=== PATIENT | male | born 1960 | race Caucasian/White ===

== ENCOUNTER 2016-04-27 05:23 | Inpatient (IN) | payer BC ==
[2016-04-01 12:53] VITALS: BMI 37.0
--- NOTE | 2016-04-01 13:26 | PAT Medication Instructions ---
Service Date Apr 01, 2016. Current Home Medication List Allopurinol (Allopurinol), 300 MG PO HS Amlodipine (Norvasc), 5 MG PO HS Aspirin (Aspirin 81), 1 TAB PO HS Atorvastatin (Lipitor), 20 MG PO HS Esomeprazole Magnesium (Nexium), 40 MG PO HS Levothyroxine Sodium (Synthroid), 75 MCG PO HS Losartan Potassium (Cozaar), 1 TAB PO HS Winn-3 Fatty Acids (Fish Oil), 1,200 MG PO HS Sennosides-Docusate Sodium (Stool Softener), 1 TAB PO HS Medication Instructions For Your Scheduled Surgery - Hold the following medications 2 weeks prior to surgery: Winn-3 Fatty Acids (Fish Oil), 1,200 MG PO HS - Hold the following medications evening prior to surgery: Losartan Potassium (Cozaar), 1 TAB PO HS - Take the following medications as scheduled the night before surgery: Sennosides-Docusate Sodium (Stool Softener), 1 TAB PO HS Esomeprazole Magnesium (Nexium), 40 MG PO HS Levothyroxine Sodium (Synthroid), 75 MCG PO HS Allopurinol (Allopurinol), 300 MG PO HS Amlodipine (Norvasc), 5 MG PO HS Aspirin (Aspirin 81), 1 TAB PO HS Atorvastatin (Lipitor), 20 MG PO HS If you have any questions please call us at [phone] or [phone] ( Jane) or [phone]
--- NOTE | 2016-04-01 14:20 | DIAGNOSTIC IMAGING REPORT ---
CHEST PREADMISSION(PA/LAT) HISTORY: Preop. COMPARISON: Chest 05/23/2013. FINDINGS: The lungs are clear. Cardiac silhouette is normal in size. No pleural effusions. No pneumothorax. IMPRESSION: No acute process. Electronically signed by: Vicente Meng M.D. 04/01/2016 2:18 PM
[2016-04-01 14:50] LABS: BASO % 0.4 %; BASO ABS # 0.02 K/uL (0-0.2); COMPLETE YES; EOS % 5.5 %; HEMATOCRIT 42.5 % (42-52); IG% 0.2 %; LYMPH % 25.3 %; LYMPH ABS # 1.38 K/uL (1.2-3.4); MEAN CELL VOLUME 90.8 fL (80-100); MEAN CORPUSCULAR HEMOGLOBIN 31.2 pg (25-34); MEAN CORPUSCULAR HGB CONC 34.4 g/dl (32-36); MEAN PLATELET VOLUME 9.4 fL (7.4-10.4); MONO % 6.6 %; PLATELET COUNT 217 K/uL (130-400); RED BLOOD COUNT 4.68 M/uL (4.7-6.1); WHITE BLOOD COUNT 5.45 K/uL (4.8-10.8)
[2016-04-01 14:57] LABS: URINE APPEARANCE CLEAR (CLEAR); URINE BILIRUBIN NEG (NEG); URINE COLOR YELLOW; URINE EPITHELIAL CELL AUTO 0-5 /lpf (0-5); URINE NITRITE NEG (NEG); URINE SPECIFIC GRAVITY 1.016 (1.000-1.030); UROBILINOGEN NEG (NEG); ZZUR CULT IF INDIC CLEAN CATCH NO
[2016-04-01 15:04] LABS: PARTIAL THROMBOPLASTIN RATIO 1.2; PROTHROMBIN TIME (PATIENT) 10.6 SECONDS (9.0-12.0)
[2016-04-01 15:05] LABS: MANUAL MICROSCOPIC REQUIRED? NO; REVIEW REQ? NO
[2016-04-01 15:24] LABS: ESTIMATED AVERAGE GLUCOSE 123 mg/dl; HA1C FLAG Normal (Normal)
[2016-04-01 15:37] LABS: BUN/CREATININE RATIO 16.2 (10-20)
--- NOTE | 2016-04-26 18:37 | HISTORY & PHYSICAL EXAMINATION ---
DATE OF ADMISSION: 04/27/2016 CHIEF COMPLAINT: Chronic right hip pain. HISTORY OF PRESENT ILLNESS: This is a 55-year-old male patient of Dr. Tobar'carmen complaining of chronic right hip pain, longstanding, now progressively getting worse. The patient has been diagnosed with end-stage osteoarthritis per clinical and radiographic exams. The patient has failed conservative treatment including anti-inflammatories and intraarticular injections. The patient has increased pain with weightbearing activities and his pain does interfere with his activities of daily living. PAST MEDICAL HISTORY: Hypertension, hypercholesterolemia, sleep apnea, hypothyroidism, osteoarthritis, acid reflux, obesity. SOCIAL HISTORY: Nonsmoker, nondrinker. PAST SURGICAL HISTORY: Hernia repair, bilateral knee surgeries and right hand surgery. REVIEW OF SYSTEMS: The patient complains of chronic right hip pain. Otherwise, denies any shortness of breath, chest pain, nausea, vomiting or any other joint complaints. FAMILY HISTORY: Noncontributory. MEDICATIONS: 1. Meloxicam 15 mg daily. 2. Claritin 10 mg daily. 3. Lipitor 20 mg daily. 4. Norvasc 5 mg daily. 5. Cozaar 50 mg daily. 6. MiraLax 17 grams by mouth with water. 7. Allopurinol 300 mg daily. 8. Synthroid 75 mcg daily. 9. Lasix 20 mg daily. 10. Fish oil 1200 mg daily. 11. Aspirin 81 mg daily. ALLERGIES: No known drug allergies. PHYSICAL EXAMINATION: GENERAL: Well-developed, well-nourished 55-year-old male in no acute distress. He is alert and oriented x3 and pleasant. HEENT: Normocephalic, atraumatic. Extraocular motions are intact. Pupils are equal and reactive to light. HEART: Regular rate and rhythm. No murmurs are appreciated. LUNGS: Clear. ABDOMEN: Soft and nontender. EXTREMITIES: Right hip reveals pain with passive range of motion. He has a mild flexion contracture. Has 5/5 strength with pain. Neurologically and neurovascularly he is intact in his right lower extremity. DIAGNOSES: Right hip end-stage osteoarthritis, hypertension, hypercholesterolemia, sleep apnea, hypothyroidism, osteoarthritis, acid reflux, obesity. PLAN: The patient was advised of his diagnoses. Indications, risks, benefits, and postop course have all been reviewed. The patient wishes to proceed with a right total hip arthroplasty. Necessary consent forms, preoperative clearances will be obtained.
[2016-04-27] VITALS (11 sets, daily range): BP systolic 107–143; BP diastolic 66–95; PULSE 52–105; TEMP 36.5–37.2; O2SAT 93–99; Ht 177.8 cm; Wt 116.6 kg
[~2016-04-27] VITALS: Ht 177.8 cm; Wt 116.6 kg
[~2016-04-27 05:23] MED LIST: ALL300 PO; AMLO-110 PO; ASPI-435 PO; ATOR-22 PO; CZR50 PO; LEVO75TA PO; NXM/40 PO; OMEG120013 PO; SENNTAB23 PO
[2016-04-27] MEDS ORDERED: METOCLOPRAMIDE HCL 10 MG TAB PO SCH (06:00)
[2016-04-27] MEDS ORDERED: GABAPENTIN 300 MG CAP PO SCH (06:00)
[2016-04-27] MEDS ORDERED: ROPIVACAINE 5MG/ML 30 ML 150 MG, BUPIVACAINE/EPINEPHR 0.5% MPF 30 ML, KETOROLAC TROMETH... INFIL SCH ×6 (06:00)
[2016-04-27] MEDS ORDERED: CeleBREX 200 MG CAP PO SCH (06:00)
[2016-04-27] MEDS ORDERED: LACTATED RINGER'S 1000ML IV SCH (06:00)
[2016-04-27] MEDS ORDERED: DEXAMETHASONE 4 MG TAB PO SCH (06:00)
[2016-04-27] MEDS ORDERED: ACETAMINOPHEN 500 MG TAB PO SCH (06:00)
[2016-04-27] MEDS ORDERED: FAMOTIDINE 20 MG TAB PO SCH (06:00)
[2016-04-27] MEDS ORDERED: CEFAZOLIN 2000 MG/60 ML D5W 60 ML IV SCH (06:00)
[2016-04-27] MEDS ORDERED: BUPIVACAINE 0.5 % 5 MG/1 ML PF 10ML VIAL ONE (06:23)
[2016-04-27] MEDS ORDERED: MIDAZOLAM HCL 1 MG/ML 2ML VIAL ONE (06:54)
[2016-04-27] MEDS ORDERED: FENTANYL CITRATE INJ 50 MCG/1 ML 2 ML VIAL ONE ×2 (06:54→09:45)
[2016-04-27] MEDS ORDERED: ORTHO JOINT ANESTHETIC ONE (07:04)
[2016-04-27] MEDS: TRANEXAMIC ACID INJ 1,000 MG in SODIUM CHLORIDE 0.9% 100ML 100 ML IV SCH ×2 (07:08→12:05)
--- NOTE | 2016-04-27 07:14 | History & Physical Bridge Note ---
H&P Re-Evaluation Bridge Note: I have examined the patient, reviewed the History & Physical and in the interval since the performance of the History & Physical I have noted the following changes of clinical significance: No changes noted
[2016-04-27] MEDS ORDERED: PHENYLEPHRINE 100MCG/ML 5ML SYR IV PRN (07:45)
[2016-04-27] MEDS ORDERED: HYDROmorphone INJ 2 MG/ML SYR/VIAL IV PRN (07:45)
[2016-04-27] MEDS ORDERED: ATROPINE SULFATE 0.1 MG/ML 5ML SYR IV PRN (07:45)
[2016-04-27] MEDS ORDERED: ONDANSETRON INJ 2 MG/ML 2 ML VIAL IV PRN ×2 (07:45→10:30)
[2016-04-27] MEDS ORDERED: EpHEDrine SULFATE INJ 50 MG/ML AMP IV PRN (07:45)
[2016-04-27] MEDS ORDERED: BACITRACIN 50000 UNIT VIAL IR ONE (09:55)
[2016-04-27] MEDS ORDERED: POVIDONE-IODINE OP SOLN 30 ML BTL TOP ONE (09:55)
[2016-04-27] MEDS ORDERED: PROPOFOL IV EMULSION 10 MG/ML 20 ML VIAL IV ONE (10:08)
[2016-04-27] MEDS ORDERED: LIDOCAINE 2% 20 MG/ML 5ML SYR ONE (10:08)
--- NOTE | 2016-04-27 10:12 | [facility] Operative Report ---
Operative Report Operative Date Apr 27, 2016. Pre-Operative Diagnosis Right Hip End Stage Osteoarthritis Post-Operative Diagnosis same Procedure(s) Performed right total hip replacement Surgeon Dr. Colby Tobar Table Games Dual Rate Supervisor Surgeon(s) Madhu Lynn PA-C Estimated Blood Loss 100ML Findings grade 4 end stage djd Specimens A. Right femoral head Drains 2 hemovac Anesthesia spinal sedation and orthomix Complication(s) None Disposition Recovery Room / PACU Indications end stage djd oa hip I attest to the content of the Intraoperative Record and any orders documented therein. Any exceptions are noted below.
[2016-04-27] MEDS ORDERED: OXYCODONE HCL IR 5 MG TAB (IMMEDIATE RELEASE) PO PRN (10:30)
[2016-04-27] MEDS ORDERED: MAGNESIUM HYDROXIDE SUSP 30 ML UDC PO PRN (10:30)
[2016-04-27] MEDS ORDERED: ZOLPIDEM TARTRATE 5 MG TAB PO PRN (10:30)
[2016-04-27] MEDS ORDERED: MoRPHine SULFATE 2 MG/ML CARP IV PRN (10:30)
[2016-04-27] MEDS ORDERED: BISACODYL 10 MG SUPP PR PRN (10:30)
[2016-04-27] MEDS ORDERED: SOD PHOSPHATE/SOD BIPHOSPHATE ENEMA 132 ML BTL PR PRN (10:30)
--- NOTE | 2016-04-27 10:55 | DIAGNOSTIC IMAGING REPORT ---
PELVIS AND RIGHT HIP 2 VIEWS CLINICAL HISTORY: Postop hip arthroplasty COMPARISON STUDY: No previous studies for comparison. FINDINGS: There are postsurgical changes of a total right hip arthroplasty. There is no dislocation. There are no fractures. There are overlying surgical drains. There is air within soft tissues consistent with recent surgery.. IMPRESSION: Postsurgical changes of a total right hip arthroplasty. Electronically signed by: Jose Juan Freedman M.D. 04/27/2016 10:53 AM Dictated Date/Time: 04/27/2016 10:52 AM
--- NOTE | 2016-04-27 11:18 | Anesthesiology Progress Note ---
Anesthesia Post Op Note Date & Time Apr 27, 2016 at 11:18 Vital Signs Pain Intensity: 0 Vital Signs Past 12 Hours Date Time Temp Pulse Resp B/P Pulse Ox O2 Delivery O2 Flow Rate FiO2 04/27/16 10:55 61 14 105/69 95 Nasal Cannula 2 04/27/16 10:45 36.7 58 14 112/74 95 Nasal Cannula 2 04/27/16 10:35 62 16 116/70 95 Nasal Cannula 2 04/27/16 10:31 36.8 52 16 116/87 95 Room Air 04/27/16 05:54 36.8 60 20 143/95 95 Room Air Notes Mental Status: alert / awake / arousable, participated in evaluation Pt Amnestic to Procedure: Yes Nausea / Vomiting: adequately controlled Pain: adequately controlled Airway Patency, RR, SpO2: stable & adequate BP & HR: stable & adequate Hydration State: stable & adequate Anesthetic Complications: no major complications apparent
[2016-04-27] MEDS ORDERED: FURO-85 PO (12:03)
[2016-04-27] MEDS ORDERED: LORA10CA2 PO (12:03)
--- NOTE | 2016-04-27 12:11 | Medical Consult ---
Consultation Date of Consultation: Apr 27, 2016. Attending Physician: Marquise Tobar M.D. Reason for Consultation: medical mgmt History of Present Illness This is a 55 y/o male with PMHx of Hypothyroidism, HTN, Dyslipidemia and other problems as outlined below who presents POD 0 s/p R BOLIVAR performed by Dr. Tobar. Pt is doing well post-operatively. He denies post-op pain. Pt denies chest pain, palpitations, SOB, abd pain, N/V, bowel or bladder issues, LE edema , calf pain, lightheadedness/dizziness. Past Medical/Surgical History Medical Problems: (1) CAD (coronary artery disease) Status: Chronic (2) Dyslipidemia Status: Chronic (3) GERD (gastroesophageal reflux disease) Status: Chronic (4) Gout Status: Chronic (5) HTN (hypertension) Status: Chronic (6) Hypothyroidism Status: Chronic (7) KAMERON (obstructive sleep apnea) Status: Chronic Surgical Problems: (1) H/O hand surgery Status: Resolved (2) H/O hernia repair Status: Resolved (3) History of total right hip arthroplasty Permanent Comment: 04/27/2016 Status: Resolved (4) Hx of total knee arthroplasty Permanent Comment: bilateral 2014 Status: Resolved Social History Smoking Status: Never Smoker Alcohol Use: occasionally Drug Use: none Marital Status: Housing Status: lives with family Allergies Coded Allergies: Lisinopril (Verified Adverse Reaction, Unknown, dry mouth per PCP note , ) Omeprazole (Verified Adverse Reaction, Unknown, constipation/gas pains per PCP note , 04/27/16) Home Medications Active Reported Lasix (Furosemide) 20 Mg Tab 20 Mg PO DAILY PRN Claritin (Loratadine) 10 Mg Cap 10 Mg PO DAILY Stool Softener (Sennosides-Docusate Sodium) 1 Tab Tab 1 Tab PO HS Fish Oil ([place]-3 Fatty Acids) 1,200 Mg Cap 1,200 Mg PO HS Aspirin 81 (Aspirin) 81 Mg Tab 1 Tab PO HS Nexium (Esomeprazole Magnesium) 40 Mg Capcr 40 Mg PO HS Synthroid (Levothyroxine Sodium) 75 Mcg Tab 75 Mcg PO HS Cozaar (Losartan Potassium) 50 Mg Tab 1 Tab PO HS Norvasc (Amlodipine Besylate) 5 Mg Tab 5 Mg PO HS Lipitor (Atorvastatin Calcium) 20 Mg Tab 20 Mg PO HS Allopurinol 300 Mg Tab 300 Mg PO HS Current Inpatient Medications Current Inpatient Medications Medications (Trade) Dose Ordered Sig/Ricky Route Start Time Stop Time Status Last Admin Dose Admin Lactated Ringer's 1,000 ml @ 60 mls/hr [id number] IV 04/27/16 06:00 04/27/16 22:39 Cefazolin Sodium (Ancef 2000mg/60 ml D5W) 60 ml @ 100 mls/hr PREOP IV 04/27/16 06:00 04/27/16 18:00 04/27/16 07:20 100 MLS/HR Acetaminophen (Tylenol Tab) 1,000 mg PREOP PO 04/27/16 06:00 04/27/16 18:00 04/27/16 06:23 1,000 MG Celecoxib (CeleBREX CAP) 200 mg PREOP PO 04/27/16 06:00 04/27/16 18:00 04/27/16 06:23 200 MG Dexamethasone (Decadron Tab) 8 mg PREOP PO 04/27/16 06:00 04/27/16 18:00 04/27/16 06:24 8 MG Famotidine (Pepcid Tab) 20 mg PREOP PO 04/27/16 06:00 04/27/16 18:00 04/27/16 06:22 20 MG Gabapentin (Neurontin Cap) 600 mg PREOP PO 04/27/16 06:00 04/27/16 18:00 04/27/16 06:24 600 MG Metoclopramide HCl 10 mg 10 mg PREOP PO 04/27/16 06:00 04/27/16 18:00 04/27/16 06:24 10 MG Tranexamic Acid/ Sodium Chloride (Cyklokapron Inj/ Nss 100ml) 110 ml @ 660 mls/hr TODAY@06,0630 IV 04/27/16 06:00 04/27/16 18:00 04/27/16 07:08 660 MLS/HR Hydromorphone HCl (Dilaudid Inj) 0.5 mg Q5M PRN IV 04/27/16 07:45 04/27/16 12:45 Ondansetron HCl (Zofran Inj) 4 mg ONE PRN IV 04/27/16 07:45 04/27/16 12:45 Ephedrine Sulfate (EpHEDrine SULFATE INJ) 5 mg Q5M PRN IV 04/27/16 07:45 04/27/16 12:45 Atropine Sulfate (Atropine Sulfate 0.1MG/Ml Inj) 0.5 mg Q1M PRN IV 04/27/16 07:45 04/27/16 12:45 Phenylephrine HCl (Yandel-Synephrine 500MCG/5ML Syr) 100 mcg Q5M PRN IV 04/27/16 07:45 04/27/16 12:45 Allopurinol (Zyloprim Tab) 300 mg HS PO 04/27/16 21:00 05/27/16 20:59 UNV Amlodipine Besylate (Norvasc Tab) 5 mg HS PO 04/27/16 21:00 05/27/16 20:59 UNV Atorvastatin Calcium (Lipitor Tab) 20 mg HS PO 04/27/16 21:00 05/27/16 20:59 UNV Levothyroxine Sodium (Synthroid Tab) 75 mcg HS PO 04/27/16 21:00 05/27/16 20:59 UNV Losartan Potassium (coZAAR TAB) 50 mg HS PO 04/27/16 21:00 05/27/16 20:59 UNV Senna/Docusate Sodium (Senokot S Tab) 1 tab HS PO 04/27/16 21:00 05/27/16 20:59 UNV Non-Formulary Medication 40 mg 40 mg HS PO 04/27/16 21:00 05/27/16 20:59 UNV Potassium Chloride/Dextrose/ Sod Cl (D5W And 1/2nss + 20meq KCl) 1,000 ml @ 100 mls/hr Q10H IV 04/27/16 10:28 04/28/16 10:27 UNV Celecoxib (CeleBREX CAP) 200 mg BID PO 04/27/16 21:00 05/27/16 20:59 UNV Oxycodone HCl (Roxicodone Immediate Rel Tab) 1 TABLET FOR PAIN RATING... Q4H PRN PO 04/27/16 10:30 05/11/16 10:29 UNV Morphine Sulfate (MoRPHine SULFATE INJ) as above Q2H PRN IV 04/27/16 10:30 05/11/16 10:29 UNV Acetaminophen (Tylenol Tab) 1,000 mg Q8H PO 04/27/16 10:30 05/27/16 10:29 UNV Magnesium Hydroxide (Milk Of Magnesia Susp) 30 ml Q6H PRN PO 04/27/16 10:30 05/27/16 10:29 UNV Bisacodyl (Dulcolax Supp) 10 mg DAILY PRN VT 04/27/16 10:30 05/27/16 10:29 UNV Sodium Biphosphate/ Sodium Phosphate (Fleet Enema) 132 ml DAILY PRN VT 04/27/16 10:30 05/27/16 10:29 UNV Diphenhydramine HCl (Benadryl Cap) 25 mg Q8H PRN PO 04/27/16 10:30 05/27/16 10:29 UNV Zolpidem Tartrate (Ambien Tab) 5 mg HSZ PRN PO 04/27/16 10:30 05/27/16 10:29 UNV Multivitamins (Multivitamin Tab) 1 tab QAM PO 04/28/16 09:00 05/28/16 08:59 UNV Ondansetron HCl 4 mg 4 mg Q6H PRN IV 04/27/16 10:30 05/27/16 10:29 UNV Cefazolin Sodium/ Dextrose (Ancef Iv/D5 50ml) 60 ml @ 100 mls/hr Q8H IV 04/27/16 10:30 04/27/16 19:05 UNV Oxycodone HCl (Oxycontin Tab) 10 mg Q12H PO 04/27/16 10:30 05/11/16 10:29 UNV Aspirin (Ecotrin Tab) 81 mg BID PO 04/27/16 21:00 05/27/16 20:59 UNV Review of Systems Constitutional: No chills, No fatigue, No fever, No sweats, No weakness Eyes: No worsening of vision Respiratory: No cough, No shortness of breath Cardiovascular: No chest pain, No claudication, No edema, No palpitations Abdomen: No diarrhea, No nausea, No pain, No vomiting Musculoskeletal: No calf pain, No swelling Genitourinary - Male: No dysuria Neurologic: No weakness Psychiatric: No depression symptoms Endocrine: No fatigue Hematologic / Lymphatic: No abnormal bleeding/bruising Integumentary: No new/changing skin lesions Physical Exam Date Time Temp Pulse Resp B/P Pulse Ox O2 Delivery O2 Flow Rate FiO2 1/11/17 10:55 61 14 105/69 95 Nasal Cannula 2 04/27/16 10:45 36.7 58 14 112/74 95 Nasal Cannula 2 04/27/16 10:35 62 16 116/70 95 Nasal Cannula 2 04/27/16 10:31 36.8 52 16 116/87 95 Room Air 04/27/16 05:54 36.8 60 20 143/95 95 Room Air General Appearance: WD/WN, no apparent distress, + pertinent finding (Pt is sitting up in bed with at bedside) Head: normocephalic, atraumatic Eyes: normal inspection ENT: hearing grossly normal Neck: supple Respiratory/Chest: chest non-tender, lungs clear, normal breath sounds, no respiratory distress Cardiovascular: regular rate, rhythm, no edema, no murmur Abdomen/GI: normal bowel sounds, non tender, soft Back: normal inspection Extremities/Musculoskelatal: no calf tenderness, no pedal edema, + pertinent finding (surgical dressing in place over R hip with 1 drain noted containing blood) Neurologic/Psych: alert, normal mood/affect, oriented x 3 Skin: normal color, warm/dry Assessment & Plan Right HIP DJD S/P Right BOLIVAR -POD 0; surgery performed by Dr. Tobar -post-operative pain well managed -monitor for acute blood loss with daily H&H -pt encouraged to utilize spirometry to prevent post-op infection -hold ASA until cleared with surgical service -PT/OT -activity and wound care orders per ortho protocol -will continue to follow HYPOTHYROIDISM -cont levothyroxine GOUT -cont allopurinol GERD -cont nexium HTN -stable -cont norvasc and losartan -monitor DYSLIPIDEMIA -cont statin and fish oil DVT PROPHYLAXIS -per ortho protocol CODE STATUS -FULL CODE status DISPO -per ortho. Pt seen in collaboration with Dr. Rosen. Please see his addendum for further details. Thanks! Attending Note Patent seen & examined at bedside. Reviewed the above note and confirmed all the findings in person. Patient underwent Right Hip arthroplasty earlier today and has been doing reasonably well post-operatively well so far. Reviewed the medical history and medications. Will follow up with you. Thank you for this consultation. We will follow the patient with you during their hospital stay. You can reach a member of the [facility] Hospitalist Team 24/7 via pager @ [phone]. Patient will be followed by Dr. Delcid in AM. Gatito Rosen MD
[2016-04-27] MEDS: D5W AND 1/2NSS + 20MEQ KCL 1,000 ML IV SCH ×2 (12:37→22:26)
[2016-04-27] MEDS ORDERED: MoRPHine SULFATE 4 MG/ML 1 ML CARP\\VIAL IV PRN (12:45)
[2016-04-27] MEDS: ACETAMINOPHEN 500 MG TAB PO SCH ×2 (13:57→21:19)
[2016-04-27] MEDS: CEFAZOLIN IV 2,000 MG in DEXTROSE 5% 50ML 50 ML IV SCH ×2 (15:59→23:27)
--- NOTE | 2016-04-27 16:19 | OPERATIVE REPORT ---
DATE OF OPERATION: 04/27/2016 INDICATION FOR PROCEDURE: The patient is a 54-year-old male with chronic progressive osteoarthritis in his right hip. Radiographs demonstrate that he is [id number] in the right hip joint, grade 4 DJD due to osteoarthritis. He has some moderate osteoarthritis in his opposite hip but not [id number] yet. PREOPERATIVE DIAGNOSIS: End-stage osteoarthritis, right hip. POSTOPERATIVE DIAGNOSIS: Same. PROCEDURE: Right total hip arthroplasty. SURGEON: Dr. Tobar. BUNCH MAKER HAND: Madhu Lynn PA-C. ANESTHESIA: Spinal sedation and Orthomix. OPERATION AND FINDINGS: OPERATIVE PROCEDURE: The patient was taken to the operating room, anesthetized under spinal anesthetic. He had IV sedation. She was placed supine on the operating room table. He was placed on a sacral pad. He was translated to right side of the bed, so his right hip could be exposed. A roll was placed under his foot to flex his knee 90 degrees and hip 60 degrees. A towel roll was placed under his lumbar spine for support. The bed was placed in some Trendelenburg to drain the pelvic veins and tilted to the left to help expose the right hip. Right hip was sterilely prepped and draped in usual sterile fashion. A Hardinge type approach was performed to the right hip. Skin was incised sharply. The subcutaneous tissues were divided down to the fascia. There were elevated off the fascia. Fascia was divided longitudinally and the gluteus rafia fascia was split proximally. The trochanteric bursa was identified. It was resected. The gluteus medius was intact. The patient had very thick heavy muscles as he was a muscular male. The gluteus medius was split between its anterior 40% and posterior 60%. This was split down to the minimus. The minimus was divided and reflected off the capsule. The capsule was divided down to the hip joint. The incision was made through the medius tendon leaving a cuff of tissue for repair on the greater trochanter and then the vastus lateralis was split for about 3-3.5 cm. Then the muscular capsular flap was elevated off the hip joint. Hip was dislocated with flexion and external rotation utilizing a bone hook. The femoral head was eburnated bone. There were neck osteophytes noted. The femoral neck cut was made approximately 15 mm proximal to the lesser trochanter. Head and neck fragment were removed. The head was measured at about 56 mm in diameter. Then the acetabulum was inspected. There was a large thickened acetabular labrum and grade 4 wear with some superior lateral wear noted. The acetabular labrum was resected. Acetabular retractors were placed. A blunt Hohmann retractor was placed anteriorly and a double angled inferior ischial retractor was placed and a self-retaining superior retractor was impacted into the ilium. Soft tissue in the acetabular fossa was resected. The transverse acetabular ligament was released. The labrum was debrided and some of the osteophytes around the acetabulum were debrided with a rongeur. I used the Teliportme Accolade II total hip arthroplasty system with a Accolade II tapered pressfit stem and we used the Trident PSL cup. The first reamer was a 48 mm reamer. This was used to medialize the reaming to the inner table. Then went up in sequential reamers by 2 mm increments up to a 60, which had the best fit and fill. We did a trial reduction and this was satisfactory. The trial was removed after irrigation with antibiotic solution and bacitracin. The final acetabular shell, which was a Trident PSL 60 mm G shell was impacted into position. We had a good press fit. Two additional screws were placed with 6.5 x 25 and 60 mm bone screws were placed in the posterior superior quadrant. Then after irrigation with antibiotic solution and bacitracin the Trident X3 poly 10 degree liner was impacted into position. This was a 36 mm G liner. This was assessed to be stable and then we went ahead and exposed the femur with flexion and external rotation again. A box osteotome was used to open up the canal followed by canal reamer on power, followed by sequential broaches up to a 7, which had appropriate fit and fill. We used a standard neck length +0 trial and this gave approximately equal leg lengths with good stability through full range of motion including complete flexion, adduction, internal rotation, extension and external rotation. The trials were removed. After irrigation with antibiotic solution and bacitracin the final component which was the Accolade II stem size 7 with 132 degree neck angle was impacted until fully seated. Then the 36 mm Biolox ceramic +0 neck length femoral head was impacted onto the stem. This was reduced to the acetabulum. We did inject around the acetabular component with Orthomix injection in the soft tissues around the acetabulum and irrigated out the joint copiously with antibiotic solution with bacitracin. Then we did further injection of the Orthomix in the outer layers of the gluteus medius and the gluteus rafia and fascia and some subcutaneous tissues. Again, we irrigated copiously with antibiotic solution and bacitracin. Then, the 2 drains were brought out laterally and placed deep into the hip joint. Then the gluteus minimus was repaired with npejmd-[id number] #1 Vicryl sutures gaining capsular and minimus tendon repair. Then the medius was repaired with transosseous #5 FiberWire sutures using Wilfred-Juan suture technique and lateral row soft tissue fixation with interrupted #2 Fiberwire aefggt-yy-qeauf sutures. Then, the split in the medius was repaired with [id number]-uf-oedfb #1 Vicryl. The split in the vastus lateralis was repaired with ohkbrl-im-nsyuk #1 Vicryl and then the fascia donovan, gluteus rafia fascia was closed with interrupted vbxqus-nj-dxxqo #1 Vicryl and the subcutaneous tissues were closed with large needle #2 Vicryl to close the space and interrupted #2-0 Vicryl and skin was closed with saira and Silverlon sterile dressing was applied. ARIAS Ling was my nutrition assistant. He functioned as nutrition assistant for the entire procedure. He assisted in patient positioning, prepping, draping, hip positioning as necessary, soft tissue retraction, instrument management during the procedure and he performed the subcutaneous and skin closure and dressings and will participate in postoperative care of the patient. I attest to the content of the Intraoperative Record and any orders documented therein. Any exceptio ns are noted below.
[2016-04-27] MEDS: OXYCODONE HCL 10 MG TABCR (OXYCONTIN) PO SCH (21:00)
[2016-04-27] MEDS: ASPIRIN 81 MG ECTAB PO SCH (21:15)
[2016-04-27] MEDS: ALLOPURINOL 300 MG TAB PO SCH (21:15)
[2016-04-27] MEDS: PANTOprazole SOD 40 MG TAB PO SCH (21:16)
[2016-04-27] MEDS: OMEGA-3 (PURIFIED FISH OIL) 1 GM CAP PO SCH (21:17)
[2016-04-27] MEDS: LOSARTAN POTASSIUM 50 MG TAB PO SCH (21:17)
[2016-04-27] MEDS: AMLODIPINE BESYLATE 5 MG TAB PO SCH (21:17)
[2016-04-27] MEDS: DOCUSATE SODIUM/SENNA 50/8.6MG TAB PO SCH (21:17)
[2016-04-27] MEDS: CeleBREX 200 MG CAP PO SCH (21:18)
[2016-04-27] MEDS: ATORVASTATIN 20 MG TAB PO SCH (21:18)
[2016-04-28 03:13] VITALS: BP 109/66; PULSE 49; PULSE 57; TEMP 37; O2SAT 93
[2016-04-28 05:47] LABS: BASO % 0.1 %; BASO ABS # 0.01 K/uL (0-0.2); COMPLETE YES; EOS % 0.2 %; HEMATOCRIT 33.7 % (42-52); IG% 0.2 %; LYMPH % 10.3 %; LYMPH ABS # 1.28 K/uL (1.2-3.4); MEAN CELL VOLUME 89.2 fL (80-100); MEAN CORPUSCULAR HEMOGLOBIN 31.5 pg (25-34); MEAN CORPUSCULAR HGB CONC 35.3 g/dl (32-36); MEAN PLATELET VOLUME 9.6 fL (7.4-10.4); NEUT % 80.2 %; PLATELET COUNT 197 K/uL (130-400); RED BLOOD COUNT 3.78 M/uL (4.7-6.1); WHITE BLOOD COUNT 12.42 K/uL (4.8-10.8)
[2016-04-28] MEDS: LEVOTHYROXINE 75 MCG TAB PO SCH (05:48)
[2016-04-28] MEDS: ACETAMINOPHEN 500 MG TAB PO SCH ×3 (05:48→21:45)
[2016-04-28 06:16] LABS: BUN/CREATININE RATIO 12.8 (10-20); CALCIUM 8.7 mg/dl (8.5-10.1); CREATININE 1.1 mg/dl (0.60-1.40); POTASSIUM 4.2 mmol/L (3.5-5.1)
[2016-04-28] MEDS: D5W AND 1/2NSS + 20MEQ KCL 1,000 ML IV SCH (06:44)
[2016-04-28 07:02] VITALS: BP 119/77; PULSE 57; TEMP 36.7; O2SAT 96
--- NOTE | 2016-04-28 07:43 | Anesthesiology Progress Note ---
Anesthesia Post Op Note Date & Time Apr 28, 2016 at 07:42 Vital Signs Pain Intensity: 2.0 Vital Signs Past 12 Hours Date Time Temp Pulse Resp B/P Pulse Ox O2 Delivery O2 Flow Rate FiO2 04/28/16 07:02 36.7 57 16 119/77 96 Room Air 04/28/16 03:13 37.0 57 16 109/66 93 Room Air 04/27/16 23:20 Room Air 04/27/16 23:02 36.6 52 16 118/66 95 Notes Mental Status: alert / awake / arousable, participated in evaluation Pt Amnestic to Procedure: Yes Nausea / Vomiting: adequately controlled Pain: adequately controlled Airway Patency, RR, SpO2: stable & adequate BP & HR: stable & adequate Hydration State: stable & adequate Neuraxial Anesthesia: sensory block resolved Anesthetic Complications: no major complications apparent
[2016-04-28] MEDS: OXYCODONE HCL 10 MG TABCR (OXYCONTIN) PO SCH ×2 (09:00→20:46)
[2016-04-28] MEDS: ASPIRIN 81 MG ECTAB PO SCH ×2 (09:02→20:47)
[2016-04-28] MEDS: LORATADINE 10 MG TAB PO SCH (09:02)
[2016-04-28] MEDS: MULTIVITAMIN TAB PO SCH (09:02)
[2016-04-28] MEDS: CeleBREX 200 MG CAP PO SCH ×2 (09:02→20:49)
[2016-04-28 11:33] VITALS: BP 110/73; PULSE 55; TEMP 36.7; O2SAT 96
--- NOTE | 2016-04-28 14:19 | Orthopedic Progress Note ---
Orthopedic Progress Note Date of Service Apr 28, 2016. Subjective Post OP Day: 1 Reports: feeling well, Denies: SOB, calf pain, chest pain, light headedness, nausea / vomiting Additional Notes: Feeling sore over the operative site currently. No other complaints. States he walked 4 laps around the unit today. Objective calves soft nontender, N/V intact, hip located, dressing C/D/I, A&O x3, toes mobile Thigh with swelling but soft Date Time Temp Pulse Resp B/P Pulse Ox O2 Delivery O2 Flow Rate FiO2 04/28/16 11:33 36.7 55 17 110/73 96 Room Air 04/28/16 07:48 Room Air 04/28/16 07:02 36.7 57 16 119/77 96 Room Air 04/28/16 03:13 37.0 57 16 109/66 93 Room Air 04/27/16 23:20 Room Air 04/27/16 23:02 36.6 52 16 118/66 95 04/27/16 19:07 37.2 53 18 137/73 95 Room Air 04/27/16 17:39 99 Room Air 04/27/16 15:45 Nasal Cannula 2.0 04/27/16 15:04 36.8 55 18 119/69 97 Nasal Cannula 3.0 04/27/16 14:18 36.5 55 16 126/77 97 2.0 Laboratory Results 24 Hours: Test 04/28/16 05:00 White Blood Count 12.42 K/uL Red Blood Count 3.78 M/uL Hemoglobin 11.9 g/dL Hematocrit 33.7 % Mean Corpuscular Volume 89.2 fL Mean Corpuscular Hemoglobin 31.5 pg Mean Corpuscular Hemoglobin Concent 35.3 g/dl Platelet Count 197 K/uL Mean Platelet Volume 9.6 fL Neutrophils (%) (Auto) 80.2 % Lymphocytes (%) (Auto) 10.3 % Monocytes (%) (Auto) 9.0 % Eosinophils (%) (Auto) 0.2 % Basophils (%) (Auto) 0.1 % Neutrophils # (Auto) 9.96 K/uL Lymphocytes # (Auto) 1.28 K/uL Monocytes # (Auto) 1.12 K/uL Eosinophils # (Auto) 0.03 K/uL Basophils # (Auto) 0.01 K/uL Assessment & Plan Assessment: POD 1 s/p Right BOLIVAR Plan: Continue PT/OT Planning for dc to home with Home Health Services tomorrow. Inhouse Planning Pain Management: Celebrex, Oxycontin, Morphine, PO Tylenol, Oxy IR DVT Prophylaxis: TEDs, SCDs, ASA Discharge Planning Discharge Planning: home with home health
[2016-04-28 15:18] VITALS: BP 117/69; PULSE 54; TEMP 36.3; O2SAT 95
--- NOTE | 2016-04-28 16:42 | Progress Note ---
Medicine Progress Note Date & Time of Visit: Apr 28, 2016 at 16:37. Subjective Patient seen and examined. Walking the hallways. Does note some soreness, but feels it is tolerable. Objective Last 8 Hrs Date Time Temp Pulse Resp B/P Pulse Ox O2 Delivery O2 Flow Rate FiO2 04/28/16 15:18 36.3 54 20 117/69 95 Room Air 04/28/16 11:33 36.7 55 17 110/73 96 Room Air Physical Exam: General-awake; alert; NAD Eyes-EOMI; no scleral icterus Neck-no stridor; trachea midline Lungs-CTA bilaterally; no wheezes/crackles Heart-RRR; no m/r/g Abdomen-soft; NTND; nBS Extremities-surgical bandage and drain c/d/i Neuro-no gross focal deficits Laboratory Results: Last 24 Hours Test 04/28/16 05:00 White Blood Count 12.42 K/uL Red Blood Count 3.78 M/uL Hemoglobin 11.9 g/dL Hematocrit 33.7 % Mean Corpuscular Volume 89.2 fL Mean Corpuscular Hemoglobin 31.5 pg Mean Corpuscular Hemoglobin Concent 35.3 g/dl Platelet Count 197 K/uL Mean Platelet Volume 9.6 fL Neutrophils (%) (Auto) 80.2 % Lymphocytes (%) (Auto) 10.3 % Monocytes (%) (Auto) 9.0 % Eosinophils (%) (Auto) 0.2 % Basophils (%) (Auto) 0.1 % Neutrophils # (Auto) 9.96 K/uL Lymphocytes # (Auto) 1.28 K/uL Monocytes # (Auto) 1.12 K/uL Eosinophils # (Auto) 0.03 K/uL Basophils # (Auto) 0.01 K/uL RDW Standard Deviation 39.8 fL RDW Coefficient of Variation 12.4 % Immature Granulocyte % (Auto) 0.2 % Immature Granulocyte # (Auto) 0.02 K/uL Sodium Level 143 mmol/L Potassium Level 4.2 mmol/L Chloride Level 108 mmol/L Carbon Dioxide Level 26 mmol/L Anion Gap 9.0 mmol/L Blood Urea Nitrogen 14 mg/dl Creatinine 1.10 mg/dl Est Creatinine Clear Calc Drug Dose 94.8 ml/min Estimated GFR () 85.9 Estimated GFR (Non- 74.1 BUN/Creatinine Ratio 12.8 Random Glucose 124 mg/dl Calcium Level 8.7 mg/dl Hepatitis C Antibody Screen NEG Assessment & Plan Right HIP DJD S/P Right BOLIVAR -surgery performed by Dr. Tobar on 04/27 -post-operative pain well managed -monitor for acute blood loss with daily H&H -pt encouraged to utilize spirometry to prevent post-op infection -ASA BID for prophylaxis per Ortho -PT/OT -activity and wound care orders per ortho protocol HYPOTHYROIDISM -cont levothyroxine GOUT -cont allopurinol GERD -cont PPI HTN -stable -cont amlodipine and losartan -monitor DYSLIPIDEMIA -cont statin and fish oil DVT PROPHYLAXIS -per ortho protocol CODE STATUS -FULL CODE status Current Inpatient Medications: Current Inpatient Medications Medications (Trade) Dose Ordered Sig/Ricky Route Start Time Stop Time Status Last Admin Dose Admin Allopurinol (Zyloprim Tab) 300 mg HS PO 04/27/16 21:00 05/27/16 20:59 04/27/16 21:15 300 MG Amlodipine Besylate (Norvasc Tab) 5 mg HS PO 04/27/16 21:00 05/27/16 20:59 04/27/16 21:17 5 MG Atorvastatin Calcium (Lipitor Tab) 20 mg HS PO 04/27/16 21:00 05/27/16 20:59 04/27/16 21:18 20 MG Levothyroxine Sodium (Synthroid Tab) 75 mcg DAILYBB PO 04/28/16 06:00 05/28/16 05:59 04/28/16 05:48 75 MCG Losartan Potassium (coZAAR TAB) 50 mg HS PO 04/27/16 21:00 05/27/16 20:59 04/27/16 21:17 50 MG Senna/Docusate Sodium (Senokot S Tab) 1 tab HS PO 04/27/16 21:00 05/27/16 20:59 04/27/16 21:17 1 TAB Pantoprazole Sodium (Protonix Tab) 40 mg HS PO 04/27/16 21:00 05/27/16 20:59 04/27/16 21:16 40 MG Celecoxib (CeleBREX CAP) 200 mg BID PO 04/27/16 21:00 05/27/16 20:59 04/28/16 09:02 200 MG Oxycodone HCl (Roxicodone Immediate Rel Tab) 1 TABLET FOR PAIN RATING... Q4H PRN PO 04/27/16 10:30 05/11/16 10:29 Morphine Sulfate (MoRPHine SULFATE INJ) 2 mg Q2H PRN IV 04/27/16 10:30 05/11/16 10:29 Acetaminophen (Tylenol Tab) 1,000 mg Q8H PO 04/27/16 14:00 05/27/16 10:29 04/28/16 13:38 1,000 MG Magnesium Hydroxide (Milk Of Magnesia Susp) 30 ml Q6H PRN PO 04/27/16 10:30 05/27/16 10:29 Bisacodyl (Dulcolax Supp) 10 mg DAILY PRN OH 04/27/16 10:30 05/27/16 10:29 Sodium Biphosphate/ Sodium Phosphate (Fleet Enema) 132 ml DAILY PRN OH 04/27/16 10:30 05/27/16 10:29 Diphenhydramine HCl (Benadryl Cap) 25 mg Q8H PRN PO 04/27/16 10:30 05/27/16 10:29 Zolpidem Tartrate (Ambien Tab) 5 mg HSZ PRN PO 04/27/16 10:30 05/27/16 10:29 Multivitamins (Multivitamin Tab) 1 tab QAM PO 04/28/16 09:00 05/28/16 08:59 04/28/16 09:02 1 TAB Ondansetron HCl (Zofran Inj) 4 mg Q6H PRN IV 04/27/16 10:30 05/27/16 10:29 Oxycodone HCl (Oxycontin Tab) 10 mg Q12 PO 04/27/16 21:00 05/11/16 20:59 Aspirin (Ecotrin Tab) 81 mg BID PO 04/27/16 21:00 05/27/16 20:59 04/28/16 09:02 81 MG Loratadine (Claritin Tab) 10 mg DAILY PO 04/28/16 09:00 05/28/16 08:59 04/28/16 09:02 10 MG Fish Oil ([place]-3 (Purified Fish Oil) Cap) 1 gm HS PO 04/27/16 21:00 05/27/16 20:59 04/27/16 21:17 1 GM Morphine Sulfate (MoRPHine SULFATE INJ) 4 mg Q2H PRN IV 04/27/16 12:45 05/11/16 12:44
[2016-04-28] MEDS: DOCUSATE SODIUM/SENNA 50/8.6MG TAB PO SCH (20:46)
[2016-04-28] MEDS: OMEGA-3 (PURIFIED FISH OIL) 1 GM CAP PO SCH (20:47)
[2016-04-28] MEDS: AMLODIPINE BESYLATE 5 MG TAB PO SCH (20:47)
[2016-04-28] MEDS: LOSARTAN POTASSIUM 50 MG TAB PO SCH (20:47)
[2016-04-28] MEDS: PANTOprazole SOD 40 MG TAB PO SCH (20:47)
[2016-04-28] MEDS: ALLOPURINOL 300 MG TAB PO SCH (20:47)
[2016-04-28] MEDS: ATORVASTATIN 20 MG TAB PO SCH (20:47)
[2016-04-28 23:24] VITALS: BP 131/77; PULSE 59; TEMP 37.1; O2SAT 95
[2016-04-29] MEDS: LEVOTHYROXINE 75 MCG TAB PO SCH (06:15)
[2016-04-29] MEDS: ACETAMINOPHEN 500 MG TAB PO SCH ×2 (06:15→13:42)
[2016-04-29 06:16] LABS: BASO % 0.3 %; BASO ABS # 0.03 K/uL (0-0.2); COMPLETE YES; EOS % 3.4 %; HEMATOCRIT 34.6 % (42-52); IG% 0.2 %; LYMPH % 21.9 %; LYMPH ABS # 1.88 K/uL (1.2-3.4); MEAN CELL VOLUME 89.4 fL (80-100); MEAN CORPUSCULAR HEMOGLOBIN 31.3 pg (25-34); MEAN PLATELET VOLUME 9.4 fL (7.4-10.4); MONO % 12.2 %; PLATELET COUNT 183 K/uL (130-400); RED BLOOD COUNT 3.87 M/uL (4.7-6.1); WHITE BLOOD COUNT 8.59 K/uL (4.8-10.8)
[2016-04-29 06:37] VITALS: BP 133/81; PULSE 61; TEMP 37.2; O2SAT 92
[2016-04-29 06:42] LABS: BUN/CREATININE RATIO 14.5 (10-20); CALCIUM 8.7 mg/dl (8.5-10.1); CREATININE 1.1 mg/dl (0.60-1.40); POTASSIUM 4.2 mmol/L (3.5-5.1)
[2016-04-29] MEDS: CeleBREX 200 MG CAP PO SCH (07:28)
[2016-04-29] MEDS: ASPIRIN 81 MG ECTAB PO SCH (07:28)
[2016-04-29] MEDS: LORATADINE 10 MG TAB PO SCH (07:28)
[2016-04-29] MEDS: OXYCODONE HCL 10 MG TABCR (OXYCONTIN) PO SCH (07:28)
[2016-04-29] MEDS: MULTIVITAMIN TAB PO SCH (07:28)
[2016-04-29 08:19] VITALS: BP 133/81; PULSE 61; TEMP 37.2; O2SAT 92
--- NOTE | 2016-04-29 08:52 | Orthopedic Progress Note ---
Orthopedic Progress Note Date of Service Apr 29, 2016. Subjective Post OP Day: 2 Reports: feeling well, pain controlled w PO medications, Denies: SOB, calf pain , chest pain, complaints, light headedness, nausea / vomiting Objective calves soft nontender, N/V intact, capillary refill less than 2 sec., dressing C /D/I, A&O x3, toes mobile Silverlon in tact Date Time Temp Pulse Resp B/P Pulse Ox O2 Delivery O2 Flow Rate FiO2 04/29/16 08:19 37.2 61 16 92 Room Air 04/29/16 08:18 Room Air 04/29/16 06:37 37.2 61 16 133/81 92 Room Air 04/28/16 23:35 Room Air 04/28/16 23:24 37.1 59 16 131/77 95 Room Air 04/28/16 16:15 Room Air 04/28/16 15:18 36.3 54 20 117/69 95 Room Air 04/28/16 11:33 36.7 55 17 110/73 96 Room Air Laboratory Results 24 Hours: Test 04/29/16 05:05 White Blood Count 8.59 K/uL Red Blood Count 3.87 M/uL Hemoglobin 12.1 g/dL Hematocrit 34.6 % Mean Corpuscular Volume 89.4 fL Mean Corpuscular Hemoglobin 31.3 pg Mean Corpuscular Hemoglobin Concent 35.0 g/dl Platelet Count 183 K/uL Mean Platelet Volume 9.4 fL Neutrophils (%) (Auto) 62.0 % Lymphocytes (%) (Auto) 21.9 % Monocytes (%) (Auto) 12.2 % Eosinophils (%) (Auto) 3.4 % Basophils (%) (Auto) 0.3 % Neutrophils # (Auto) 5.32 K/uL Lymphocytes # (Auto) 1.88 K/uL Monocytes # (Auto) 1.05 K/uL Eosinophils # (Auto) 0.29 K/uL Basophils # (Auto) 0.03 K/uL Assessment & Plan Assessment: POD 2 s/p Right BOLIVAR Plan: Continue PT/OT Planning for dc to home with Home Health Services tomorrow. Inhouse Planning Pain Management: Celebrex, Oxycontin, Morphine, PO Tylenol, Oxy IR DVT Prophylaxis: TEDs, SCDs, ASA Discharge Planning Discharge Planning: home with home health Pain Management: Celebrex, Oxycontin, PO Tylenol, Oxy IR DVT Prophylaxis: TEDs, ASA Therapy: Physical Therapy, Occupational Therapy
[2016-04-29] MEDS ORDERED: RXC5 PO (08:54)
[2016-04-29] MEDS ORDERED: ACET-1138 PO (08:54)
[2016-04-29] MEDS ORDERED: OXYSR10 PO (08:54)
[2016-04-29] MEDS ORDERED: ONDA8TAB6 PO (08:54)
[2016-04-29] MEDS ORDERED: ASPEC81 PO (08:54)
[2016-04-29] MEDS ORDERED: CLB200 PO (08:54)
--- NOTE | 2016-04-29 08:56 | Discharge Instructions ---
Discharge Instructions Admission Reason for Admission: Right Hip Degenerative Joint Disease Discharge Discharge Diagnosis / Problem: Right BOLIVAR Discharge Goals Goal(s): Improve function Activity Recommendations Activity Limitations: as noted below . Instructions / Follow-Up Instructions / Follow-Up ACTIVITY RECOMMENDATIONS: SELF CARE INSTRUCTIONS AFTER TOTAL HIP REPLACEMENT Until the incision and soft tissues around your hip have healed, there is a possibility that the hip prosthesis could dislocate. A. Observe the following precautions to prevent dislocation: 1. Don't bend your hip greater than 90 degrees. 2. Avoid crossing your legs or ankles while standing or lying. 3. Sit with your feet placed 6 inches apart. 4. When sitting, keep your knees below your hips. Sit on a firm surface, avoid deep, soft chairs and couches. Use an elevated toilet seat in the bathroom. 5. Don't bend over at the waist. Use a long handled shoehorn and a sock aid to help you put on your shoes and socks. A associate professor of psychology can help you pick up operator objects that are too high or too low to reach. 6. Keep car riding to a minimum for at least one month after surgery. B. Your balance may be shaky for a while. Use crutches or a walker until directed by your doctor. C. Use hand rails when walking on stairs. D. Wear low heeled shoes with non-slip soles. E. Be sure that your floors are free of things that could trip you - throw rugs , electrical cords, small objects. Avoid wet and waxed floors, especially with crutches and canes. F. Try to walk several times a day with rest periods between. G. Continue with all the exercises taught to you in the hospital. Again, make walking a part of your daily routine. SPECIAL CARE INSTRUCTIONS: VERY IMPORTANT TO READ AND REVIEW A. You may still be at risk for phlebitis and blood clots. 1. Wear surgical stockings (JUAN hose) for 2 weeks after surgery to improve circulation and reduce swelling. 2. Take Aspirin 81mg twice daily for 4 weeks or as directed by your doctor. This is your blood thinner. 3. High risk patients may be prescribed a stronger blood thinner if necessary. 4. If you are on Coumadin normally, your family doctor/press breaker should monitor your blood work. Expect a phone call the day of or the day after bloodwork is drawn to adjust your dosage. B. You must take antibiotics before having dental work, bladder, bowel and other surgery. Your doctor will provide you with a permanent card to carry describing precautions. C. Call [facility] if you have a fever, redness or swelling around the incision, cloudy drainage from incision, or sudden increase in pain in your hip, not relieved by your regular pain medication. D. Please call the office at if you have any concerns or questions about your operation or recovery. * YOU MAY SHOWER, NO TUB BATHS UNTIL CLEARED BY YOUR DOCTOR. * WEAR JUAN HOSE 20 HOURS PER DAY FOR 2 WEEKS. * YOU SHOULD USE A WALKER OR CRUTCHES FOR 2-4 WEEKS. THIS WILL HELP PREVENT STRAIN ON YOUR HIP MUSCLE AND ALLOW IT TO HEAL PROPERLY. YOU MAY WEAN TO A CANE TOLERATED. * MOST PATIENTS WILL HAVE HOME NURSING FOR THERAPY. IF YOU DECIDE TO DO OUTPATIENT PHYSICAL THERAPY, PLEASE SCHEDULE THIS 3 TIMES PER WEEK. * YOU MAY HAVE A LARGE, BAND-MILA LIKE DRESSING (SILVERON). THIS WILL REMAIN ON YOUR INCISION FOR 7 DAYS, THEN CAN BE REMOVED. IF INCISION IS LEAKING THROUGH DRESSING, PLEASE CALL THE OFFICE . FOLLOW UP VISIT: If appointment is not already scheduled: Please call [facility] to make a follow-up appointment for 2 weeks after your surgery at . Current Hospital Diet Patient's current hospital diet: Regular Diet Discharge Diet Recommended Diet: Regular Diet Procedures Procedures Performed: Right Total Hip Arthroplasty Uncemented Pending Studies Studies pending at discharge: no Laboratory Results Hemoglobin A1c Test 04/01/16 13:33 Range/Units Estimated Average Glucose 123 mg/dl Hemoglobin A1c 5.9 H 4.5-5.6 % Medical Emergencies . Who to Call and When: Medical Emergencies: If at any time you feel your situation is an emergency, please call 911 immediately. . Non-Emergent Contact Non-Emergency issues call your: Primary Care Provider . "Provider Documentation" section prepared by Madhu Lynn. VTE Core Measure Inpt VTE Proph given/why not?: Other Anticoagulation (asa), T.E.D. Stockings, SCD's
--- NOTE | 2016-04-29 20:07 | Progress Note ---
Medicine Progress Note Date & Time of Visit: Apr 29, 2016 at 20:06. Subjective Patient seen and examined. Doing well and is without complaints. Anticipating discharge home. Objective Physical Exam: General-awake; alert; NAD Eyes-EOMI; no scleral icterus Neck-no stridor; trachea midline Lungs-CTA bilaterally; no wheezes/crackles Heart-RRR; no m/r/g Abdomen-soft; NTND; nBS Extremities-surgical bandage c/d/i Neuro-no gross focal deficits Laboratory Results: Last 24 Hours Test 04/29/16 05:05 White Blood Count 8.59 K/uL Red Blood Count 3.87 M/uL Hemoglobin 12.1 g/dL Hematocrit 34.6 % Mean Corpuscular Volume 89.4 fL Mean Corpuscular Hemoglobin 31.3 pg Mean Corpuscular Hemoglobin Concent 35.0 g/dl Platelet Count 183 K/uL Mean Platelet Volume 9.4 fL Neutrophils (%) (Auto) 62.0 % Lymphocytes (%) (Auto) 21.9 % Monocytes (%) (Auto) 12.2 % Eosinophils (%) (Auto) 3.4 % Basophils (%) (Auto) 0.3 % Neutrophils # (Auto) 5.32 K/uL Lymphocytes # (Auto) 1.88 K/uL Monocytes # (Auto) 1.05 K/uL Eosinophils # (Auto) 0.29 K/uL Basophils # (Auto) 0.03 K/uL RDW Standard Deviation 40.7 fL RDW Coefficient of Variation 12.7 % Immature Granulocyte % (Auto) 0.2 % Immature Granulocyte # (Auto) 0.02 K/uL Sodium Level 144 mmol/L Potassium Level 4.2 mmol/L Chloride Level 109 mmol/L Carbon Dioxide Level 25 mmol/L Anion Gap 10.0 mmol/L Blood Urea Nitrogen 16 mg/dl Creatinine 1.10 mg/dl Est Creatinine Clear Calc Drug Dose 94.8 ml/min Estimated GFR () 85.9 Estimated GFR (Non- 74.1 BUN/Creatinine Ratio 14.5 Random Glucose 91 mg/dl Calcium Level 8.7 mg/dl Assessment & Plan Right HIP DJD S/P Right BOLIVAR -surgery performed by Dr. Tobar on 04/27 -post-operative pain well managed -monitor for acute blood loss with daily H&H -pt encouraged to utilize spirometry to prevent post-op infection -ASA BID for prophylaxis per Ortho -PT/OT -activity and wound care orders per ortho protocol HYPOTHYROIDISM -cont levothyroxine GOUT -cont allopurinol GERD -cont PPI HTN -stable -cont amlodipine and losartan -monitor DYSLIPIDEMIA -cont statin and fish oil DVT PROPHYLAXIS -per ortho protocol CODE STATUS -FULL CODE status
--- NOTE | 2016-05-14 15:47 | DISCHARGE SUMMARY ---
HISTORY OF PRESENT ILLNESS: This is a 55-year-old male patient of Dr. Tobar'carmen complaining of chronic right hip pain, longstanding, now progressively getting worse. The patient failed conservative treatment and was diagnosed with endstage osteoarthritis. The patient wishes to proceed with an elective right total hip arthroplasty. PAST MEDICAL HISTORY: Hypertension, hypercholesterolemia, sleep apnea, hypothyroidism, osteoarthritis, acid reflux and obesity. POSTOPERATIVE COURSE: The patient underwent a right total hip arthroplasty on 04/27/2016. He was followed closely with medical consultation, pain control, physical therapy and DVT prophylaxis in the form of aspirin. The patient did well postoperatively and was discharged home on postoperative day #2. PHYSICAL EXAMINATION: RIGHT HIP Silverlon dressing was clean, dry and intact. There was no redness or drainage. He had no calf tenderness. Negative Homans sign. Neurologically and neurovascularly was intact in his right lower extremity. DIAGNOSIS: Status post right total hip arthroplasty with a history of hypertension, hypercholesterolemia, sleep apnea, hypothyroidism, osteoarthritis, acid reflux and obesity. PLAN: The patient was discharged home with home health services. He will continue aspirin 81 mg twice daily for DVT prophylaxis. He will continue his preadmission medications and pain medications. The patient will follow up as an outpatient as scheduled.
[2016-10-31] MEDS ORDERED: MEGA RED PO (15:10)
[2016-10-31] MEDS ORDERED: SYN100 PO (15:10)
[2016-10-31] MEDS ORDERED: OMEG10007 PO (15:10)
[2016-10-31] MEDS ORDERED: CLB/200 PO (15:10)
[2016-10-31] MEDS ORDERED: ASPI81TA28 PO (15:10)
[2016-10-31] MEDS ORDERED: ESOM20CA PO (15:10)
== END 2016-04-29 14:10 | disposition home health service (06) | DRG 470 ==
LOC: ENRESERVDT → ENRESERVTM → C.ACU 05:23 → C.3E 06:00
PROVIDERS: ADMIT Orthopaedic Surgery Sports Medicine; ATTEND Orthopaedic Surgery Sports Medicine
PROC: 0SR904Z Replacement of Right Hip Joint with Ceramic on Polyethylene Synthetic Substitute, Open Approach (ICD-10-PCS; principal; 2016-04-27 07:15)
DX: M16.11 Unilateral primary osteoarthritis, right hip (principal); I10 Essential (primary) hypertension; E78.00 Pure hypercholesterolemia, unspecified; M10.9 Gout, unspecified; G47.33 Obstructive sleep apnea (adult) (pediatric); E03.9 Hypothyroidism, unspecified; I25.10 Atherosclerotic heart disease of native coronary artery without angina pectoris; K21.9 Gastro-esophageal reflux disease without esophagitis; E66.9 Obesity, unspecified; Z68.37 Body mass index [BMI] 37.0-37.9, adult; I44.4 Left anterior fascicular block; Z96.653 Presence of artificial knee joint, bilateral; Z79.1 Long term (current) use of non-steroidal anti-inflammatories (NSAID); Z79.82 Long term (current) use of aspirin; Z79.899 Other long term (current) drug therapy

== ENCOUNTER → 2016-06-09 | Outpatient (CLI) | payer BC ==
[~2016-06-09] MED LIST changes: +ACET-1138 PO; +ACET-24 PO; +ASPEC81 PO; -ASPI-435 PO; +ASPI81TA28 PO; +CLB/200 PO; +CLB200 PO; +ESOM20CA PO; +FURO-85 PO; +LORA10CA2 PO; +LOSA50TA6 PO; +MEGA RED PO; +MULT-890 PO; +OMEG10007 PO; -OMEG120013 PO; +ONDA8TAB6 PO; +OXYSR/10 PO; +OXYSR10 PO; +RXC5 PO; +SYN100 PO
--- NOTE | 2016-06-09 11:00 | DIAGNOSTIC IMAGING REPORT ---
Pain. Edema. RIGHT VENOUS DOPP LOWER EXT UNILAT CLINICAL HISTORY: R LEG PAIN/SWELLING Right postoperative pain TECHNIQUE: Doppler ultrasound COMPARISON STUDY: None FINDINGS: Study is negative for deep venous thrombosis. Compressibility and augmentation characteristics are unremarkable. Adjacent to the scar from the patient's prior hip surgery is a 10 x 7 cm collection. This most likely represents a postprocedural hematoma versus seroma IMPRESSION: 1. Study is negative for deep venous thrombosis. 2. 10 x 7 cm fluid collection lateral to the hip most likely a postoperative hematoma or seroma Electronically signed by: Madhu Manuel M.D. 06/09/2016 10:59 AM Dictated Date/Time: 06/09/2016 10:57 AM
== END | disposition home or self-care (01) ==
LOC: C.ULTR 10:21
PROVIDERS: ATTEND Orthopaedic Surgery Sports Medicine
DX: M79.89 Other specified soft tissue disorders (principal)

== ENCOUNTER 2016-11-04 08:45 | Inpatient (IN) | payer BC ==
[2016-10-31 11:28] VITALS: BMI 32.0
[2016-10-31 14:48] VITALS: BMI 36.0
--- NOTE | 2016-10-31 15:27 | PAT Medication Instructions ---
Service Date Oct 31, 2016. Current Home Medication List Allopurinol (Allopurinol), 300 MG PO HS Amlodipine (Norvasc), 5 MG PO HS Aspirin (Aspirin Ec), 81 MG PO QPM Celecoxib (CeleBREX), 1 CAP PO QPM Esomeprazole Magnesium (Nexium), 1 CAP PO QPM Fish Oil ([place]-3), 1 CAP PO QPM Levothyroxine Sodium (Synthroid), 1 TAB PO QPM Loratadine (Claritin), 10 MG PO DAILY PRN for ALLERGIC REACTION Losartan Potassium (Cozaar), 1 TAB PO HS Sennosides-Docusate Sodium (Stool Softener), 1 TAB PO HS [Robert Red], 500 MG PO QPM Medication Instructions For Your Scheduled Surgery - Hold the following medications as of 11/01/16: Fish Oil ([place]-3), 1 CAP PO QPM [Robert Red], 500 MG PO QPM - Hold the following medications 24 hours prior to surgery: Losartan Potassium (Cozaar), 1 TAB PO HS - Hold the following medications the morning of surgery: Loratadine (Claritin), 10 MG PO DAILY PRN for ALLERGIC REACTION - Take the following medications as scheduled the night before surgery: Esomeprazole Magnesium (Nexium), 1 CAP PO QPM Allopurinol (Allopurinol), 300 MG PO HS Amlodipine (Norvasc), 5 MG PO HS Aspirin (Aspirin Ec), 81 MG PO QPM Levothyroxine Sodium (Synthroid), 1 TAB PO QPM Sennosides-Docusate Sodium (Stool Softener), 1 TAB PO HS Celecoxib (CeleBREX), 1 CAP PO QPM nothing to eat or drink after midnight If you have any questions please call us at [phone] or [phone] or [phone]
[2016-10-31 16:07] LABS: BASO % 0.5 %; BASO ABS # 0.03 K/uL (0-0.2); COMPLETE YES; EOS % 5.7 %; HEMATOCRIT 41.5 % (42-52); IG% 0.2 %; LYMPH % 16.8 %; LYMPH ABS # 0.97 K/uL (1.2-3.4); MEAN CELL VOLUME 88.5 fL (80-100); MEAN CORPUSCULAR HEMOGLOBIN 29.2 pg (25-34); MEAN PLATELET VOLUME 9.1 fL (7.4-10.4); MONO % 9.4 %; NEUT % 67.4 %; PLATELET COUNT 225 K/uL (130-400); RED BLOOD COUNT 4.69 M/uL (4.7-6.1); WHITE BLOOD COUNT 5.76 K/uL (4.8-10.8)
[2016-10-31 16:13] LABS: BUN/CREATININE RATIO 16.2 (10-20); C-REACTIVE PROTEIN 0.4 mg/dl (0-0.29); CALCIUM 9.3 mg/dl (8.5-10.1); CREATININE 1.1 mg/dl (0.60-1.40); POTASSIUM 4.3 mmol/L (3.5-5.1)
[2016-10-31 16:22] LABS: PARTIAL THROMBOPLASTIN RATIO 1.1; PROTHROMBIN TIME (PATIENT) 10.6 SECONDS (9.0-12.0)
[2016-10-31 16:36] LABS: URINE APPEARANCE CLEAR (CLEAR); URINE BILIRUBIN NEG (NEG); URINE COLOR YELLOW; URINE NITRITE NEG (NEG); URINE SPECIFIC GRAVITY 1.012 (1.000-1.030); UROBILINOGEN NEG (NEG); ZZUR CULT IF INDIC CLEAN CATCH NO
[2016-10-31 16:56] LABS: MANUAL MICROSCOPIC REQUIRED? NO; REVIEW REQ? NO
[2016-11-01 06:48] LABS: ESTIMATED AVERAGE GLUCOSE 120 mg/dl; HA1C FLAG Normal (Normal)
--- NOTE | 2016-11-03 21:56 | History and Physical ---
History & Physical Date & Time of Service: Nov 03, 2016 at 21:49 Chief Complaint: Right Hip Hematoma S/P Total Hip Arthroplasty Primary Care Physician: Quinton Pacheco M.D. History of Present Illness Source: patient 56 yo male had BOLIVAR on the rt on 05/03/16, since then chronic hip pain, MRI shows hematoma/ seroma, no signs of infection. Failed conservative treatment. Past Medical/Surgical History Medical Problems: (1) CAD (coronary artery disease) Status: Chronic (2) Dyslipidemia Status: Chronic (3) GERD (gastroesophageal reflux disease) Status: Chronic (4) Gout Status: Chronic (5) HTN (hypertension) Status: Chronic (6) Hypothyroidism Status: Chronic (7) KAMERON (obstructive sleep apnea) Status: Chronic Surgical Problems: (1) H/O hand surgery Status: Resolved (2) H/O hernia repair Status: Resolved (3) History of total right hip arthroplasty Permanent Comment: 04/27/2016 Status: Resolved (4) Hx of total knee arthroplasty Permanent Comment: bilateral 2013 Status: Resolved Social History Smoking Status: Never Smoker Alcohol Use: none Drug Use: none Marital Status: Immunizations History of Influenza Vaccine: Yes History of Tetanus Vaccine?: Yes History of Pneumococcal: No History of Hepatitis B Vaccine: Yes Multi-Drug Resistant Organisms History of MDRO: No Allergies Coded Allergies: Atorvastatin (Verified Adverse Reaction, Unknown, MUSCLE ACHES, 10/31/16) Lisinopril (Verified Adverse Reaction, Unknown, dry mouth per PCP note , ) Omeprazole (Verified Adverse Reaction, Unknown, constipation/gas pains per PCP note , 10/31/16) Rosuvastatin (Verified Adverse Reaction, Unknown, MUSCLE ACHES, 10/31/16) Home Medications Scheduled Allopurinol (Allopurinol), 300 MG PO HS Amlodipine (Norvasc), 5 MG PO HS Aspirin (Aspirin Ec), 81 MG PO QPM Celecoxib (CeleBREX), 1 CAP PO QPM Esomeprazole Magnesium (Nexium), 1 CAP PO QPM Fish Oil ([place]-3), 1 CAP PO QPM Levothyroxine Sodium (Synthroid), 1 TAB PO QPM Losartan Potassium (Cozaar), 1 TAB PO HS Sennosides-Docusate Sodium (Stool Softener), 1 TAB PO HS [Robert Red], 500 MG PO QPM Scheduled PRN Loratadine (Claritin), 10 MG PO DAILY PRN for ALLERGIC REACTION Review of Systems Musculoskeletal: + joint pain, + muscle pain, + swelling (right hip chronic pain.) Physical Exam General Appearance: WD/WN, no apparent distress Head: normocephalic, atraumatic Eyes: normal inspection, PERRL, EOMI ENT: normal ENT inspection Neck: supple, no adenopathy Respiratory/Chest: chest non-tender, lungs clear Cardiovascular: regular rate, rhythm Abdomen/GI: normal bowel sounds, non tender, soft + tender greater troch area, normal gait, no erythema, no drainage, no warmth, N /V+, 5/5+ Impression Assessment and Plan Right hip hematoma s/p BOLIVAR w chronic pain Medical Problems: (1) CAD (coronary artery disease) Status: Chronic (2) Dyslipidemia Status: Chronic (3) GERD (gastroesophageal reflux disease) Status: Chronic (4) Gout Status: Chronic (5) HTN (hypertension) Status: Chronic (6) Hypothyroidism Status: Chronic (7) KAMERON (obstructive sleep apnea) Status: Chronic Surgical Problems: (1) H/O hand surgery Status: Resolved (2) H/O hernia repair Status: Resolved (3) History of total right hip arthroplasty Permanent Comment: 04/27/2016 Status: Resolved (4) Hx of total knee arthroplasty Permanent Comment: bilateral 2013 Status: Resolved Plan; Right hip I&D hematoma, poss repair abd tendon, poss poly exchange, poss femoral head exchange and placement of antibiotic beads. Advanced Directives Existing Living Will: No Existing Power of Tomato Pulper Operator: No
[~2016-11-04] VITALS: Ht 177.8 cm; Wt 113.3 kg
[2016-11-04] VITALS (8 sets, daily range): BP systolic 99–142; BP diastolic 62–92; PULSE 45–53; TEMP 36.1–36.8; O2SAT 94–98; Ht 177.8 cm; Wt 113.3 kg
[2016-11-04] MEDS: TRANEXAMIC ACID INJ 1,000 MG in SODIUM CHLORIDE 0.9% 100ML 100 ML IV SCH ×2 (06:30→11:32)
[~2016-11-04 08:45] MED LIST changes: -ACET-1138 PO; -ACET-24 PO; +ACETAMINOPHEN 500 MG TAB PO SCH; -ASPEC81 PO; -ATOR-22 PO; +CEFAZOLIN 2000 MG/60 ML D5W 60 ML IV SCH; -CLB200 PO; +CeleBREX 200 MG CAP PO SCH; +DEXAMETHASONE 4 MG TAB PO SCH; +FAMOTIDINE 20 MG TAB PO SCH; +FENTANYL CITRATE INJ 50 MCG/1 ML 2 ML VIAL ONE; -FURO-85 PO; +GABAPENTIN 300 MG CAP PO SCH; +LACTATED RINGER'S 1000ML 1,000 ML IV SCH; -LEVO75TA PO; +LIDOCAINE HCL 2% 2 ML VIAL (20MG/ML) ONE; -LOSA50TA6 PO; +METOCLOPRAMIDE HCL 10 MG TAB PO SCH; +MIDAZOLAM HCL 1 MG/ML 2ML VIAL ONE; -MULT-890 PO; -NXM/40 PO; -ONDA8TAB6 PO; -OXYSR/10 PO; -OXYSR10 PO; +PROPOFOL IV EMULSION 10 MG/ML 20 ML VIAL IV ONE; -RXC5 PO; +VANCOMYCIN INJ 1,750 MG in SODIUM CHLORIDE 0.9% 500ML 500 ML IV SCH
[2016-11-04] MEDS ORDERED: BUPIVACAINE 0.5 % 5 MG/1 ML PF 10ML VIAL ONE (10:41)
[2016-11-04] MEDS ORDERED: ONDANSETRON INJ 2 MG/ML 2 ML VIAL IV PRN ×2 (10:45→14:30)
[2016-11-04] MEDS ORDERED: ATROPINE SULFATE 0.1 MG/ML 5ML SYR IV PRN (10:45)
[2016-11-04] MEDS ORDERED: HYDROmorphone INJ 1 MG/ML SYR IV PRN (10:45)
[2016-11-04] MEDS ORDERED: FENTANYL CITRATE INJ 50 MCG/1 ML 2 ML VIAL IV PRN (10:45)
[2016-11-04] MEDS ORDERED: EpHEDrine SULFATE INJ 50 MG/ML AMP IV PRN (10:45)
[2016-11-04] MEDS ORDERED: BACITRACIN 50000 UNIT VIAL ONE ×3 (11:24→13:07)
[2016-11-04] MEDS ORDERED: VANCOMYCIN HCL 1000MG/20ML VIAL ONE (11:53)
[2016-11-04] MEDS ORDERED: PROPOFOL IV EMULSION 10 MG/ML 20 ML VIAL IV ONE ×3 (12:31→13:54)
[2016-11-04] MEDS ORDERED: ZOLPIDEM TARTRATE 5 MG TAB PO PRN (14:30)
[2016-11-04] MEDS ORDERED: ALUMINUM/MAGNESIUM/SIMETH (MAALOX MAX) 30 ML UDC PO PRN (14:30)
[2016-11-04] MEDS ORDERED: KETOROLAC TROMETHAMINE 30 MG/ML VIAL IV. SCH (14:30)
[2016-11-04] MEDS ORDERED: LORATADINE 10 MG TAB PO PRN (14:30)
--- NOTE | 2016-11-04 14:45 | [facility] Post Operative Brief Note ---
Immediate Operative Summary Operative Date Nov 04, 2016. Pre-Operative Diagnosis Right hip hematoma s/p right total hip replacement Post-Operative Diagnosis Right hip hematoma s/p right total hip replacement with abductor repair failure Procedure(s) Performed Right Hip Incision and Drainage Hematoma with abductor tendon repair,placement abx beads,superficial wound vac Surgeon Amadou Hospital Technician Surgeon(s) Monique Arnold PA-C Estimated Blood Loss 100CC Findings abductor repair failure old hematoma no infection Specimens A: Gram stain routine and anaerobic culture 1: Deep joint capsular tissue. Number of white cells for high powered field 2: hip capsule Drains 4 hemovac Anesthesia spinal general Complication(s) None Disposition Recovery Room / PACU
--- NOTE | 2016-11-04 14:51 | Anesthesiology Progress Note ---
Anesthesia Post Op Note Date & Time Nov 04, 2016 at 14:50 Vital Signs Pain Intensity: 0 Vital Signs Past 12 Hours Date Time Temp Pulse Resp B/P (MAP) Pulse Ox O2 Delivery O2 Flow Rate FiO2 11/04/16 14:45 36.3 48 13 125/73 94 Nasal Cannula 2 11/04/16 14:35 49 13 111/75 95 Nasal Cannula 2 11/04/16 14:25 54 16 113/77 96 Nasal Cannula 2 11/04/16 14:18 36.6 56 12 120/82 93 Nasal Cannula 2 11/04/16 09:44 36.7 53 20 129/89 95 Room Air Notes Mental Status: alert / awake / arousable, participated in evaluation Pt Amnestic to Procedure: Yes Nausea / Vomiting: adequately controlled Pain: adequately controlled Airway Patency, RR, SpO2: stable & adequate BP & HR: stable & adequate Hydration State: stable & adequate Neuraxial Anesthesia: was administered, sensory block is resolving Anesthetic Complications: no major complications apparent
[2016-11-04] MEDS: D5W AND 1/2NSS + 20MEQ KCL 1,000 ML IV SCH (18:13)
[2016-11-04] MEDS: CEFAZOLIN IV 2,000 MG in DEXTROSE 5% 50ML 50 ML IV SCH (20:01)
[2016-11-04] MEDS: OXYCODONE HCL IR 5 MG TAB (IMMEDIATE RELEASE) PO PRN (20:10)
[2016-11-04] MEDS: LOSARTAN POTASSIUM 50 MG TAB PO SCH (21:00)
[2016-11-04] MEDS ORDERED: CeleBREX 200 MG CAP PO SCH (21:00)
[2016-11-04] MEDS: ACETAMINOPHEN 500 MG TAB PO SCH (22:10)
[2016-11-04] MEDS: ALLOPURINOL 300 MG TAB PO SCH (22:11)
[2016-11-04] MEDS: ASPIRIN 81 MG ECTAB PO SCH (22:11)
[2016-11-04] MEDS: LEVOTHYROXINE 100 MCG TAB PO SCH (22:11)
[2016-11-04] MEDS: SENNA 8.6 MG TAB PO SCH (22:11)
[2016-11-04] MEDS: AMLODIPINE BESYLATE 5 MG TAB PO SCH (22:13)
[2016-11-05] VITALS (7 sets, daily range): BP systolic 98–124; BP diastolic 63–83; PULSE 47–63; TEMP 36.4–36.7; O2SAT 94–98
[2016-11-05] MEDS: OXYCODONE HCL IR 5 MG TAB (IMMEDIATE RELEASE) PO PRN ×3 (00:14→13:59)
[2016-11-05] MEDS: CEFAZOLIN IV 2,000 MG in DEXTROSE 5% 50ML 50 ML IV SCH (03:34)
[2016-11-05] MEDS: D5W AND 1/2NSS + 20MEQ KCL 1,000 ML IV SCH ×2 (03:34→13:00)
[2016-11-05] MEDS: ACETAMINOPHEN 500 MG TAB PO SCH ×3 (05:56→22:30)
[2016-11-05 06:23] LABS: BASO % 0.1 %; BASO ABS # 0.01 K/uL (0-0.2); COMPLETE YES; EOS % 0.6 %; HEMATOCRIT 31.5 % (42-52); IG% 0.2 %; LYMPH % 7.9 %; LYMPH ABS # 0.85 K/uL (1.2-3.4); MEAN CELL VOLUME 88.2 fL (80-100); MEAN CORPUSCULAR HEMOGLOBIN 29.1 pg (25-34); MEAN PLATELET VOLUME 9.2 fL (7.4-10.4); MONO % 8.7 %; NEUT % 82.5 %; PLATELET COUNT 207 K/uL (130-400); RED BLOOD COUNT 3.57 M/uL (4.7-6.1); WHITE BLOOD COUNT 10.82 K/uL (4.8-10.8)
[2016-11-05 06:57] LABS: BUN/CREATININE RATIO 15.5 (10-20); CALCIUM 8.3 mg/dl (8.5-10.1); CREATININE 1.3 mg/dl (0.60-1.40); POTASSIUM 4.5 mmol/L (3.5-5.1)
--- NOTE | 2016-11-05 08:28 | Progress Note ---
Orthopedic SOAP Note Subjective Date of Service: Nov 05, 2016. Additional Notes: pain last night but better this AM Objective N/V intact, hip located, dressing C/D/I Date Time Temp Pulse Resp B/P (MAP) Pulse Ox O2 Delivery O2 Flow Rate FiO2 11/05/16 08:00 36.6 47 14 119/81 (94) 98 Room Air 11/05/16 03:35 36.5 47 14 98/63 (75) 95 Room Air 11/05/16 00:00 Room Air 11/04/16 23:22 36.5 47 14 99/62 (74) 94 Room Air 11/04/16 18:47 36.8 49 18 113/66 (82) 96 Room Air 11/04/16 17:51 36.8 53 18 113/67 (82) 96 Nasal Cannula 1.0 11/04/16 16:45 36.5 45 15 116/73 (87) 95 Nasal Cannula 1.0 11/04/16 16:40 98 Nasal Cannula 2.0 11/04/16 16:25 98 Nasal Cannula 2.0 11/04/16 16:15 36.1 51 16 142/92 (109) 98 Nasal Cannula 2.0 11/04/16 15:45 36.4 45 16 125/79 (94) 98 Nasal Cannula 2.0 11/04/16 15:30 47 12 110/73 94 Nasal Cannula 2 11/04/16 15:15 47 13 101/71 95 Nasal Cannula 2 11/04/16 15:00 47 13 112/76 94 Nasal Cannula 2 11/04/16 14:45 36.3 48 13 125/73 94 Nasal Cannula 2 11/04/16 14:35 49 13 111/75 95 Nasal Cannula 2 11/04/16 14:25 54 16 113/77 96 Nasal Cannula 2 11/04/16 14:18 36.6 56 12 120/82 93 Nasal Cannula 2 11/04/16 09:44 36.7 53 20 129/89 95 Room Air Laboratory Results 24 Hours: Test 11/05/16 05:30 White Blood Count 10.82 K/uL Red Blood Count 3.57 M/uL Hemoglobin 10.4 g/dL Hematocrit 31.5 % Mean Corpuscular Volume 88.2 fL Mean Corpuscular Hemoglobin 29.1 pg Mean Corpuscular Hemoglobin Concent 33.0 g/dl Platelet Count 207 K/uL Mean Platelet Volume 9.2 fL Neutrophils (%) (Auto) 82.5 % Lymphocytes (%) (Auto) 7.9 % Monocytes (%) (Auto) 8.7 % Eosinophils (%) (Auto) 0.6 % Basophils (%) (Auto) 0.1 % Neutrophils # (Auto) 8.94 K/uL Lymphocytes # (Auto) 0.85 K/uL Monocytes # (Auto) 0.94 K/uL Eosinophils # (Auto) 0.06 K/uL Basophils # (Auto) 0.01 K/uL Assessment s/p abductor repair ,evacuation hematoma right hip Plan drains until tomorrow and then d/c wbat with walker or crutches 6 weeks no strengthening or lifting no abductor exercises
[2016-11-05] MEDS: ASPIRIN 81 MG ECTAB PO SCH ×2 (08:31→20:44)
[2016-11-05] MEDS: PANTOprazole SOD 40 MG TAB PO SCH (08:32)
[2016-11-05] MEDS: MULTIVITAMIN TAB PO SCH (08:32)
--- NOTE | 2016-11-05 10:14 | OPERATIVE REPORT ---
DATE OF OPERATION: 11/04/2016 INDICATION FOR PROCEDURE: The patient is a 56-year-old male who is status post a hip replacement about 6 months ago. He is noted to have swelling in his hip and soreness. He was able to go back to his job. On evaluation, appeared to have a fluid collection in his hip and we obtained an MRI which appeared to be a large hematoma in his hip and there was some concern that this communicated with the hip joint and some concern that he has had a failure of his abductor repair as he has had a lateral approach to the hip. We did obtain white blood cell count, a sed rate and CRP and none of these showed any significant elevation and there was no apparent sign of any infection. Radiographs demonstrate he has well aligned components. No loosening of any prosthetic components and the plan at this time is to proceed with an incision and drainage of hematoma, exploration and possible repair of abductor tendons. PROCEDURES: Incision and drainage of hematoma, right hip with repair of hip abductor tendons, gluteus medius and minimus with placement of drains and antibiotic beads. SURGEON: Dr. Tobar. FINANCIAL PLANNING ANALYST: ARIAS Danielle. ANESTHESIA: Spinal sedation. OPERATIVE PROCEDURE: The patient was taken to the operating room, anesthetized under a spinal anesthetic. He was placed supine on the operating room table. He was placed on a sacral pad. His right foot was placed on a foot roll to flex the knee 90 degrees and hip 60 degrees. The bed was placed in some Trendelenburg to drain the pelvic veins tilted to the left. The right hip was sterilely prepped and draped in usual sterile fashion. Hip exam demonstrated a stable range of motion of the hip, equal leg lengths and did have soft tissue swelling about the lateral hip, consistent with the hematoma. There was no erythema, no signs of infection, no drainage, well-healed incision. His hip was sterilely prepped and draped with ChloraPrep. His old scar was used for our incision. Incision was made through the skin and subcutaneous tissues down to the fascia donovan. This was all intact. We made some subcutaneous flaps to facilitate the fascia donovan repair. An incision was made through the fascia donovan and a large liquified hematoma was evacuated from the space just below the fascia donovan. There was the appearance of old hematoma that was there for quite some time as there were significant hemosiderin deposits throughout the soft tissues. There was no pus, no signs of infection. We did inspect the underlying gluteus medius repair and this was completely disrupted including the vastus lateralis part of the repair, the gluteus medius and minimus were all torn and retracted proximally. The fluid collection communicated with the hip joint. I did take samples of the hip joint capsule and some of the membrane and sent this to the lab and also sent cultures. The frozen sections came back no significant inflammatory process and some of the tissue was just blood clot. The old suture material was removed. We did obtain cultures prior to any irrigation with antibiotic solution. The hip joint was then copiously irrigated with pulsatile lavage antibiotic solution with bacitracin. We did a total of 6 liters of irrigation initially. When the frozen sections were back and we felt there was no infection. I went ahead and repaired the gluteus medius. First I curetted the membrane off the greater trochanter at the area of attachment site of the gluteus medius. I had to separate the gluteus medius from the overlying fascia donovan and tensor fascia donovan muscle. I developed this plane anteriorly and mobilized the gluteus medius from the fascia donovan. Then I placed a Naomi at the end of the gluteus medius tendon and then released all the scar tissue around that plane, so that we could fully mobilize that tendon back for repair. I tested the tension on the tissue, we were able to get an anatomic repair. The 2 Hemovac drains were then placed deep into the joint. Then we did mix Stimulan beads with vancomycin. We placed Stimulan beads into the hip joint prophylactically due to the revision surgery and then repaired the gluteus medius with transosseous #5 FiberWire sutures x3. We used Wilfred-Juan suture technique x2 in a simple technique in the superior portion of the medius. The split in the medius was repaired with jeqktc-[id number] #2 Fiberwire. The lateral medius repair to the tissue remaining on the greater trochanter with [id number] #2 FiberWire sutures and the vastus lateralis was repaired with suefhy-ao-smowu #2 FiberWire sutures, getting a complete repair. At this time, we irrigated the space between the abductors and the fascia donovan. Then we placed another set of drains in that space, brought them out slightly superior and lateral to the other drains. Then placed more Stimulan beads in that plane and then closed that layer with [id number]-[id number] #1 Vicryl sutures. Then after further irrigation with more antibiotic solution, we closed the subcutaneous tissues with interrupted 2-0 Vicryl and then the skin was closed with saira and a sterile dressing was applied. ARIAS Danielle, was my hr administrative assistant. She functioned as hr administrative assistant for the entire procedure. She assisted in patient positioning, assisted in leg positioning, soft tissue retraction and she assisted me in the subcutaneous closure and skin closure and will participate in the postoperative care of the patient. I attest to the content of the Intraoperative Record and any orders documented therein. Any exception s are noted below.
[2016-11-05] MEDS: SENNA 8.6 MG TAB PO SCH (20:44)
[2016-11-05] MEDS: LOSARTAN POTASSIUM 50 MG TAB PO SCH (20:44)
[2016-11-05] MEDS: ALLOPURINOL 300 MG TAB PO SCH (20:44)
[2016-11-05] MEDS: LEVOTHYROXINE 100 MCG TAB PO SCH (20:44)
[2016-11-05] MEDS: AMLODIPINE BESYLATE 5 MG TAB PO SCH (20:44)
--- NOTE | 2016-11-06 01:12 | CONSULTATION REPORT ---
DATE OF CONSULTATION: 11/05/2016 PRIMARY CARE PHYSICIAN: Dr. Pacheco. CONSULT REQUESTED BY: Dr. Tobar for medical management following right hip arthroplasty repair and evacuation of hematoma. HISTORY OF PRESENT COMPLAINT: He is a 56-year-old male with a significant past medical history including stable CAD, GERD, hypothyroidism, hypertension, obstructive sleep apnea, osteoarthritis, hyperlipidemia, apparently has had right total hip arthroplasty in April. He has had ongoing pain and hematoma involving the right hip who underwent surgery yesterday with repair of abductor muscle and also evacuation of hematoma from the right hip. He has had blood test, EKG and chest x-ray prior to the surgery which were unremarkable. Following surgery, he does have some pain in the right hip area, but does not have any other significant symptoms. Denies to have any headache, any blurred vision, any numbness or tingling in the extremities, any chest pain, shortness of breath, palpitation, abdominal pain, nausea or vomiting, any fever, chills, rigors, cough or phlegm and no problem with urine and/or bowel habit. PAST MEDICAL HISTORY: Significant for CAD, seems stable; GERD, hypertension, hyperlipidemia, sleep apnea, obesity, and generalized osteoarthritis. PAST SURGICAL HISTORY: Arthroplasty of the bilateral knees, status post right hip replacement. FAMILY HISTORY: Father had heart disease and father also had a stroke. SOCIAL HISTORY: He is . He does not smoke. He uses alcohol occasionally and he has been reasonably ambulant. MEDICATIONS: Aspirin 81 mg daily, Celecoxib 200 mg daily, fish oil as directed, stool softener as directed, allopurinol 300 mg at night, amlodipine 5 mg daily, levothyroxine 100 mcg daily, loratadine 10 mg daily, losartan potassium 1 tablet at night. He has been also getting pain medications in the hospital. ALLERGIES: TO ATORVASTATIN, LISINOPRIL, OMEPRAZOLE, AND OTHER STATINS. REVIEW OF SYSTEMS: Other systemic review unremarkable except those mentioned in history of present complaint. PHYSICAL EXAMINATION: GENERAL: On examination in the medical floor, he was not having any acute distress. VITAL SIGNS: Temperature 36.6, pulse was 47, blood pressure 119/81, saturation 98% on room air. HEENT: Unremarkable. NECK: Supple. No JVD, no bruit. CHEST: Clear to auscultation bilaterally. HEART: S1, S2 regular, no murmur. ABDOMEN: Soft, benign, nontender, no organomegaly. Bowel sounds present. EXTREMITIES: Negative for any edema. CENTRAL NERVOUS SYSTEM: Alert, awake, oriented x3 and no focal sensory and/or motor deficit appreciated. Of note, the left hip is status post surgery and bandaged, he has a drainage there and is draining fresh blood. LABORATORY DATA: Noted today white count was 10.82, H&H 10.4/31.5, platelets was 207. Sodium 140, potassium 4.5, chloride 108, carbon dioxide is 27, BUN 20, creatinine 1.30; calcium was 8.3. IMPRESSION AND PLAN: 1. Status post right hip surgery, removal of hematoma and abductor repair. Management will be as per orthopedic surgeon. 2. Hypertension, which is stable at this time. Continue current medications. 3. Hyperlipidemia. He cannot take any statin, has been on [place]-3 fish oil. 4. Hypothyroidism. Continue with current replacement. 5. Sleep apnea, not having any acute issues at this time. He can use his home CPAP in the hospital. 6. Gastrointestinal prophylaxis with Protonix. 7. Deep vein thrombosis prophylaxis as per ortho. Thank you for this consultation. We will be following with you as long as he is in the hospital. PIERRE
[2016-11-06] MEDS: ACETAMINOPHEN 500 MG TAB PO SCH ×2 (05:42→13:38)
[2016-11-06 06:35] LABS: HEMATOCRIT 31.5 % (42-52); MEAN CORPUSCULAR HEMOGLOBIN 29.1 pg (25-34); MEAN CORPUSCULAR HGB CONC 32.4 g/dl (32-36); MEAN PLATELET VOLUME 9.8 fL (7.4-10.4); PLATELET COUNT 183 K/uL (130-400); WHITE BLOOD COUNT 7.69 K/uL (4.8-10.8)
[2016-11-06 07:39] LABS: BUN/CREATININE RATIO 16.1 (10-20); CALCIUM 8.6 mg/dl (8.5-10.1); POTASSIUM 4.3 mmol/L (3.5-5.1)
[2016-11-06 08:23] VITALS: BP 126/75; PULSE 57; TEMP 36.7; O2SAT 98
[2016-11-06] MEDS: PANTOprazole SOD 40 MG TAB PO SCH (08:39)
[2016-11-06] MEDS: MULTIVITAMIN TAB PO SCH (08:39)
[2016-11-06] MEDS: ASPIRIN 81 MG ECTAB PO SCH (08:39)
--- NOTE | 2016-11-06 10:09 | Orthopedic Progress Note ---
Orthopedic Progress Note Date of Service Nov 06, 2016. Subjective Post OP Day: 2 Reports: feeling well, pain controlled w PO medications, Denies: chest pain, SOB , nausea / vomiting, light headedness, calf pain Objective calves soft nontender, N/V intact, hip located, capillary refill less than 2 sec., dressing C/D/I, A&O x3, toes mobile Date Time Temp Pulse Resp B/P (MAP) Pulse Ox O2 Delivery O2 Flow Rate FiO2 11/06/16 08:44 Room Air 11/06/16 08:23 36.7 57 18 126/75 (92) 98 Room Air 11/06/16 00:00 Room Air 11/05/16 22:52 36.7 52 14 110/68 (82) 94 Room Air 11/05/16 20:45 63 113/66 (82) 11/05/16 16:20 Room Air 11/05/16 15:52 36.4 55 18 124/67 (86) 94 Room Air 11/05/16 14:08 55 98 11/05/16 11:50 36.5 60 16 117/83 (94) 98 Room Air Laboratory Results 24 Hours: Test 11/06/16 05:10 Hematocrit 31.5 % Hemoglobin 10.2 g/dL Assessment & Plan Assessment: s/p abductor repair ,evacuation hematoma right hip Plan: drains removed and then d/c wbat with walker or crutches 6 weeks no strengthening or lifting no abductor exercises Inhouse Planning Pain Management: Oxycontin, Oxy IR DVT Prophylaxis: TEDs, SCDs, ASA Discharge Planning Discharge Planning: home Pain Management: Oxycontin, Oxy IR DVT Prophylaxis: TEDs, ASA
[2016-11-06] MEDS ORDERED: MULT-890 PO (10:13)
[2016-11-06] MEDS ORDERED: ASPEC81 PO (10:13)
[2016-11-06] MEDS ORDERED: ACET-24 PO (10:13)
[2016-11-06] MEDS ORDERED: OXYSR/10 PO (10:13)
[2016-11-06] MEDS ORDERED: RXC5 PO (10:13)
--- NOTE | 2016-11-06 10:19 | Discharge Instructions ---
Discharge Instructions Date of Service Nov 06, 2016. Admission Reason for Admission: Right Hip Hematoma S/P Total Hip Arthroplasty Discharge Discharge Diagnosis / Problem: S/P right abductor repair and evacuation Hematoma Discharge Goals Goal(s): Decrease discomfort, Improve function, Increase independence Activity Recommendations Activity Limitations: per Instructions/Follow-up section Weightbearing Status: Right partial ACTIVITY RECOMMENDATIONS: SELF CARE INSTRUCTIONS AFTER TOTAL HIP REPLACEMENT Until the incision and soft tissues around your hip have healed, there is a possibility that the hip prosthesis could dislocate. A. Observe the following precautions to prevent dislocation: 1. Don't bend your hip greater than 90 degrees. 2. Avoid crossing your legs or ankles while standing or lying. 3. Sit with your feet placed 6 inches apart. 4. When sitting, keep your knees below your hips. Sit on a firm surface, avoid deep, soft chairs and couches. Use an elevated toilet seat in the bathroom. 5. Don't bend over at the waist. Use a long handled shoehorn and a sock aid to help you put on your shoes and socks. A district adviser can help you tile picker objects that are too high or too low to reach. 6. Keep car riding to a minimum for at least one month after surgery. B. Your balance may be shaky for a while. Use crutches or a walker until directed by your doctor. C. Use hand rails when walking on stairs. D. Wear low heeled shoes with non-slip soles. E. Be sure that your floors are free of things that could trip you - throw rugs , electrical cords, small objects. Avoid wet and waxed floors, especially with crutches and canes. F. Try to walk several times a day with rest periods between. G. Continue with all the exercises taught to you in the hospital. Again, make walking a part of your daily routine. SPECIAL CARE INSTRUCTIONS: VERY IMPORTANT TO READ AND REVIEW A. You may still be at risk for phlebitis and blood clots. 1. Wear surgical stockings (JUAN hose) for 2 weeks after surgery to improve circulation and reduce swelling. 2. Take Aspirin 81mg twice daily for 4 weeks or as directed by your doctor. This is your blood thinner. 3. High risk patients may be prescribed a stronger blood thinner if necessary. 4. If you are on Coumadin normally, your family doctor/lead front desk agent should monitor your blood work. Expect a phone call the day of or the day after bloodwork is drawn to adjust your dosage. B. You must take antibiotics before having dental work, bladder, bowel and other surgery. Your doctor will provide you with a permanent card to carry describing precautions. C. Call [facility] if you have a fever, redness or swelling around the incision, cloudy drainage from incision, or sudden increase in pain in your hip, not relieved by your regular pain medication. D. Please call the office at if you have any concerns or questions about your operation or recovery. * YOU MAY SHOWER, NO TUB BATHS UNTIL CLEARED BY YOUR DOCTOR. * WEAR JUAN HOSE 20 HOURS PER DAY FOR 2 WEEKS. * YOU SHOULD USE A WALKER OR CRUTCHES FOR 6 WEEKS. THIS WILL HELP PREVENT STRAIN ON YOUR HIP MUSCLE AND ALLOW IT TO HEAL PROPERLY. YOU MAY WEAN TO A CANE TOLERATED. * MOST PATIENTS WILL HAVE HOME NURSING FOR THERAPY. IF YOU DECIDE TO DO OUTPATIENT PHYSICAL THERAPY, PLEASE SCHEDULE THIS 3 TIMES PER WEEK. * YOU MAY HAVE A LARGE, BAND-MILA LIKE DRESSING (SILVERON). THIS WILL REMAIN ON YOUR INCISION FOR 7 DAYS, THEN CAN BE REMOVED. IF INCISION IS LEAKING THROUGH DRESSING, PLEASE CALL THE OFFICE . FOLLOW UP VISIT: If appointment is not already scheduled: Please call [facility] to make a follow-up appointment for 2 weeks after your surgery at . . Instructions / Follow-Up Instructions / Follow-Up F/U with Dr. Tobar in 10-14 days Current Hospital Diet Patient's current hospital diet: Regular Diet Discharge Diet Recommended Diet: Regular Diet Procedures Procedures Performed: Right Hip Incision and Drainage Hematoma with abductor tendon repair,placement abx beads,superficial wound vac Pending Studies Studies pending at discharge: no Laboratory Results Hemoglobin A1c Test 10/31/16 15:30 Range/Units Estimated Average Glucose 120 mg/dl Hemoglobin A1c 5.8 H 4.5-5.6 % Medical Emergencies . Who to Call and When: Medical Emergencies: If at any time you feel your situation is an emergency, please call 911 immediately. . Non-Emergent Contact Non-Emergency issues call your: Primary Care Provider . "Provider Documentation" section prepared by Danica Rahman. . VTE Core Measure Inpt VTE Proph given/why not?: Other Anticoagulation, T.E.D. Stockings, SCD's [place] Drug Monitoring Program Search Results: patient reviewed within database, no issues identified
--- NOTE | 2016-11-06 10:31 | Progress Note ---
Subjective Date of Service: Nov 06, 2016. Subjective Pt evaluation today including: conversation w/ patient, physical exam, lab review, review of studies, review of inpatient medication list Saw/examined the patient in room 312 No problems/issues to note Eating well +BM Review of Systems Constitutional: No fever, No chills Respiratory: No shortness of breath Cardiac: No chest pain Abdomen: No pain, No nausea, No vomiting, No diarrhea, No constipation Musculoskeletal: + joint pain (controlled with medications) Medications Current Inpatient Medications Medications (Trade) Dose Ordered Sig/Ricky Route Start Time Stop Time Status Last Admin Dose Admin Oxycodone HCl (Roxicodone Immediate Rel Tab) 1 TABLET FOR PAIN RATING... Q4H PRN PO 11/04/16 14:30 11/18/16 14:29 11/05/16 13:59 5 MG Acetaminophen (Tylenol Tab) 1,000 mg Q8H PO 11/04/16 22:00 12/04/16 21:59 11/06/16 05:42 1,000 MG Senna (Senokot Tab) 17.2 mg HS PO 11/04/16 21:00 12/04/16 20:59 11/05/16 20:44 17.2 MG Diphenhydramine HCl (Benadryl Cap) 25 mg Q8H PRN PO 11/04/16 14:30 12/04/16 14:29 Al Hydrox/Mg Hydrox/Simethicone (Maalox Max Susp) 15 ml Q4H PRN PO 11/04/16 14:30 12/04/16 14:29 Zolpidem Tartrate (Ambien Tab) 5 mg HSZ PRN PO 11/04/16 14:30 12/04/16 14:29 Multivitamins (Multivitamin Tab) 1 tab QAM PO 11/05/16 09:00 12/05/16 08:59 11/06/16 08:39 1 TAB Ondansetron HCl (Zofran Inj) 4 mg Q6H PRN IV 11/04/16 14:30 12/04/16 14:29 11/04/16 20:02 4 MG Pantoprazole Sodium (Protonix Tab) 40 mg QAM PO 11/05/16 09:00 12/05/16 08:59 11/06/16 08:39 40 MG Aspirin (Ecotrin Tab) 81 mg BID PO 11/04/16 21:00 12/04/16 20:59 11/06/16 08:39 81 MG Allopurinol (Zyloprim Tab) 300 mg HS PO 11/04/16 21:00 12/04/16 20:59 11/05/16 20:44 300 MG Amlodipine Besylate (Norvasc Tab) 5 mg HS PO 11/04/16 21:00 12/04/16 20:59 11/05/16 20:44 5 MG Levothyroxine Sodium (Synthroid Tab) 100 mcg QPM PO 11/04/16 21:00 12/04/16 20:59 11/05/16 20:44 100 MCG Loratadine (Claritin Tab) 10 mg DAILY PRN PO 11/04/16 14:30 12/04/16 14:29 Losartan Potassium (coZAAR TAB) 50 mg HS PO 11/04/16 21:00 12/04/16 20:59 11/05/16 20:44 50 MG Objective Vital Signs Date Time Temp Pulse Resp B/P (MAP) Pulse Ox O2 Delivery O2 Flow Rate FiO2 11/06/16 08:44 Room Air 11/06/16 08:23 36.7 57 18 126/75 (92) 98 Room Air 11/06/16 00:00 Room Air 11/05/16 22:52 36.7 52 14 110/68 (82) 94 Room Air 11/05/16 20:45 63 113/66 (82) 11/05/16 16:20 Room Air 11/05/16 15:52 36.4 55 18 124/67 (86) 94 Room Air 11/05/16 14:08 55 98 11/05/16 11:50 36.5 60 16 117/83 (94) 98 Room Air Physical Exam General Appearance: no apparent distress Respiratory/Chest: lungs clear, normal breath sounds, no respiratory distress, no accessory muscle use Cardiovascular: regular rate, rhythm, no edema, no murmur Abdomen: normal bowel sounds, non tender, soft Extremities: non-tender, normal inspection, no pedal edema Laboratory Results Last 24 Hours Test 11/06/16 05:10 White Blood Count 7.69 K/uL Red Blood Count 3.50 M/uL Hemoglobin 10.2 g/dL Hematocrit 31.5 % Mean Corpuscular Volume 90.0 fL Mean Corpuscular Hemoglobin 29.1 pg Mean Corpuscular Hemoglobin Concent 32.4 g/dl RDW Standard Deviation 46.8 fL RDW Coefficient of Variation 14.4 % Platelet Count 183 K/uL Mean Platelet Volume 9.8 fL Sodium Level 143 mmol/L Potassium Level 4.3 mmol/L Chloride Level 110 mmol/L Carbon Dioxide Level 30 mmol/L Anion Gap 3.0 mmol/L Blood Urea Nitrogen 16 mg/dl Creatinine 1.00 mg/dl Est Creatinine Clear Calc Drug Dose 101.5 ml/min Estimated GFR () 95.7 Estimated GFR (Non- 82.6 BUN/Creatinine Ratio 16.1 Random Glucose 89 mg/dl Calcium Level 8.6 mg/dl Assessment and Plan This is a 56 year old male with a PMH of HTN, Hypothyroidism presents for R hip repair s/p R hip repair doing well continue PT/OT WBAT discharge today as per ortho HTN continue amlodipine and Cozaar Hypothyroidism continue Synthroid HLD may need to hold [place] if bleed risk is high DVT ppx as per ortho FULL CODE
[2016-11-06 13:14] VITALS: BP 126/75; PULSE 57; TEMP 36.7; O2SAT 98
== END 2016-11-06 15:11 | disposition home or self-care (01) | DRG 908 ==
LOC: C.ACU 08:45 → C.3E 09:30 → ENRESERV 15:23
PROVIDERS: ADMIT Orthopaedic Surgery Sports Medicine; ATTEND Orthopaedic Surgery Sports Medicine
PROC: 0LQJ0ZZ Repair Right Hip Tendon, Open Approach (ICD-10-PCS; principal; 2016-11-04 10:00)
PROC: 0J9L00Z Drainage of Right Upper Leg Subcutaneous Tissue and Fascia with Drainage Device, Open Approach (ICD-10-PCS; principal; 2016-11-04 10:00)
PROC: 0KQN0ZZ Repair Right Hip Muscle, Open Approach (ICD-10-PCS; principal; 2016-11-04 10:00)
DX: M96.840 Postprocedural hematoma of a musculoskeletal structure following a musculoskeletal system procedure (principal); M96.89 Other intraoperative and postprocedural complications and disorders of the musculoskeletal system; S76.011A Strain of muscle, fascia and tendon of right hip, initial encounter; S76.211A Strain of adductor muscle, fascia and tendon of right thigh, initial encounter; Y83.8 Other surgical procedures as the cause of abnormal reaction of the patient, or of later complication, without mention of misadventure at the time of the procedure; Y79.2 Prosthetic and other implants, materials and accessory orthopedic devices associated with adverse incidents; I10 Essential (primary) hypertension; K21.9 Gastro-esophageal reflux disease without esophagitis; E78.5 Hyperlipidemia, unspecified; M15.9 Polyosteoarthritis, unspecified; M10.9 Gout, unspecified; I25.10 Atherosclerotic heart disease of native coronary artery without angina pectoris; G47.33 Obstructive sleep apnea (adult) (pediatric); E66.9 Obesity, unspecified; Z68.36 Body mass index [BMI] 36.0-36.9, adult; Z99.89 Dependence on other enabling machines and devices; Z96.641 Presence of right artificial hip joint; Z96.659 Presence of unspecified artificial knee joint; Z79.1 Long term (current) use of non-steroidal anti-inflammatories (NSAID); Z79.82 Long term (current) use of aspirin; Z79.899 Other long term (current) drug therapy

== ENCOUNTER 2016-11-13 11:26 | Emergency (ER) | payer BC ==
[~2016-11-13] VITALS: Ht 177.8 cm; Wt 110.0 kg
[~2016-11-13 11:26] MED LIST changes: +ACET-24 PO; -ACETAMINOPHEN 500 MG TAB PO SCH; +ASPEC81 PO; -ASPI81TA28 PO; -CEFAZOLIN 2000 MG/60 ML D5W 60 ML IV SCH; -CeleBREX 200 MG CAP PO SCH; -DEXAMETHASONE 4 MG TAB PO SCH; -FAMOTIDINE 20 MG TAB PO SCH; -FENTANYL CITRATE INJ 50 MCG/1 ML 2 ML VIAL ONE; -GABAPENTIN 300 MG CAP PO SCH; -LACTATED RINGER'S 1000ML 1,000 ML IV SCH; -LIDOCAINE HCL 2% 2 ML VIAL (20MG/ML) ONE; -METOCLOPRAMIDE HCL 10 MG TAB PO SCH; -MIDAZOLAM HCL 1 MG/ML 2ML VIAL ONE; +MULT-890 PO; +OXYSR/10 PO; -PROPOFOL IV EMULSION 10 MG/ML 20 ML VIAL IV ONE; +RXC5 PO; -VANCOMYCIN INJ 1,750 MG in SODIUM CHLORIDE 0.9% 500ML 500 ML IV SCH
[2016-11-13 11:29] VITALS: TEMP 36.5; Ht 177.8 cm; Wt 110.0 kg
--- NOTE | 2016-11-13 12:02 | EMERGENCY ROOM VISIT NOTE ---
History Report prepared by Charlotte: Per Leslie Under the Supervision of: Dr. Jorge Omer M.D. First contact with patient: 11:33 Chief Complaint: WOUND DEHISCENCE Stated Complaint: BLEEDING FROM SURGICAL SITE/HIP Nursing Triage Summary: Right hip incision started bleeding while he was getting breakfast. Original surgery in April. Piece of muscle ripped off from bone, repopened October 2016 NWB on right leg Family would like Amadou called. History of Present Illness The patient is a 56 year old male who presents to the Emergency Room with complaints of sudden wound dehiscence on his right hip occurring prior to arrival. The patient states that he had a total hip replacement in April, and then on the he had to get another surgery to remove a hematoma and to repair the tendon. The patient states that this morning he went up the stairs, sat down, and then the surgical wound started to gush blood. The patient states that after the first surgery there was some fluid and blood though nothing was done to it until the during the second surgery. The patient states that he is currently on aspirin 81mg twice per day, and he states that he has never taken Lovenox. The patient denies any neck pain, fevers, coughs, chills, chest pain, diarrhea, urinary symptoms, or new leg pain. Source of History: patient Onset: prior to arrival Position: other (right hip) Quality: other (bleeding) Timing: other (sudden) Associated Symptoms: No fevers, No chills, No cough, No neck pain, No chest pain, No diarrhea Review of Systems See HPI for pertinent positives and negatives. A total of ten systems were reviewed and were otherwise negative. Past Medical & Surgical Medical Problems: (1) CAD (coronary artery disease) (2) Degenerative joint disease (DJD) of hip (3) Dyslipidemia (4) GERD (gastroesophageal reflux disease) (5) Gout (6) Hip hematoma, right (7) HTN (hypertension) (8) Hypothyroidism (9) KAMERON (obstructive sleep apnea) Surgical Problems: (1) H/O hand surgery (2) H/O hernia repair (3) History of total right hip arthroplasty (4) Hx of total knee arthroplasty Social History Smoking Status: Never Smoker Drug Use: none Marital Status: Housing Status: lives with family Occupation Status: unemployed Current/Historical Medications Scheduled Acetaminophen (Sb Non-Aspirin Extra Stre), 1,000 MG PO Q8H Allopurinol (Allopurinol), 1 TAB PO HS Amlodipine (Norvasc), 5 MG PO HS Aspirin (Aspirin EC Low Dose), 81 MG PO BID Celecoxib (CeleBREX), 1 CAP PO QPM Esomeprazole Magnesium (Nexium), 1 CAP PO QPM Levothyroxine Sodium (Synthroid), 1 TAB PO QPM Losartan Potassium (Cozaar), 50 MG PO HS Sennosides-Docusate Sodium (Stool Softener), 1 TAB PO HS Allergies Coded Allergies: Atorvastatin (Verified Adverse Reaction, Unknown, MUSCLE ACHES, 11/13/16) Lisinopril (Verified Adverse Reaction, Unknown, dry mouth per PCP note , ) Omeprazole (Verified Adverse Reaction, Unknown, constipation/gas pains per PCP note , 11/13/16) Rosuvastatin (Verified Adverse Reaction, Unknown, MUSCLE ACHES, 11/13/16) Physical Exam Vital Signs Date Time Temp Pulse Resp B/P (MAP) Pulse Ox O2 Delivery O2 Flow Rate FiO2 11/13/16 13:19 66 18 126/85 98 11/13/16 11:29 36.5 66 18 145/80 97 Room Air Physical Exam GENERAL: Awake, alert, well-appearing, in no distress HENT: Normocephalic, atraumatic. Oropharynx unremarkable. EYES: Normal conjunctiva. Sclera non-icteric. NECK: Supple. No nuchal rigidity. FROM. No JVD. RESPIRATORY: Clear to auscultation. CARDIAC: Regular rate, normal rhythm. Extremities warm and well perfused. Pulses equal. ABDOMEN: Soft, non-distended. No tenderness to palpation. No rebound or guarding. No masses. RECTAL: Deferred. MUSCULOSKELETAL: Chest examination reveals no tenderness. The back is symmetrical on inspection without obvious abnormality. There is no CVA tenderness to palpation. No joint edema. LOWER EXTREMITIES: Right lateral upper leg incision site with post operative dressing still on with an underlying hematoma that appears old with some areas of yellow discoloration of the skin. Just under the incision dressing there is some fluctuance consistent with a hematoma, however the compartment is soft. Distal motor and sensation is intact. No active bleeding at this time. Calves are equal size bilaterally and non-tender. NEURO: Normal sensorium. No sensory or motor deficits noted. SKIN: No rash or jaundice noted. Medical Decision & Procedures Laboratory Results 11/13/16 11:55 Red Blood Count 3.71, Mean Corpuscular Volume 89.2, Mean Corpuscular Hemoglobin 29.4, Mean Corpuscular Hemoglobin Concent 32.9, Mean Platelet Volume 9.0, Neutrophils (%) (Auto) 69.1, Lymphocytes (%) (Auto) 16.9, Monocytes (%) (Auto) 7.8, Eosinophils (%) (Auto) 5.0, Basophils (%) (Auto) 0.5, Neutrophils # (Auto) 4.14, Lymphocytes # (Auto) 1.01, Monocytes # (Auto) 0.47, Eosinophils # (Auto) 0.30, Basophils # (Auto) 0.03 11/13/16 11:55 Test 11/13/16 11:55 White Blood Count 5.99 K/uL (4.8-10.8) Red Blood Count 3.71 M/uL (4.7-6.1) Hemoglobin 10.9 g/dL (14.0-18.0) Hematocrit 33.1 % (42-52) Mean Corpuscular Volume 89.2 fL (80-100) Mean Corpuscular Hemoglobin 29.4 pg (25-34) Mean Corpuscular Hemoglobin Concent 32.9 g/dl (32-36) Platelet Count 272 K/uL (130-400) Mean Platelet Volume 9.0 fL (7.4-10.4) Neutrophils (%) (Auto) 69.1 % Lymphocytes (%) (Auto) 16.9 % Monocytes (%) (Auto) 7.8 % Eosinophils (%) (Auto) 5.0 % Basophils (%) (Auto) 0.5 % Neutrophils # (Auto) 4.14 K/uL (1.4-6.5) Lymphocytes # (Auto) 1.01 K/uL (1.2-3.4) Monocytes # (Auto) 0.47 K/uL (0.11-0.59) Eosinophils # (Auto) 0.30 K/uL (0-0.5) Basophils # (Auto) 0.03 K/uL (0-0.2) RDW Standard Deviation 44.1 fL (36.4-46.3) RDW Coefficient of Variation 13.5 % (11.5-14.5) Immature Granulocyte % (Auto) 0.7 % Immature Granulocyte # (Auto) 0.04 K/uL (0.00-0.02) Anion Gap 6.0 mmol/L (3-11) Est Creatinine Clear Calc Drug Dose 90.9 ml/min Estimated GFR () 85.3 Estimated GFR (Non- 73.6 BUN/Creatinine Ratio 14.7 (10-20) Calcium Level 9.0 mg/dl (8.5-10.1) Laboratory results reviewed by or ED Course 1133: The patient was evaluated in room C10. A complete history and physical exam was performed. 1202: I discussed the patient's case with Dr. Tobar, [facility], and he states that there does not seem to be anything to be done today, and he would not admit for observation either. He recommends for them to call the office tomorrow, and he will see the patient. 1310: I reevaluated the patient. Discussed results and discharge instructions: He verbalized understanding and agreement. The patient is ready for discharge. Medical Decision I reviewed the patient's past medical history, medications, and the nursing notes as described above. ddx: post-operative hematoma, less likely infection, less likely fracture, less likely DVT. Patient is a 56 year old gentleman who presents to the emergency department with bleeding from right hip surgical wound per HPI. On arrival the patient is in no acute distress. A febrile with stable vital signs. On exam there is no active bleeding from surgical site. Post off the bandage was removed in incision site examined which showed intact saira. This area does it have what is consistent with a subacute hematoma consistent with the patient's postop status. Compartments are otherwise soft. Distal pulse, motor, sensory intact. Labs otherwise unremarkable including staple H and H suggesting no significant bleeding at this time. I discussed findings with the patients surgeon Dr. Smith and he believed that there was no need for an emergent intervention at this time. However, he would personally see the patient the following day in between surgical cases. Recommended Figure 8 oksana wrap to site for additional compression and this was placed.Plan was discussed with the patient who was agreeable. Patient was discharged per instructions. Medication Reconcilliation Current Medication List: was personally reviewed by or Blood Pressure Screening Patient's blood pressure: Elevated blood pressure Blood pressure disposition: Elevated BP felt to be situational Consults Time Called: 1158 Consulting Physician: Dr. Tobar, [facility] Returned Call: 1202 I discussed the patient's case with Dr. Tobar, [facility], and he states that there does not seem to be anything to be done today, and he would not admit for observation either. He recommends for them to call the office tomorrow, and he will see the patient. Impression Primary Impression: Hip hematoma, right Scribe Attestation The scribe's documentation has been prepared under my direction and personally reviewed by me in its entirety. I confirm that the note above accurately reflects all work, treatment, procedures, and medical decision making performed by me. Departure Information Dispostion Home / Self-Care Referrals Quinton Pacheco M.D. (PCP) Marquise Tobar M.D. Forms HOME CARE DOCUMENTATION FORM, IMPORTANT VISIT INFORMATION, WORK / SCHOOL INSTRUCTIONS Patient Instructions ED Hematoma, My [facility] Additional Instructions Please follow up with your surgeon, Dr. Tobar, tomorrow to be seen in between his surgical cases. Otherwise, your exam and lab results did not show signs of an emergent condition at this time. Return to the emergency department for worsening symptoms as described in the accompanying instructions.
[2016-11-13 12:23] LABS: BASO % 0.5 %; BASO ABS # 0.03 K/uL (0-0.2); COMPLETE YES; HEMATOCRIT 33.1 % (42-52); IG% 0.7 %; LYMPH % 16.9 %; LYMPH ABS # 1.01 K/uL (1.2-3.4); MEAN CELL VOLUME 89.2 fL (80-100); MEAN CORPUSCULAR HEMOGLOBIN 29.4 pg (25-34); MEAN CORPUSCULAR HGB CONC 32.9 g/dl (32-36); MONO % 7.8 %; NEUT % 69.1 %; PLATELET COUNT 272 K/uL (130-400); RED BLOOD COUNT 3.71 M/uL (4.7-6.1); WHITE BLOOD COUNT 5.99 K/uL (4.8-10.8)
[2016-11-13] MEDS ORDERED: ALL300 PO (12:29)
[2016-11-13] MEDS ORDERED: LOSA50TA6 PO (12:29)
[2016-11-13 12:43] LABS: BUN/CREATININE RATIO 14.7 (10-20); CREATININE 1.1 mg/dl (0.60-1.40); POTASSIUM 4.1 mmol/L (3.5-5.1)
[2016-11-13 13:19] VITALS: BP 126/85; PULSE 66; O2SAT 98
== END 2016-11-13 13:30 | disposition home or self-care (01) ==
LOC: C.EDB 11:28 → C.EDC 13:30
DX: S70.01XA Contusion of right hip, initial encounter (principal); X58.XXXA Exposure to other specified factors, initial encounter; I10 Essential (primary) hypertension; E78.5 Hyperlipidemia, unspecified; I25.10 Atherosclerotic heart disease of native coronary artery without angina pectoris; E03.9 Hypothyroidism, unspecified; K21.9 Gastro-esophageal reflux disease without esophagitis; M10.9 Gout, unspecified; G47.33 Obstructive sleep apnea (adult) (pediatric); Z96.641 Presence of right artificial hip joint; Z96.659 Presence of unspecified artificial knee joint; Z79.82 Long term (current) use of aspirin; Z79.899 Other long term (current) drug therapy; Z88.8 Allergy status to other drugs, medicaments and biological substances

== ENCOUNTER 2022-10-31 09:49 | Observation (INO) ==
--- NOTE | 2022-10-14 10:06 | PAT Medication Instructions ---
Medication Instructions Date of Service October 14, 2022 Home Medications allopurinol 300 mg tablet 300 mg PO HS amlodipine 5 mg tablet 5 mg PO HS aspirin 81 mg tablet,delayed release 81 mg PO HS celecoxib 200 mg capsule (Celebrex) 200 mg PO HS cholecalciferol (vitamin D3) 50 mcg (2,000 unit) tablet (Vitamin D3) 50 mcg PO HS fluticasone propionate 50 mcg/actuation nasal spray,suspension 1 spray intranasal HS levothyroxine 150 mcg tablet 150 mcg PO HS losartan 50 mg tablet 50 mg PO HS metoprolol succinate 25 mg tablet,extended release 24 hr 25 mg PO HS omega-3 fatty acids 1,000 mg PO HS omeprazole 20 mg capsule,delayed release 20 mg PO HS ASK your surgeon for instructions celecoxib 200 mg capsule (Celebrex) 200 mg PO HS STOP taking 2 weeks before surgery omega-3 fatty acids 1,000 mg PO HS Take evening before surgery allopurinol 300 mg tablet 300 mg PO HS amlodipine 5 mg tablet 5 mg PO HS aspirin 81 mg tablet,delayed release 81 mg PO HS (unless surgeon directed otherwise) cholecalciferol (vitamin D3) 50 mcg (2,000 unit) tablet (Vitamin D3) 50 mcg PO HS fluticasone propionate 50 mcg/actuation nasal spray,suspension 1 spray intranasal HS levothyroxine 150 mcg tablet 150 mcg PO HS losartan 50 mg tablet 50 mg PO HS metoprolol succinate 25 mg tablet,extended release 24 hr 25 mg PO HS omeprazole 20 mg capsule,delayed release 20 mg PO HS OTHERWISE NOTHING TO EAT OR DRINK AFTER MIDNIGHT Other Notes If you have any questions please call us at [phone] or [phone] or [phone] or [phone]
--- NOTE | 2022-10-21 11:23 | Anesthesiology Consultation ---
Date of Service October 21, 2022 Assessment & Plan (1) Encounter for pre-operative examination: Plan - PCP pre-op evaluation 10/20/22 [facility]: "...pre-op exam. Patient to have right shoulder replacement surgery with Dr Tobar on 10/31. Following with cardiology for cardiac clearance also...cleared by us as long as Cardiology clears him after the echo..." Cardiology subsequently cleared pt as below. - cardiology clearance 10/14/22 with addendums up to 10/21/22: "...preoperative evaluation in preparation for a right total shoulder arthroplasty on 10/31/2022...can ascend a flight of stairs without sob or chest pain...vertigo more or less cleared up...can achieve 4 METS...not having any concerning anginal or heart failure symptoms...risk for cardiac complication perioperatively is in the 1-4% range...echo before his procedure...EKG today does not show any PVCs...left anterior fascicular block is now a complete left bundle...not having any symptoms of chronotropic incompetence...change in EKG discussed with EP-just continue to monitor, no intervention needed and no change to surgical plan based on this...echo with new wall motion abnormalities. Discussed with Dr. Puentes- given that he did not have significant epicardial disease in 2019, unlikely due to CAD. This likely represents worsening nonischemic cardiomyopathy and he recommends maximizing heart failure medications...has not had a change to his functional capacity and can accomplish 4 METS...does not need further cardiac testing prior to his procedure...will avoid making medication adjustments such as starting Entresto until he gets through the stress of surgery..." - Outpatient joint assessment: Patient is currently scheduled for inpatient pathway. If re-evaluated pending system levels during current pandemic/surgeon requests outpatient pathway, patient is not acceptable candidate for outpatient joint program from anesthesia standpoint. Chart Review Chart Review: Acceptable Risk for Surgery and Patient seen in Pre Admission Testing Teaching & Discussion Pre-Anesthesia Teaching/Discussion Notes: Instructed NPO after midnight before surgery, except medications with 15 cc of water. Medication instructions provided according to the PAT guidelines. History Surgery Operation Date: 10/31/22 09:15 Proposed Procedures p Right Total Shoulder Arthroplasty, Biceps Tenodesis, Excision Loose Bodies - Marquise J Rogusky, MD Height/Weight Height: 5 ft 10 in Weight: 108.862 kg Allergies Allergy/AdvReac Type Severity Reaction Status Date / Time atorvastatin AdvReac Mild MUSCLE Verified 10/11/22 15:27 ACHES lisinopril AdvReac Mild dry mouth Verified 10/11/22 15:27 rosuvastatin AdvReac Mild MUSCLE Verified 10/11/22 15:27 ACHES tamiflu AdvReac Intermediate dizziness Uncoded 10/21/22 11:49 Medications Home Medications Medication Instructions Recorded Confirmed Last Taken allopurinol 300 mg tablet 300 mg PO HS 10/11/22 10/11/22 Unknown amlodipine 5 mg tablet 5 mg PO HS 10/11/22 10/11/22 Unknown aspirin 81 mg tablet,delayed 81 mg PO HS 10/11/22 10/11/22 Unknown release celecoxib 200 mg capsule (Celebrex) 200 mg PO HS 10/11/22 10/11/22 Unknown cholecalciferol (vitamin D3) 50 50 mcg PO HS 10/11/22 10/11/22 Unknown mcg (2,000 unit) tablet (Vitamin D3) fluticasone propionate 50 1 spray intranasal HS 10/11/22 10/11/22 Unknown mcg/actuation nasal spray,suspension levothyroxine 150 mcg tablet 150 mcg PO HS 10/11/22 10/11/22 Unknown loratadine 10 mg capsule 10 mg PO HS 10/11/22 10/11/22 Unknown losartan 50 mg tablet 50 mg PO HS 10/11/22 10/11/22 Unknown metoprolol succinate 25 mg 25 mg PO HS 10/11/22 10/11/22 Unknown tablet,extended release 24 hr omega-3 fatty acids 1,000 mg PO HS 10/11/22 10/11/22 Unknown omeprazole 20 mg capsule,delayed 20 mg PO HS 10/11/22 10/11/22 Unknown release Past Medical History Medical History (Updated 10/21/22 @ 11:57 by Tangela Lynch PA-C) Ascending aorta dilation DJD (degenerative joint disease) GERD (gastroesophageal reflux disease) controlled, stable per pt History of COVID-2019>denies hospitalization>resolved Hx of gout last flare several yrs ago Hx of pancreatitis last episode 2 yrs ago Hyperlipidemia Hypertension controlled, stable per pt Hypothyroidism LBBB (left bundle branch block) Nonischemic cardiomyopathy follows with [facility] cardiology Prediabetes PVCs (premature ventricular contractions) Sleep apnea cpap>"has not used for 8 months d/t shoulder pain, moving so much at night" Vertigo resolved per pt, has meclizine prn Patient denies h/o stroke, seizures, heart attack, heart failure, DM, blood clots or blood transfusions. Exercise / Class Metabolic Activity II 4-5 Yardwork/Stairs/Walk up hill (denies chest discomfort or shortness of breath with 1 FOS) Past Surgical History Surgical History (Updated 10/21/22 @ 11:21 by Tangela Lynch PA-C) H/O hand surgery right hand tendon repair H/O umbilical hernia repair x 2 History of anesthesia reaction post-tap headache after first hip replacement History of appendectomy History of cardiac cath x 2 (last one 3 years ago at [facility]/no stents) History of cholecystectomy History of colonoscopy History of ERCP History of revision of total hip arthroplasty right History of tooth extraction History of total hip arthroplasty right History of total knee replacement right/left Hx of vasectomy Past Anesthesia History No Family Hx of Anesthesia Complications and Other (post-spinal tap headache with initial hip replacement) History of PONV No Hx of PONV and No Hx of Motion Sickness Social History Smoking Status: Never smoker tobacco type: smokeless tobacco Do You Dip or Chew Tobacco: No (quit 10 years ago) Hx Alcohol Use: Yes alcohol intake frequency: holidays/special occasions only substance use type: does not use Review of Systems Patient denies chest pain, shortness of breath, dyspnea on exertion, fever, chills, cough, wheezing, or palpitations. Physical Exam Vital Signs Vitals BP 118/82 P 57 TEMP 97.8 SP02 94% on RA RESP 18 Physical Full cervical extension range of motion without pain TMD 3.5 finger breadths Mallampati Score 2 Dentition: chipped tooth upper left back and one cap; denies loose teeth, caps/crowns, implants or bridges Lungs: normal respiratory effort. Good air movement, clear throughout to auscultation, no adventitious breath sounds Cardiac: regular rate and rhythm, no murmurs noted Carotid arteries: negative bruit bilat Lab Results Anesthesia Preop Results Results Anesthesia Widget: WBC 5.43 K/ul (4.8-10.8) 10/21/22 Hgb 14.7 g/dl (14.0-18.0) 10/21/22 Hct 42.3 % (42.0-52.0) 10/21/22 Plt 210 K/uL (130-400) 10/21/22 Na 136 mmol/L (136-145) 10/21/22 K 4.5 mmol/L (3.5-5.1) 10/21/22 Cl 104 mmol/L (98-107) 10/21/22 CO2 28 mmol/L (21-32) 10/21/22 BUN 21 mg/dl (6-23) 10/21/22 Creat 1.00 mg/dl (0.6-1.4) 10/21/22 Glucose Level 84 mg/dl (70-99(Fasting)) 10/21/22 PT 10.8 Seconds (9.0-12.0) 10/21/22 PTT 29.9 Seconds (21.0-31.0) 10/21/22 INR 1.0 (0.9-1.1) 10/21/22 Urine Color Yellow 10/21/22 Urine Appearance Clear (Clear) 10/21/22 Urine pH 6.5 (4.5-7.5) 10/21/22 Urine Specific [place] 1.011 (1.000-1.030) 10/21/22 Urine Protein Negative (Negative) 10/21/22 Urine Glucose (UA) Negative (Negative) 10/21/22 Urine Ketones Negative (Negative) 10/21/22 Urine Blood Negative (Negative) 10/21/22 Urine Nitrite Negative (Negative) 10/21/22 Urine Bilirubin Negative (Negative) 10/21/22 Urine Urobilinogen Negative (Negative) 10/21/22 Urine Leukocyte Esterase Negative (Negative) 10/21/22 Blood Type O Positive 10/21/22 Antibody Screen NEGATIVE 10/21/22 Testing Electrocardiogram Date: 10/14/22 Sinus bradycardia with 1st degree AV block, rate 56 bpm Left sided IVCD Left axis deviation Chest X-Ray Date: 10/21/22 No acute cardiopulmonary findings. Echocardiogram Date: 10/20/22 EF 55% Severe hypokinesis of basal to mid inferolateral and basal to mid inferior and inferoseptal smith Mid to distal anterolateral and distal anterior smith are hypokinetiec Asymmetric septal hypertrophy Grade I diastolic dysfunction Dilated RV Mildly dilated LA Dilated RA Dilated aortic root (4.3 cm), ascending aorta (4.2 cm) and aortic arch (3.9 cm) Sclerotic, tricuspid aortic valve with trace to mild insufficiency Trace to mild mitral regurgitation Trace to mild tricuspid regurgitation Normal estimated pulmonary artery pressures, estimated PASP 28 mmHg Stress Test Date: 02/20/20 Pharmacologic Medium to large in size, mild intensity, partially reversible MPI defect of inferior and inferolateral myocardium EF 38% Cardiac Catheterization Date: 03/02/20 Left main: no angiographically evident disease LAD: no more than mild luminal irregularities in the LAD and its branches Cx: no evident significant disease RCA: no more than mild luminal irregularities No angiographically significant stenosis Coronary artery ectasia Mildly to moderately reduced LVEF Other Testing Carotid doppler 02/08/22 No hemodynamically significant stenosis seen within either carotid bifurcation region or either proximal internal carotid artery COVID-19 Risk Screen Screening Information COVID-19 Screen Date: 10/21/22 Exposure 21 Days Family/Household +COVID Last 21 Days: No Exposure 10 Days Any COVID Exposure Last 10 Days: No Symptoms Last 10 Days Experienced COVID Sx Last 10 Days: No + COVID 0-90 Days COVID + in Last 0-90 Days: No
--- NOTE | 2022-10-26 11:42 | History & Physical Report ---
Date of Service October 26, 2022 Assessment & Plan (1) Primary osteoarthritis, right shoulder: Plan: Treatment options discussed with the patient. He has failed conservative measures. He would like to proceed with surgical intervention. Risks, benefits and alternatives to surgery including but not limited to infection, DVT, pain, stiffness, need for revision surgery, damage to blood vessels, damage to nerves, PE, , were discussed with the patient and they wish to proceed. Plan for right total shoulder arthroplasty with Arthrosurface OVO motion system. Surgery scheduled for October 31 at [facility] with Dr. Tobar. All questions answered. Patient will follow-up postop. History of Present Illness Chief Complaint: Right shoulder pain Primary Care Provider: Quinton Pacheco MD 62-year-old male with past medical history significant for hypertension, high cholesterol, KAMERON, hypothyroidism, PVCs who presents with ongoing right shoulder pain. Pain is interfering with his daily activities. He has failed conservative measures. He would like to proceed with surgical intervention. Patient denies headaches, sweats, fevers, chills, double vision, blurred vision, cough, sore throat, dysphagia, chest pain, sob, wheezing, n/v/d/c, numbness, tingling, fatigue, urinary symptoms, mood disorders. ROS positive for right shoulder pain and stiffness. Allergies Allergy/AdvReac Type Severity Reaction Status Date / Time atorvastatin AdvReac Mild MUSCLE Verified 10/11/22 15:27 ACHES lisinopril AdvReac Mild dry mouth Verified 10/11/22 15:27 rosuvastatin AdvReac Mild MUSCLE Verified 10/11/22 15:27 ACHES tamiflu AdvReac Intermediate dizziness Uncoded 10/21/22 11:49 Home Medications Medication Instructions Recorded Confirmed Type allopurinol 300 mg tablet 300 mg PO HS 10/11/22 10/11/22 History amlodipine 5 mg tablet 5 mg PO HS 10/11/22 10/11/22 History aspirin 81 mg tablet,delayed 81 mg PO HS 10/11/22 10/11/22 History release celecoxib 200 mg capsule (Celebrex) 200 mg PO HS 10/11/22 10/11/22 History cholecalciferol (vitamin D3) 50 50 mcg PO HS 10/11/22 10/11/22 History mcg (2,000 unit) tablet (Vitamin D3) fluticasone propionate 50 1 spray intranasal HS 10/11/22 10/11/22 History mcg/actuation nasal spray,suspension levothyroxine 150 mcg tablet 150 mcg PO HS 10/11/22 10/11/22 History loratadine 10 mg capsule 10 mg PO HS 10/11/22 10/11/22 History losartan 50 mg tablet 50 mg PO HS 10/11/22 10/11/22 History metoprolol succinate 25 mg 25 mg PO HS 10/11/22 10/11/22 History tablet,extended release 24 hr omega-3 fatty acids 1,000 mg PO HS 10/11/22 10/11/22 History omeprazole 20 mg capsule,delayed 20 mg PO HS 10/11/22 10/11/22 History release Past Med/Surg History Medical History (Updated 10/26/22 @ 11:41 by Ángel Deutsch PA-C) Ascending aorta dilation DJD (degenerative joint disease) GERD (gastroesophageal reflux disease) controlled, stable per pt History of COVID-19 2019>denies hospitalization>resolved Hx of gout last flare several yrs ago Hx of pancreatitis last episode 2 yrs ago Hyperlipidemia Hypertension controlled, stable per pt Hypothyroidism LBBB (left bundle branch block) Nonischemic cardiomyopathy follows with [facility] cardiology Prediabetes PVCs (premature ventricular contractions) Sleep apnea cpap>"has not used for 8 months d/t shoulder pain, moving so much at night" Vertigo resolved per pt, has meclizine prn Surgical History (Updated 10/21/22 @ 11:21 by Tangela Lynch PA-C) H/O hand surgery right hand tendon repair H/O umbilical hernia repair x 2 History of anesthesia reaction post-tap headache after first hip replacement History of appendectomy History of cardiac cath x 2 (last one 3 years ago at [facility]/no stents) History of cholecystectomy History of colonoscopy History of ERCP History of revision of total hip arthroplasty right History of tooth extraction History of total hip arthroplasty right History of total knee replacement right/left Hx of vasectomy Social History Smoking Status: Never smoker Second Hand Exposure: Yes (as a child); Do You Dip or Chew Tobacco: No (quit 10 years ago); Hx Alcohol Use: Yes Preferred Language: Ukrainian Ict Project Manager Required: No Beliefs That Will Affect Care: None Current Living Situation: Spouse Feels Safe at Home: Yes Assistive Devices: CPAP and Glasses Review of Systems All systems reviewed & are unremarkable except as noted in HPI & below Physical Exam Constitutional: well developed and well nourished; no acute distress Eyes: PERRL, conjunctivae normal, anicteric sclerae ENMT: external ear and nose normal, oropharynx normal Neck: trachea midline, no thyromegaly Respiratory: normal respiratory effort, lungs clear to auscultation Cardiovascular: RRR, no murmur, no edema Musculoskeletal: Right shoulder: Crepitation with range of motion. Diffuse tenderness. Glenohumeral joint [id number] crepitation with range of motion. He has painful range of motion. External rotation is 0 degrees, internal rotation to 45 degrees, forward flexion to 150 degrees, abduction 120 degrees. Normal strength. Skin: no rashes, warm and dry Neurologic: patellar DTR's 2+ bilat, sensation intact Psychiatric: A+Ox3, euthymic affect Results & Data Diagnostic Findings Right shoulder radiographs demonstrate end-stage osteoarthritis right shoulder, [id number] glenohumeral joint with concentric wear. MRI demonstrates rotator cuff tendinopathy, may have some interstitial tearing without full-thickness tear. MRI also demonstrates biceps tendinopathy.
[~2022-10-31 09:49] MED LIST changes: -ACET-24 PO; +ACETAMINOPHEN 500 MG TAB PO SCH; -ALL300 PO; -AMLO-110 PO; -ASPEC81 PO; +BUPIVACAINE 0.5 % 5 MG/1 ML PF 10ML VIAL ONE; -CLB/200 PO; -CZR50 PO; +CeleBREX 200 MG CAP PO SCH; -ESOM20CA PO; +FAMOTIDINE 20 MG TAB PO SCH; +GABAPENTIN 600 MG DOSE PO SCH; -LORA10CA2 PO; +LR 15ML/HR IV SCH; +LR 60ML/HR IV SCH; -MEGA RED PO; +METOCLOPRAMIDE HCL 10 MG TABLET PO SCH; -MULT-890 PO; -OMEG10007 PO; -OXYSR/10 PO; -RXC5 PO; -SENNTAB23 PO; -SYN100 PO; +TRANEXAMIC ACID 1,000 MG **IV Intra-op IV SCH; +TRANEXAMIC ACID 1,000 MG **IV Pre-op IV SCH; +ceFAZolin 2000MG 2,000 MG/15 ML SYR IV SCH; +dexAMETHasone 4 MG TAB PO SCH
[2022-10-31] MEDS ORDERED: MIDAZOLAM HCL 1 MG/ML 2ML VIAL ONE (11:10)
[2022-10-31] MEDS ORDERED: fentaNYL citrate PF 100 MCG/2 ML VIAL ONE (11:10)
[2022-10-31] MEDS ORDERED: ROCURONIUM BROMIDE 10 MG/ML 5 ML VIAL IV ONE (11:13)
[2022-10-31] MEDS ORDERED: ONDANSETRON INJ 2 MG/ML 2 ML VIAL ONE (11:13)
[2022-10-31] MEDS ORDERED: PROPOFOL IV EMULSION 10 MG/ML 20 ML VIAL IV ONE (11:13)
[2022-10-31] MEDS ORDERED: SUCCINYLCHOLINE CHLORIDE 20 MG/ML 10 ML VIAL IV ONE (11:13)
[2022-10-31] MEDS ORDERED: LIDOCAINE 2% 2 ML VIAL/AMP(20MG/ML) INFIL ONE (11:13)
[2022-10-31] MEDS ORDERED: fentaNYL citrate PF 100 MCG/2 ML VIAL IV PRN (11:22)
[2022-10-31] MEDS ORDERED: ONDANSETRON INJ 2 MG/ML 2 ML VIAL IV PRN ×2 (11:22→17:48)
[2022-10-31] MEDS ORDERED: ATROPINE SULFATE 0.1 MG/ML 10ML SYR IV PRN (11:22)
[2022-10-31] MEDS ORDERED: KETOROLAC 30 MG/ML VIAL IV PRN (11:22)
[2022-10-31] MEDS ORDERED: EpINEphrine HCL INJ 1 MG/ML 1ML SYRINGE ONE (11:48)
--- NOTE | 2022-10-31 12:27 | History & Physical Bridge Note ---
Date of Service October 31, 2022 History & Physical Bridge Note I have examined the patient, reviewed the History & Physical and in the interval since the performance of the History & Physical I have noted the following changes of clinical significance: no changes noted
[2022-10-31] MEDS ORDERED: ePHEDrine sulfate 50 MG/ML AMP ONE (13:03)
[2022-10-31] MEDS ORDERED: PHENYLEPHRINE HCL 10 MG/ML VIAL ONE (13:51)
[2022-10-31] MEDS ORDERED: GLYCOPYRROLATE 0.2 MG/ML VIAL ONE (14:58)
--- NOTE | 2022-10-31 16:41 | Operative Report ---
Post Operative Report Pre & Post Diagnosis Operation Date: 10/31/22 11:55 Pre-Op Diagnosis: Right Shoulder End-stage glenohumeral Osteoarthritis, biceps tenosynovitis, loose body biceps tendon sheath and intra-articular Post-Op Diagnosis: Right Shoulder end-stage glenohumeral Osteoarthritis, biceps tenosynovitis, loose body biceps tendon sheath, intra-articular loose bodies, Degenerative glenoid labrum with calcification I identified the patient and participated in the time-out.: Yes Procedure Operation Date: 10/31/22 11:55 Actual Procedures p Right OVO motion Total Shoulder Arthroplasty, Biceps Tenodesis, Excision Loose Bodies(Right), debridement calcium deposits glenoid labrum - Marquise Tobar MD Surgeon Marquise Tobar MD Director Of Vendor Management Ángel BIANCHI Estimated Blood Loss 50 Findings Consistent with Post-Op Diagnosis Specimens largest of loose bodies Drains 2 Hemovac Anesthesia Type General Regional Complications none Disposition Accompanied Patient To Recovery: No Indications 62 male with multiple joint osteoarthritis with bilateral shoulder end-stage glenohumeral osteoarthritis [id number] now. He has had extensive conservative management now presents for shoulder replacement. Description of Procedure Patient was placed placed under regional block and general anesthetic. The Right upper extremity had a towel roll placed on the medial border of the scapula and translated to the side of the bed so it could be manipulated off of the bed as necessary. A foam headrest was placed and protective eyewear was placed. Lower extremities were well-padded. Patient was positioned in a beach chair position approximately 40 degrees. Shoulder exam demonstrated 170 degrees forward flexion and 100 degrees of AB duction but his external Rotation was only 10 degrees with the arm at the side. There was [id number]-cf-[id number] crepitation. The right upper extremity was prepped and draped in sterile fashion. A deltopectoral approach was performed with a longitudinal incision in a deltopectoral interval. The skin was incised sharply and the subcutaneous flaps were elevated. The cephalic vein was dissected out and retracted laterally with the deltoid. The clavipectoral fascia was divided at the lateral margin of the conjoined tendon and extended up to the CA ligament. A self-retaining retractor was placed. Biceps findings demonstrated marked fluid collection around the biceps tendon with a large loose body within the biceps tendon sheath. Biceps tendon proximally had widening and tendinopathy intra-articular aspect. A tenosynovectomy was performed and the large loose body was excised and the Biceps tendon was tenodesed to the pectoralis with hemjew-qu-hyzxn and whipstitch #2 FiberWire sutures. The chronic tenosynovitis was resected proximally as well and the proximal biceps resected. The circumflex vessels were tied off with silk ties and divided laterally. The subscapularis muscle fibers were at the level of the circumflex vessels dissection was taken down to the capsule and a Kitner elevator was used to release the inferior fibers of the capsule protecting the axillary nerve inferiorly. A blunt Hohmann retractors were placed between the inferior located axillary nerve and the capsule. This was verified with a tug test. there was a second large fluid collection coming out of the rotator interval and overlapping the upper subscapularis tendon. This was 2-1/2 x 4 cm. This was dissected out away from the underlying rotator cuff and divided at the level of the rotator interval opening up the rotator interval. The complete amount of tissue was resected. The Opening of the rotator interval was extended down to the glenoid. The subscapularis was taken down with a transtendinous incision leaving a cuff of tissue for repair on the lesser tuberosity. The incision was carried through the subscapularis to the capsule and then subperiosteally along the inferior capsule exposing the inferior humeral osteophytes. These demonstrated very large inferior osteophytes from anterior to posterior and some smaller circumferential osteophytes. The osteophytes were resected with an artist chisel and rongeur. The humeral head findings demonstrated Eburnated bone completely devoid of any articular cartilage. There was some loose bodies that were in the rotator interval tissue that were resected. After the osteophytes were resected humeral head is retracted posterior to the glenoid with a Fukuda retractor. The glenoid findings demonstrated Completely eburnated bone devoid of any of the articular cartilage and calcification of the posterior superior labrum some small loose bodies and type A concentric type wear pattern. Patient had a large glenoid. The labrum was resected Anteriorly and the calcified tissue was resected off the posterior labrum and I preserve the posterior capsular attachment for stability. and the biceps tendon resected. A 360 degree release of the subscapularis was performed. Only inferior and posterior inferior releases were performed about the glenoid. Subperiosteal release with electrocautery on the glenoid anterior and inferior and also utilizing a small Mckeon elevator to perform that release. Upon completion of the releases the humeral head was reexposed with retractors and humeral head was sized for a size 58 x 54 Arthrosurface OVO motion humeral head. The central guidepin was placed. The threaded stop for the reamer was drilled into the head. This was placed at the appropriate depth. The head reamer was used. All debris was irrigated out of the joint. The flat head resection reamer was used. The remaining conical section of bone was removed with a saw. a cut protector was placed.. The humerus was then retracted posteriorly again with the Fukuda retractor posterior to the glenoid. The guide for the glenoid component was placed and the guide pin was advanced to the appropriate depth. Glenoid reamers were utilized. The snowman type glenoid component was chosen due to the large size of the glenoid. The depth gauge verified the depth of the reaming. The drill hole for the central post was placed. Trial component was placed at satisfactory position and depth. Trial was removed and the glenoid reamed area was prepared for cementing with several drill holes placed around the reamed area to accept cement. Also a Medium sized inferior cyst was curetted out. After further irrigation the reamed area was packed with epinephrine soaked tampon sponges. The Palacos cement was vacuum mixed. The cement was injected into the glenoid and compressed with a finger compression device. More cement was placed on the back of the glenoid component and it was inserted into the reamed area in appropriate position with the suction device that held onto the component. When the component was appropriate seating position the suction was removed as well as a suction device and direct pressure was placed on of the component and excess cement was cleared and the component was held in position until the cement fully cured. Attention was taken back to the humerus. The humeral head guide was placed onto the humeral head in the appropriate position. The guidepin was readvanced in position. The 12 mm tapered post was inserted to appropriate depth with excellent fixation. At this time 3 drill holes were made along the lateral surface of the lesser tuberosity spanning the distance of the subscapularis attachment and 3 transosseous #5 FiberWire sutures were placed for repair of the subscapularis. After copious irrigation the Hernandez taper of the tapered post was dried and then the humeral component size 58 x 54 was impacted onto the taper post with stable fixation. This was assessed with a Mckeon elevator to be stable. This was then reduced to the glenoid and range of motion and stability was assessed. After copious irrigation the subscapularis was repaired with the #5 FiberWire sutures using Wilfred-Juan suture technique and lateral row soft tissue repair with #2 FiberWire yxrrwz-cs-khepa sutures and the rotator interval was closed in maximal external rotation with interrupted #2 FiberWire sutures. The pectoralis was repaired with interrupted gcrwnq-ec-socox #2 FiberWire sutures. Infection Range of motion was assessed demonstrating 170 degrees forward flexion 100 degrees of AB duction external rotation to 45 degrees with arm at side and 65 degrees with arm at 90 degrees without any tension on subscapularis repair. The wound was copiously irrigated and 2 Hemovac drains were placed brought out laterally. The deltopectoral interval was repaired with iwhrjx-yi-nxzmf #1 Vicryl sutures and the subcutaneous tissues were closed into 2-0 Vicryl sutures and skin closed with saira and services were applied and a shoulder immobilizer. The patient tolerated the procedure well Ángel BIANCHI my physician anesthesia assistant assisted in the procedure with arm positioning soft tissue retraction instrument management suture management and the subcutaneous and skin closure dressings and shoulder immobilizer application and will participate in the postoperative care of the patient. I attest to the content of the Intraoperative Record and any orders documented therein. Any exceptions are noted below.
--- NOTE | 2022-10-31 17:14 | Anesthesiology Progress Note ---
Date of Service October 31, 2022 Anesthesia Post Procedure Vital Signs Vital Signs: Temp Pulse Pulse Resp BP Pulse Ox O2 Del Method 10/31/22 16:50 71 12 110/69 93 Nasal Cannula 10/31/22 17:00 67 13 102/64 93 Nasal Cannula 10/31/22 16:40 70 21 105/74 90 Nasal Cannula 10/31/22 16:31 36.2 C L 74 16 117/70 94 Oxymask 10/31/22 10:13 36.5 C 57 L 16 126/89 97 Room Air O2 Flow Rate 10/31/22 16:50 3 10/31/22 17:00 3 10/31/22 16:40 3 10/31/22 16:31 5 10/31/22 10:13 Pain Intensity Right Shoulder: Pain Intensity: 0 Transfer of Care Handoff Completed per policy Notes Mental Status: alert / awake / arousable and participated in evaluation Patient Amnestic to Procedure: Yes Nausea / Vomiting: adequately controlled Pain: adequately controlled Airway Patency, RR, SpO2: stable & adequate BP & HR: stable & adequate Hydration State: stable & adequate Anesthetic Complications: no major complications apparent and Pt Satisfied with anesthetic care
--- NOTE | 2022-10-31 17:20 | XRay Report ---
XR shoulder RT min 2V routine CLINICAL HISTORY: Post shoulder surgery COMPARISON STUDY: None. FINDINGS: Status post resurfacing of the right humeral head. The hardware appears intact. No acute fr acture or dislocation within the right shoulder. Skin saira and surgical drains are in place. IMPRESSION: Postoperative changes within the right shoulder. No acute fractures. ACT 112: Negative or not required by law. Electronically signed by: Vicente Meng M.D. 10/31/2022 5:19 PM
[2022-10-31] MEDS ORDERED: bisacodyL 10 MG SUPP PR PRN (17:48)
[2022-10-31] MEDS ORDERED: NALOXONE HCL 0.4 MG/1 ML VIAL/CARP IV PRN (17:48)
[2022-10-31] MEDS ORDERED: METOCLOPRAMIDE HCL INJ 5 MG/ML 2 ML VIAL IV PRN (17:48)
[2022-10-31] MEDS ORDERED: MAGNESIUM HYDROXIDE SUSP 30 ML UDC PO PRN (17:48)
[2022-10-31] MEDS ORDERED: oxyCODONE HCL IR 5 MG TAB (IMMEDIATE RELEASE) PO PRN (17:48)
[2022-10-31] MEDS ORDERED: SODIUM CHLORIDE 0.9% 1000ML 1,000 ML IV SCH (17:48)
[2022-10-31] MEDS ORDERED: HYDROmorphone INJ 0.5 MG/0.5 ML SYR IV PRN (17:48)
--- NOTE | 2022-10-31 18:15 | Hospitalist Consultation ---
Date of Consultation October 31, 2022 Assessment & Plan (1) S/p reverse total shoulder arthroplasty: This is a 62yo M with a PMH of CAD, HTN, HLD, KAMERON noncompliant with CPAP, hypothyroidism and other medical problems listed below who is POD#0 s/p R Total Shoulder Arthroplasty, Biceps Tenodesis, Excision Loose Bodies(Right), debridement calcium deposits glenoid labrum by Dr. Tobar. POD#0 s/p R Total Shoulder Arthroplasty, Biceps Tenodesis, Excision Loose Bodies(Right), debridement calcium deposits glenoid labrum by Dr. Tobar. Per ortho for pain control, wound care, anticoagulation and activities Monitor H&H (preop hgb 14.7, EBL 50ml), continue incentive spirometry, PT/OT when appropriate (2) HTN (hypertension): BP 112/54 post-op - takes BP in evening typically. Will hold amlodipine, losartan for tonight, continue Toprol with hold parameters (3) CAD (coronary artery disease): Continue aspirin, statin, beta cristo. Recent 2D echo on 10/20 with multivessel WMA noted- following with PS Karen, denies any CP (4) Hypothyroidism: Continue levothyroxine (5) GERD (gastroesophageal reflux disease): Continue PPI (6) KAMERON (obstructive sleep apnea): Noncompliant with CPAP DVT Ppx: SCDs PCP: [facility] Dispo: Per primary service Patient seen in collaboration with Dr. Beebe. Please see addendum. I spent a total of 50 minutes coordinating, documenting, and providing care for this patient excluding time spent in the performance of separately billed services. Supervising Physician Co-Signing Physician Notes patient is non compliant with cpap prefers to take meds in pm not inpain at this time discussed plan of care with patient and nursing reviewed pa notes and discussed with her about plan of care. History of Present Illness Reason for Consultation: post op med mgmt Attending Physician: Marquise Tobar MD History of Present Illness This is a 62yo M with a PMH of CAD, HTN, HLD, KAMERON noncompliant with CPAP, hypothyroidism and other medical problems listed below who is POD#0 s/p R Total Shoulder Arthroplasty, Biceps Tenodesis, Excision Loose Bodies(Right), debridement calcium deposits glenoid labrum by Dr. Tobar. Patient is feeling well postoperatively. Surgical site pain controlled. Follows with [facility] in [place] for primary care. Denies any fever, chills, congestion or known re cent illness. No headache, lightheadedness, chest pain, shortness of breath, nausea, vomiting, abdominal pain, dysuria, diarrhea or constipation. Has urinated postoperatively without issue. Takes all his home medications as prescribed. Follows with [facility] cardiology. Allergies Allergy/AdvReac Type Severity Reaction Status Date / Time oseltamivir [From Tamiflu] AdvReac Intermediate Dizziness Verified 10/31/22 11:24 atorvastatin AdvReac Mild MUSCLE Verified 10/11/22 15:27 ACHES lisinopril AdvReac Mild dry mouth Verified 10/11/22 15:27 rosuvastatin AdvReac Mild MUSCLE Verified 10/11/22 15:27 ACHES Home Medications Medication Instructions Recorded Confirmed Type allopurinol 300 mg tablet 300 mg PO HS 10/11/22 10/31/22 History amlodipine 5 mg tablet 5 mg PO HS 10/11/22 10/31/22 History aspirin 81 mg tablet,delayed 81 mg PO HS 10/11/22 10/31/22 History release celecoxib 200 mg capsule (Celebrex) 200 mg PO HS 10/11/22 10/31/22 History cholecalciferol (vitamin D3) 50 50 mcg PO HS 10/11/22 10/31/22 History mcg (2,000 unit) tablet (Vitamin D3) fluticasone propionate 50 1 spray intranasal HS 10/11/22 10/31/22 History mcg/actuation nasal spray,suspension levothyroxine 150 mcg tablet 150 mcg PO HS 10/11/22 10/31/22 History loratadine 10 mg capsule 10 mg PO HS 10/11/22 10/31/22 History losartan 50 mg tablet 50 mg PO HS 10/11/22 10/31/22 History metoprolol succinate 25 mg 25 mg PO HS 10/11/22 10/31/22 History tablet,extended release 24 hr omega-3 fatty acids 1,000 mg PO HS 10/11/22 10/31/22 History omeprazole 20 mg capsule,delayed 20 mg PO HS 10/11/22 10/31/22 History release Patient History Medical History Ascending aorta dilation DJD (degenerative joint disease) GERD (gastroesophageal reflux disease) controlled, stable per pt History of COVID-19 2019>denies hospitalization>resolved Hx of gout last flare several yrs ago Hx of pancreatitis last episode 2 yrs ago Hyperlipidemia Hypertension controlled, stable per pt Hypothyroidism LBBB (left bundle branch block) Nonischemic cardiomyopathy follows with [facility] cardiology Prediabetes PVCs (premature ventricular contractions) Sleep apnea cpap>"has not used for 8 months d/t shoulder pain, moving so much at night" Vertigo resolved per pt, has meclizine prn Surgical History H/O hand surgery right hand tendon repair H/O umbilical hernia repair x 2 History of anesthesia reaction post-tap headache after first hip replacement History of appendectomy History of cardiac cath x 2 (last one 3 years ago at [facility]/no stents) History of cholecystectomy History of colonoscopy History of ERCP History of revision of total hip arthroplasty right History of tooth extraction History of total hip arthroplasty right History of total knee replacement right/left Hx of vasectomy Social History Smoking Status: Never smoker Second Hand Exposure: Yes (as a child); Do You Dip or Chew Tobacco: No (quit 10 years ago); Hx Alcohol Use: Yes Preferred Language: Australian Sample Cutter Required: No Beliefs That Will Affect Care: None Current Living Situation: Spouse Feels Safe at Home: Yes Safety Concerns: Feels Safe At This Time Assistive Devices: CPAP and Glasses Review of Systems Review of Systems: At least ten systems reviewed and negative except as noted in the HPI. Physical Exam Physical Exam: General Appearance: WD/WN, vitals as above, NAD, sitting up in bed, pleasant, conversing easily Head: normocephalic, atraumatic Eyes: normal inspection, PERRL ENT: external ear and nose normal, oropharynx normal Neck: normal visual inspection Respiratory: normal respiratory effort, lungs clear to auscultation Cardiovascular: regular rate, rhythm, no murmur appreciated, normal peripheral pulses, no BLE edema Abdomen/GI: normal bowel sounds, soft, nontender Extremities/Musculoskeletal: + R shoulder dressing c/d/i, immobilized with ice with 2 hemovacs, no cyanosis or clubbing, extremities motor strength 5/5 Neurologic: PERRL, CN's II-XI intact bilaterally and moves all extremities Psychiatric: A+Ox3, euthymic affect Skin: no rashes, normal color, warm/dry Results & Data Results & Data Vital Signs (Past 12 Hours) Vital Signs Temp Pulse Pulse Resp BP Pulse Ox O2 Del Method 10/31/22 17:48 Nasal Cannula 10/31/22 17:45 36.4 C L 77 18 101/67 92 Nasal Cannula 10/31/22 16:50 71 12 110/69 93 Nasal Cannula 10/31/22 17:20 36.4 C L 63 13 107/69 94 Nasal Cannula 10/31/22 17:10 36.2 C L 68 16 104/69 94 Nasal Cannula 10/31/22 17:00 67 13 102/64 93 Nasal Cannula 10/31/22 16:40 70 21 105/74 90 Nasal Cannula 10/31/22 16:31 36.2 C L 74 16 117/70 94 Oxymask 10/31/22 10:13 36.5 C 57 L 16 126/89 97 Room Air O2 Flow Rate 10/31/22 17:48 2 10/31/22 17:45 2 10/31/22 16:50 3 10/31/22 17:20 3 10/31/22 17:10 3 10/31/22 17:00 3 10/31/22 16:40 3 10/31/22 16:31 5 10/31/22 10:13
[2022-10-31] MEDS ORDERED: FLUTICASONE PROPIONATE NA SPR 16 GM BTL SCH (21:00)
[2022-10-31] MEDS ORDERED: LEVOTHYROXINE SODIUM 150 MCG TABLET PO SCH (21:00)
[2022-10-31] MEDS ORDERED: allopurinoL 300 MG TAB PO SCH (21:00)
[2022-10-31] MEDS ORDERED: PANTOprazole 40 MG TAB PO SCH (21:00)
[2022-10-31] MEDS ORDERED: ASPIRIN 81 MG ECTAB PO SCH (21:00)
[2022-10-31] MEDS ORDERED: SENNA 8.6 MG TAB PO SCH (21:00)
[2022-10-31] MEDS ORDERED: LORATADINE 10 MG TAB PO SCH (21:00)
[2022-10-31] MEDS ORDERED: CHOLECALCIFEROL 1,000 UNITS 25 MCG TAB PO SCH (21:00)
[2022-10-31] MEDS: ceFAZolin 2000MG 2,000 MG/15 ML SYR IV SCH (21:13)
[2022-10-31] MEDS: DOCUSATE SODIUM 100 MG CAP PO SCH (21:15)
[2022-10-31] MEDS: ACETAMINOPHEN 500 MG TAB PO SCH (21:15)
[2022-11-01] MEDS: ceFAZolin 2000MG 2,000 MG/15 ML SYR IV SCH (04:10)
[2022-11-01] MEDS: ACETAMINOPHEN 500 MG TAB PO SCH (06:04)
--- NOTE | 2022-11-01 07:26 | Orthopedic Progress Note ---
Date of Service November 01, 2022 Assessment & Plan (1) Primary osteoarthritis, right shoulder: Plan: POD#1 right anatomic total shoulder arthroplasty -PT/OT -DVT prophylaxis-SCDs, ASA 81mg daily -Pain management as written -AM labs: hgb 13 from 14.7 preop, acute blood loss anemia due to surgical loss vs dilutional -D/c planning-plan on discharge home today. Patient will attend outpatient PT. Admission and Anticipated Discharge Date Admission Date: October 31, 2022 Subjective Patient is POD#1 right TSA. Doing well this morning. No current pain. No complaints. Denies chest pain, sob, dizziness, headache, n/v/d. Review of Systems Review of Systems: All systems reviewed & are unremarkable except as noted in Subjective Physical Exam Physical Exam: right shoulder: Sling is in place. 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 Distally n/v status and sensation grossly intact. Constitutional: WD/WN, vitals as above Results & Data Vital Signs (Past 12 Hours) Vital Signs Temp Pulse Resp BP Pulse Ox O2 Del Method O2 Flow Rate 11/01/22 04:29 36.9 C 61 18 104/68 96 Nasal Cannula 10/31/22 22:52 36.8 C 59 L 18 113/70 93 Room Air 10/31/22 19:30 Nasal Cannula 2 10/31/22 19:45 36.4 C L 59 L 20 105/71 95 Nasal Cannula 2 Laboratory Results Lab Results 10/31/22 11/01/22 11/01/22 Range/Units 10:00 06:26 06:26 WBC 10.52 (4.8-10.8) K/ul RBC 4.17 L (4.70-6.10) M/uL Hgb 13.0 L (14.0-18.0) g/dl Hct 37.0 L (42.0-52.0) % MCV 88.7 (80.0-100.0) fL MCH 31.2 (25.0-34.0) pg MCHC 35.1 (32.0-36.0) g/dL RDW Std Deviation 40.1 (36.4-46.3) fL RDW Coeff of [place]air[place] 12.4 (11.5-14.5) % Plt Count 184 (130-400) K/uL MPV 9.3 L (9.4-12.4) fL Immature Gran % (Auto) 0.4 % Neut % (Auto) 88.0 % Lymph % (Auto) 5.7 % [place] % (Auto) 5.8 % Eos % (Auto) 0.0 % Baso % (Auto) 0.1 % Neut # (Auto) 9.26 H (1.40-6.50) K/uL Lymph # (Auto) 0.60 L (1.2-3.4) K/uL [place] # (Auto) 0.61 H (0.11-0.59) K/uL Eos # (Auto) 0.00 (0-0.50) K/uL Baso # (Auto) 0.01 (0-0.2) K/uL Immature Gran # (Auto) 0.04 (0.01-0.20) K/uL Sodium 136 (136-145) mmol/L Potassium 4.5 (3.5-5.1) mmol/L Chloride 104 (98-107) mmol/L Carbon Dioxide 22 (21-32) mmol/L Anion Gap 10 (3-11) BUN 24 H (6-23) mg/dl Creatinine 1.03 (0.6-1.4) mg/dl Est Cr Clr Drug Dosing 90.2 ml/min Est GFR ( Amer) 88.6 ml/min Est GFR (Non-Af Amer) 76.4 ml/min BUN/Creatinine Ratio 23.3 H (10-20) Glucose 134 H (70-99(Fasting)) mg/dl Calcium 9.1 (8.6-10.3) mg/dl SARS-CoV-2, RNA, NAAT NEGATIVE (NEGATIVE)
[2022-11-01 07:38] LABS: Basophils # (auto) 0.01 K/uL (0-0.2); Basophils % (auto) 0.1 %; Immature Granulocytes # (auto) 0.04 K/uL (0.01-0.20); Immature Granulocytes % (auto) 0.4 %; Lymphocytes % (auto) 5.7 %; Mean Corpuscular Hemoglobin 31.2 pg (25.0-34.0); Mean Corpuscular Hgb Conc 35.1 g/dL (32.0-36.0); Mean Corpuscular Volume 88.7 fL (80.0-100.0); Mean Platelet Volume 9.3 fL (9.4-12.4); Monocytes # (auto) 0.61 K/uL (0.11-0.59); Monocytes % (auto) 5.8 %; Neutrophils # (auto) 9.26 K/uL (1.40-6.50); Platelet Count 184 K/uL (130-400); RDW Coefficient of Variation 12.4 % (11.5-14.5); RDW Standard Deviation 40.1 fL (36.4-46.3); Red Blood Count 4.17 M/uL (4.70-6.10); White Blood Count 10.52 K/ul (4.8-10.8)
[2022-11-01 08:10] LABS: BUN Creatinine Ratio 23.3 (10-20); Calcium 9.1 mg/dl (8.6-10.3); Creatinine Clr Calc Pharmacy 90.2 ml/min; Est GFR (African American) 88.6 ml/min; Est GFR (Non-African American) 76.4 ml/min; Potassium 4.5 mmol/L (3.5-5.1)
[2022-11-01] MEDS: DOCUSATE SODIUM 100 MG CAP PO SCH (08:41)
[2022-11-01] MEDS ORDERED: MULTIVITAMIN TAB PO SCH (09:00)
--- NOTE | 2022-11-01 10:19 | Hospitalist Progress Note ---
Date of Service November 01, 2022 Assessment & Plan (1) S/p reverse total shoulder arthroplasty: Plan: This is a 62yo M with a PMH of CAD, HTN, HLD, KAMERON noncompliant with CPAP, hypothyroidism and other medical problems listed below who is POD#0 s/p R Total Shoulder Arthroplasty, Biceps Tenodesis, Excision Loose Bodies(Right), debridement calcium deposits glenoid labrum by Dr. Tobar. POD#1 s/p R Total Shoulder Arthroplasty, Biceps Tenodesis, Excision Loose Devendra s(Right), debridement calcium deposits glenoid labrum by Dr. Tobar. Per ortho for pain control, wound care, anticoagulation and activities Monitor H&H (preop hgb 14.7, EBL 50ml), continue incentive spirometry, PT/OT when appropriate post op hgb 13.0, stable, likely dilutional (2) HTN (hypertension): Plan: BP 128/75 post-op - takes BP in evening typically. Resume BP meds at discharge, amlodipine, losartan, Toprol (3) CAD (coronary artery disease): Plan: Continue aspirin, statin, beta cristo. Recent 2D echo on 10/20 with multivessel WMA noted- following with PS Karen, denies any CP (4) Hypothyroidism: Plan: Continue levothyroxine (5) GERD (gastroesophageal reflux disease): Plan: Continue PPI (6) KAMERON (obstructive sleep apnea): Plan: Noncompliant with CPAP DVT Ppx: SCDs PCP: Yahir Dispo: Per primary service Thank you for this consultation. We will follow the patient with you during their hospital stay. You can reach a member of the [facility] Hospitalist Team 07/11 via hospitalist role on tiger text. Pt was seen and collaboration with Dr. Mccullough, please see addendum Admission and Anticipated Discharge Date Admission Date: October 31, 2022 Supervising Physician Co-Signing Physician Notes Patient seen and examined at bedside as a follow-up of medical management for status post reverse total shoulder arthroplasty x right. Patient was sitting up in chair, on room air, NAD, reports pain under control. Patient hemodynamically stable. On exam, patient on room air, right shoulder in immobilizer. Rest of the examination as above. I have seen and examined the patient and have discussed the case with the provider above. I agree with the assessment and plan as stated. Subjective Pt is doing well post operatively. Denies any shoulder pain. Didn't sleep well last night. Appetite is good and passing flatus. Denies f/c/s, chest pain, sob, n/v/d, abd pain. Has been out of bed a few times to go to bathroom. Slight numbness, tingling to R fingers 1,2 Review of Systems Review of Systems: All systems reviewed & are unremarkable except as noted in HPI & below Physical Exam Physical Exam: Gen: WD/WN, NAD, A&O x3 HEENT: Normocephalic, atraumatic, conjunctivae moist, sclerae anicteric, mucous membranes moist. Lung: Clear to Auscultation bilaterally, no wheezes/rales/rhonchi Heart: Regular rate, regular rhythm, no murmurs, rubs, or gallops Abdomen: protuberant abd, Soft, NT, ND +BS x 4 Extremities: No edema, R shoulder in immobilizer, NVI distally, dressing CDI Skin: Warm, no rash, negative turgor. Results & Data Results & Data Vital Signs (Past 12 Hours) Vital Signs Temp Pulse Resp BP Pulse Ox O2 Del Method 11/01/22 07:36 36.5 C 57 L 16 128/75 93 Room Air 11/01/22 04:29 36.9 C 61 18 104/68 96 Nasal Cannula 10/31/22 22:52 36.8 C 59 L 18 113/70 93 Room Air
--- NOTE | 2022-11-01 11:33 | Discharge Summary ---
Date of Service November 01, 2022 Admission HPI Per Admitting Provider 62-year-old male with past medical history significant for hypertension, high cholesterol, KAMERON, hypothyroidism, PVCs who presents with ongoing right shoulder pain. Pain is interfering with his daily activities. He has failed conservative measures. He would like to proceed with surgical intervention. Patient denies headaches, sweats, fevers, chills, double vision, blurred vision, cough, sore throat, dysphagia, chest pain, sob, wheezing, n/v/d/c, numbness, tingling, fatigue, urinary symptoms, mood disorders. ROS positive for right shoulder pain and stiffness. Admission Exam Per Admitting Provider Constitutional: well developed and well nourished; no acute distress Eyes: PERRL, conjunctivae normal, anicteric sclerae ENMT: external ear and nose normal, oropharynx normal Neck: trachea midline, no thyromegaly Respiratory: normal respiratory effort, lungs clear to auscultation Cardiovascular: RRR, no murmur, no edema Musculoskeletal: Right shoulder: Crepitation with range of motion. Diffuse tenderness. Glenohumeral joint [id number] crepitation with range of motion. He has painful range of motion. External rotation is 0 degrees, internal rotation to 45 degrees, forward flexion to 150 degrees, abduction 120 degrees. Normal strength. Skin: no rashes, warm and dry Neurologic: patellar DTR's 2+ bilat, sensation intact Psychiatric: A+Ox3, euthymic affect Principal Diagnosis Right shoulder osteoarthritis Discharge Exam right shoulder: Sling is in place. 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 Distally n/v status and sensation grossly intact. Discharge Data Allergies Allergy/AdvReac Type Severity Reaction Status Date / Time oseltamivir [From Tamiflu] AdvReac Intermediate Dizziness Verified 10/31/22 11:24 atorvastatin AdvReac Mild MUSCLE Verified 10/11/22 15:27 ACHES lisinopril AdvReac Mild dry mouth Verified 10/11/22 15:27 rosuvastatin AdvReac Mild MUSCLE Verified 10/11/22 15:27 ACHES Consultations 10/27/22 12:47 Consult Hospitalist Routine Procedures Performed Operation Date: 10/31/22 11:55 Actual Procedures p Right Total Shoulder Arthroplasty, Biceps Tenodesis, Excision Loose Bodies(Right) - Marquise Tobar MD Ordered Studies 10/31/22 05:00 US - OR guided needle placemen Routine Hospital Course (1) Primary osteoarthritis, right shoulder: POD#1 right anatomic total shoulder arthroplasty -PT/OT -DVT prophylaxis-SCDs, ASA 81mg daily -Pain management as written -AM labs: hgb 13 from 14.7 preop, acute blood loss anemia due to surgical loss vs dilutional -D/c planning-plan on discharge home today. Patient will attend outpatient PT. Lab Results 10/31/22 11/01/22 11/01/22 Range/Units 10:00 06:26 06:26 WBC 10.52 (4.8-10.8) K/ul RBC 4.17 L (4.70-6.10) M/uL Hgb 13.0 L (14.0-18.0) g/dl Hct 37.0 L (42.0-52.0) % MCV 88.7 (80.0-100.0) fL MCH 31.2 (25.0-34.0) pg MCHC 35.1 (32.0-36.0) g/dL RDW Std Deviation 40.1 (36.4-46.3) fL RDW Coeff of Bairon 12.4 (11.5-14.5) % Plt Count 184 (130-400) K/uL MPV 9.3 L (9.4-12.4) fL Immature Gran % (Auto) 0.4 % Neut % (Auto) 88.0 % Lymph % (Auto) 5.7 % [place] % (Auto) 5.8 % Eos % (Auto) 0.0 % Baso % (Auto) 0.1 % Neut # (Auto) 9.26 H (1.40-6.50) K/uL Lymph # (Auto) 0.60 L (1.2-3.4) K/uL [place] # (Auto) 0.61 H (0.11-0.59) K/uL Eos # (Auto) 0.00 (0-0.50) K/uL Baso # (Auto) 0.01 (0-0.2) K/uL Immature Gran # (Auto) 0.04 (0.01-0.20) K/uL Sodium 136 (136-145) mmol/L Potassium 4.5 (3.5-5.1) mmol/L Chloride 104 (98-107) mmol/L Carbon Dioxide 22 (21-32) mmol/L Anion Gap 10 (3-11) BUN 24 H (6-23) mg/dl Creatinine 1.03 (0.6-1.4) mg/dl Est Cr Clr Drug Dosing 90.2 ml/min Est GFR ( Amer) 88.6 ml/min Est GFR (Non-Af Amer) 76.4 ml/min BUN/Creatinine Ratio 23.3 H (10-20) Glucose 134 H (70-99(Fasting)) mg/dl Calcium 9.1 (8.6-10.3) mg/dl SARS-CoV-2, RNA, NAAT NEGATIVE (NEGATIVE) Total Time Total Time Spent Total Time Spent (In Minutes): 20 Discharge Plan Discharge Items Patient Disposition: Home - Self-Care Reason For Visit: POST OP Discharge Diagnosis: Right shoulder osteoarthritis Activity: Per Instructions section Non-emergency contact: Surgeon Call non-emergency contact if: you have any medication questions, your pain is not controlled, your pain is concerning for you, you have a fever, your temperature is above 101, your wound has increased redness and your wound has increased drainage Follow-up/Referrals: Marisa Sinclair, [Primary Care Provider] - Diet: Regular Addtl Attending Provider Instructions: ACTIVITY RECOMMENDATIONS: SELF CARE INSTRUCTIONS AFTER TOTAL SHOULDER ARTHROPLASTY A. You may do daily exercises as taught in physical therapy while in hospital. No lifting with the operative arm. Please schedule your outpatient physical therapy appointment to begin within 2-3 days after leaving the hospital. Specific restrictions will be written on your physical therapy prescription that is provided to you. B. You are to wear your sling/immobilizer at all times EXCEPT when performing your daily exercises, participating in physical therapy and for hygiene purposes. C. You may perform dry, daily dressing changes. Please keep your incision covered. You may shower 48 hours after surgery. Do not apply soap or any ointment/lotions directly over incision. Do not soak incision in bath tub/swimming pool. D. You may use ice as needed to operative shoulder. SPECIAL CARE INSTRUCTIONS: MEDICATION INSTRUCTIONS: *It is recommended you take Aspirin 81mg daily for four weeks post-op. VERY IMPORTANT TO READ AND REVIEW A. There are a few signs you need to watch for after you are home. Call [facility] at [phone] if you experience any of the followin. Increased severe shoulder pain. Some pain is expected especially when you exercise. 2. Increased swelling in you shoulder or arm; pain or swelling in either upper extremity. 3. Any fluid drainage from the incision. 4. Shortness of breath or chest pain. B. Please call [facility] at [phone] if you have any questions or concerns about your operation or recovery. C. Call your physician if: 1. Temperature is greater than 101 degrees (F). 2. Pain is not relieved by prescribed pain medications. 3. Increase drainage or redness from incision. 4. Unanswered questions or concerns. FOLLOW UP VISIT: Please call [facility] at [phone] to schedule a follow up appointment with Dr. Tobar or his PA in 12-14 days from your surgery date. Stand-Alone Forms: My [facility] [employer] [place], Pain - Opioid Pain Management, Smoking Cessation Medications and DC Order Prescriptions: New acetaminophen [Tylenol Extra Strength] 500 mg Tablet 1,000 mg PO Q8 Qty: 60 0RF oxycodone 5 mg Tablet 5 - 10 mg PO .Q4h-6h MDD 6 PRN (Reason: pain) Qty: 30 0RF Rx Instructions: Ongoing therapy, Dr. Tobar supervising Continued losartan 50 mg Tablet 50 mg PO HS amlodipine 5 mg Tablet 5 mg PO HS aspirin 81 mg Tablet,Delayed Release (Dr/Ec) 81 mg PO HS levothyroxine 150 mcg Tablet 150 mcg PO HS omeprazole 20 mg Capsule,Delayed Release(Dr/Ec) 20 mg PO HS allopurinol 300 mg Tablet 300 mg PO HS metoprolol succinate 25 mg Tablet Extended Release 24 Hr 25 mg PO HS fluticasone propionate 50 mcg/actuation [place],Suspension 1 spray INTRANASAL HS Rx Instructions: administer into each nostril omega-3 fatty acids Capsule 1,000 mg PO HS cholecalciferol (vitamin D3) [Vitamin D3] 50 mcg (2,000 unit) Tablet 50 mcg PO HS loratadine 10 mg Capsule 10 mg PO HS Discontinued celecoxib [Celebrex] 200 mg Capsule 200 mg PO HS Discharge Orders: Discharge Order (Routine); Ordered 11/01/22 Ordered By: Ángel Adam/Other Patient Handouts: Shoulder Arthroscopy Dc Admission Data Admit Date/Time: 10/31/22 16:46 Attending Provider: Marquise Tobar Admit Provider: Marquise Tobar Primary Care Provider: Marisa Sinclair Other Providers: Omar Martinez ; Phli Mccullough ; Harika Edouard Other Interventions: Discharge Summary Assessment (RN) Last Done: 11/01/22 08:59
[2022-11-01] MEDS ORDERED: amLODIPine BESYLATE 5 MG TAB PO SCH ×2 (21:00)
[2022-11-01] MEDS ORDERED: OMEGA-3 (PURIFIED FISH OIL) 1 GM CAP PO SCH (21:00)
[2022-11-01] MEDS ORDERED: METOPROLOL SUCC 25MG EXT REL TAB PO SCH (21:00)
[2022-11-01] MEDS ORDERED: LOSARTAN POTASSIUM 50 MG TAB PO SCH (21:00)
== END 2022-11-01 11:11 | disposition home or self-care (01) ==
LOC: 3W 09:49 → ASU 09:49

== ENCOUNTER 2023-03-29 08:29 | Observation (INO) ==
--- NOTE | 2023-03-20 14:55 | Anesthesiology Consultation ---
Date of Service March 20, 2023 Assessment & Plan (1) Encounter for pre-operative examination: Plan Outpatient joint assessment: Patient is currently scheduled for inpatient pathway. If re-evaluated and patient/surgeon requests outpatient pathway, patient is not recommended candidate for outpatient joint program from anesthesia standpoint. - Per beauty therapist on 03/20/2023: No known infectious disease contacts, current infectious disease symptoms in past 10 days or COVID positive test result in the past 30 days. Chart Review Chart Review: Acceptable Risk for Surgery and Patient NOT seen in Pre Admission Testing History Surgery Operation Date: 03/29/23 11:45 Proposed Procedures p Left Total Shoulder Arthroplasty - Marquise Tobar MD Height/Weight Height: 5 ft 10 in Weight: 111.13 kg Allergies Allergy/AdvReac Type Severity Reaction Status Date / Time oseltamivir [From Tamiflu] AdvReac Intermediate Dizziness Verified 03/20/23 14:05 atorvastatin AdvReac Mild MUSCLE Verified 03/20/23 14:05 ACHES lisinopril AdvReac Mild dry mouth Verified 03/20/23 14:05 rosuvastatin AdvReac Mild MUSCLE Verified 03/20/23 14:05 ACHES Medications Home Medications Medication Instructions Recorded Confirmed Last Taken allopurinol 300 mg tablet 300 mg PO HS 10/11/22 03/20/23 10/30/22 23:30 aspirin 81 mg tablet,delayed 81 mg PO HS 10/11/22 03/20/23 10/28/22 release cholecalciferol (vitamin D3) 50 50 mcg PO HS 10/11/22 03/20/23 10/28/22 mcg (2,000 unit) tablet (Vitamin D3) fluticasone propionate 50 1 spray intranasal 10/11/22 03/20/23 10/30/22 23:30 mcg/actuation nasal spray,suspension levothyroxine 150 mcg tablet 150 mcg PO HS 10/11/22 03/20/23 10/30/22 23:30 loratadine 10 mg capsule 10 mg PO HS 10/11/22 03/20/23 10/30/22 23:00 losartan 50 mg tablet 50 mg PO HS 10/11/22 03/20/23 10/30/22 23:30 metoprolol succinate 25 mg 25 mg PO HS 10/11/22 03/20/23 10/30/22 23:30 tablet,extended release 24 hr omega-3 fatty acids 1,000 mg PO HS 10/11/22 03/20/23 10/28/22 omeprazole 20 mg capsule,delayed 20 mg PO HS 10/11/22 03/20/23 10/30/22 23:30 release acetaminophen 500 mg tablet 1,000 mg (2 x 500 mg) PO Q8 #60 11/01/22 03/20/23 Unknown (Tylenol Extra Strength) tabs oxycodone 5 mg tablet 5 - 10 mg (1 - 2 x 5 mg) PO 11/01/22 03/20/23 Unknown .Q4h-6h PRN pain #30 tabs Past Medical History Medical History (Updated 03/20/23 @ 14:52 by Tangela Lynch PA-C) PVCs (premature ventricular contractions) Prediabetes LBBB (left bundle branch block) Ascending aorta dilation PS cardio monitoring per records Vertigo resolved per pt, has meclizine prn Nonischemic cardiomyopathy follows with PSYCHIATRIC cardiology DJD (degenerative joint disease) Hx of gout last flare several yrs ago GERD (gastroesophageal reflux disease) controlled, stable per pt Hypothyroidism Hx of pancreatitis last episode 2 yrs ago Hypertension controlled, stable per pt Hyperlipidemia History of COVID-19 2019>denies hospitalization>resolved Sleep apnea cpap>"has not used for several months d/t shoulder pain, moving so much at night" Past Surgical History Surgical History History of total shoulder replacement right History of anesthesia reaction post-tap headache after first hip replacement H/O hand surgery right hand tendon repair History of revision of total hip arthroplasty right History of total hip arthroplasty right History of total knee replacement right/left Hx of vasectomy History of ERCP History of colonoscopy H/O umbilical hernia repair x 2 History of appendectomy History of cholecystectomy History of tooth extraction History of cardiac cath x 2 (last one 2019) Social History Smoking Status: Never smoker tobacco type: smokeless tobacco Do You Dip or Chew Tobacco: No Hx Alcohol Use: Yes alcohol intake frequency: holidays/special occasions only Hx Substance Use: No substance use type: does not use Lab Results Anesthesia Preop Results Results Anesthesia Widget: WBC 5.24 K/ul (4.8-10.8) 02/20/23 Hgb 14.5 g/dl (14.0-18.0) 02/20/23 Hct 42.8 % (42.0-52.0) 02/20/23 Plt 203 K/uL (130-400) 02/20/23 Na 137 mmol/L (136-145) 02/20/23 K 4.0 mmol/L (3.5-5.1) 02/20/23 Cl 105 mmol/L (98-107) 02/20/23 CO2 25 mmol/L (21-32) 02/20/23 BUN 19 mg/dl (6-23) 02/20/23 Creat 1.06 mg/dl (0.6-1.4) 02/20/23 Glucose Level 94 mg/dl (70-99(Fasting)) 02/20/23 PT 10.9 Seconds (9.0-12.0) 02/20/23 PTT 30.4 Seconds (21.0-31.0) 02/20/23 INR 1.0 (0.9-1.1) 02/20/23 Urine Color Yellow 02/20/23 Urine Appearance Clear (Clear) 02/20/23 Urine pH 6.0 (4.5-7.5) 02/20/23 Urine Specific [place] 1.009 (1.000-1.030) 02/20/23 Urine Protein Negative (Negative) 02/20/23 Urine Glucose (UA) Negative (Negative) 02/20/23 Urine Ketones Negative (Negative) 02/20/23 Urine Blood Negative (Negative) 02/20/23 Urine Nitrite Negative (Negative) 02/20/23 Urine Bilirubin Negative (Negative) 02/20/23 Urine Urobilinogen Negative (Negative) 02/20/23 Urine Leukocyte Esterase Negative (Negative) 02/20/23 Blood Type O Positive 02/20/23 Antibody Screen NEGATIVE 02/20/23 Testing Electrocardiogram Date: 10/14/22 Sinus bradycardia with 1st degree AV block, rate 56 bpm Left sided IVCD Left axis deviation Chest X-Ray Date: 10/21/22 No acute cardiopulmonary findings. Echocardiogram Date: 10/20/22 EF 55% Severe hypokinesis of basal to mid inferolateral and basal to mid inferior and inferoseptal smith Mid to distal anterolateral and distal anterior smith are hypokinetiec Asymmetric septal hypertrophy Grade I diastolic dysfunction Dilated RV Mildly dilated LA Dilated RA Dilated aortic root (4.3 cm), ascending aorta (4.2 cm) and aortic arch (3.9 cm) Sclerotic, tricuspid aortic valve with trace to mild insufficiency Trace to mild mitral regurgitation Trace to mild tricuspid regurgitation Normal estimated pulmonary artery pressures, estimated PASP 28 mmHg Stress Test Date: 02/20/20 Pharmacologic Medium to large in size, mild intensity, partially reversible MPI defect of inferior and inferolateral myocardium EF 38% Cardiac Catheterization Date: 03/02/20 Left main: no angiographically evident disease LAD: no more than mild luminal irregularities in the LAD and its branches Cx: no evident significant disease RCA: no more than mild luminal irregularities No angiographically significant stenosis Coronary artery ectasia Mildly to moderately reduced LVEF Other Testing Carotid doppler 02/08/22 No hemodynamically significant stenosis seen within either carotid bifurcation region or either proximal internal carotid artery
--- NOTE | 2023-03-25 08:26 | History & Physical Report ---
Date of Service March 25, 2023 Assessment & Plan (1) Primary osteoarthritis, left shoulder: Plan: Treatment options discussed with the patient and they wish to proceed with surgical management. Risks, benefits and alternatives to surgery including but not limited to infection, DVT, pain, stiffness, need for revision surgery, damage to blood vessels, damage to nerves, PE, , were discussed with the patient and they wish to proceed. Plan on left total shoulder arthroplasty scheduled for [facility] on March [address] Tobar. All questions answered. Patient will follow-up postoperatively. History of Present Illness Chief Complaint: Left shoulder pain Primary Care Provider: Marisa Sinclair DO 62-year-old male with past medical history significant for hypertension, high cholesterol, KAMERON, hypothyroidism, PVCs, previous right shoulder replacement who presents with ongoing left shoulder pain. Pain is interfering with his daily activities. He has failed conservative measures and would like to proceed with surgical management. Patient denies headaches, sweats, fevers, chills, double vision, blurred vision, cough, sore throat, dysphagia, chest pain, sob, wheezing, n/v/d/c, numbness, tingling, fatigue, urinary symptoms, mood disorders. ROS positive for left shoulder pain and stiffness. Allergies Allergy/AdvReac Type Severity Reaction Status Date / Time oseltamivir [From Tamiflu] AdvReac Intermediate Dizziness Verified 03/20/23 14:05 atorvastatin AdvReac Mild MUSCLE Verified 03/20/23 14:05 ACHES lisinopril AdvReac Mild dry mouth Verified 03/20/23 14:05 rosuvastatin AdvReac Mild MUSCLE Verified 03/20/23 14:05 ACHES Home Medications Medication Instructions Recorded Confirmed Type allopurinol 300 mg tablet 300 mg PO HS 10/11/22 03/20/23 History aspirin 81 mg tablet,delayed 81 mg PO HS 10/11/22 03/20/23 History release cholecalciferol (vitamin D3) 50 50 mcg PO HS 10/11/22 03/20/23 History mcg (2,000 unit) tablet (Vitamin D3) fluticasone propionate 50 1 spray intranasal HS 10/11/22 03/20/23 History mcg/actuation nasal spray,suspension levothyroxine 150 mcg tablet 150 mcg PO HS 10/11/22 03/20/23 History loratadine 10 mg capsule 10 mg PO HS 10/11/22 03/20/23 History losartan 50 mg tablet 50 mg PO HS 10/11/22 03/20/23 History metoprolol succinate 25 mg 25 mg PO HS 10/11/22 03/20/23 History tablet,extended release 24 hr omega-3 fatty acids 1,000 mg PO HS 10/11/22 03/20/23 History omeprazole 20 mg capsule,delayed 20 mg PO HS 10/11/22 03/20/23 History release acetaminophen 500 mg tablet 1,000 mg (2 x 500 mg) PO Q8 #60 11/01/22 03/20/23 Rx (Tylenol Extra Strength) tabs oxycodone 5 mg tablet 5 - 10 mg (1 - 2 x 5 mg) PO 11/01/22 03/20/23 Rx .Q4h-6h PRN pain #30 tabs Past Med/Surg History Medical History (Updated 03/25/23 @ 08:25 by Ángel Deutsch PA-C) PVCs (premature ventricular contractions) Prediabetes LBBB (left bundle branch block) Ascending aorta dilation [facility] cardio monitoring per records Vertigo resolved per pt, has meclizine prn Nonischemic cardiomyopathy follows with [facility] cardiology DJD (degenerative joint disease) Hx of gout last flare several yrs ago GERD (gastroesophageal reflux disease) controlled, stable per pt Hypothyroidism Hx of pancreatitis last episode 2 yrs ago Hypertension controlled, stable per pt Hyperlipidemia History of COVID-19 2019>denies hospitalization>resolved Sleep apnea cpap>"has not used for several months d/t shoulder pain, moving so much at night" Surgical History History of total shoulder replacement right History of anesthesia reaction post-tap headache after first hip replacement H/O hand surgery right hand tendon repair History of revision of total hip arthroplasty right History of total hip arthroplasty right History of total knee replacement right/left Hx of vasectomy History of ERCP History of colonoscopy H/O umbilical hernia repair x 2 History of appendectomy History of cholecystectomy History of tooth extraction History of cardiac cath x 2 (last one 2019) Social History Smoking Status: Never smoker Second Hand Exposure: No; Do You Dip or Chew Tobacco: No; Tobacco Cessation Education Requested by Patient: No Hx Alcohol Use: Yes Hx Substance Use: No Preferred Language: Greek Communication Ability: Effective Auricular Therapist Required: No Beliefs That Will Affect Care: None Current Living Situation: Spouse Other Information That Helps Us Care for You: No Feels Safe at Home: Yes Safety Concerns: Feels Safe At This Time Assistive Devices: CPAP and Glasses Review of Systems All systems reviewed & are unremarkable except as noted in HPI & below Physical Exam Constitutional: well developed and well nourished; no acute distress Eyes: PERRL, conjunctivae normal, anicteric sclerae ENMT: external ear and nose normal, oropharynx normal Neck: trachea midline, no thyromegaly Respiratory: normal respiratory effort, lungs clear to auscultation Cardiovascular: RRR, no murmur, no edema Musculoskeletal: Left shoulder: Crepitus with range of motion. Diffuse tenderness. Active painful range of motion. Active forward flexion to 150 degrees, abduction to 40 degrees, external rotation to 30 degrees. Strength is normal. Skin: no rashes, warm and dry Neurologic: patellar DTR's 2+ bilat, sensation intact Psychiatric: A+Ox3, euthymic affect Results & Data Diagnostic Findings Left shoulder radiographs demonstrate [id number] glenohumeral joint with type a wear pattern. Maintained subacromial space with no proximal migration. Moderate AC joint arthritis and type II-III acromion.
[~2023-03-29 08:29] MED LIST changes: +LIDOCAINE 2% 2 ML VIAL/AMP(20MG/ML) INFIL ONE; +MIDAZOLAM HCL 1 MG/ML 2ML VIAL ONE; +ONDANSETRON INJ 2 MG/ML 2 ML VIAL ONE; +PROPOFOL IV EMULSION 10 MG/ML 20 ML VIAL IV ONE; +ROCURONIUM BROMIDE 10 MG/ML 5 ML VIAL IV ONE; +fentaNYL citrate PF 100 MCG/2 ML VIAL ONE
--- NOTE | 2023-03-29 09:02 | History & Physical Bridge Note ---
Date of Service March 29, 2023 History & Physical Bridge Note I have examined the patient, reviewed the History & Physical and in the interval since the performance of the History & Physical I have noted the following changes of clinical significance: no changes noted
[2023-03-29] MEDS ORDERED: LABETALOL HCL IV 5 MG/ML 20ML IV PRN (09:29)
[2023-03-29] MEDS ORDERED: ATROPINE SULFATE 0.1 MG/ML 10ML SYR IV PRN (09:29)
[2023-03-29] MEDS ORDERED: PROMETHAZINE HCL 6.25 MG in SODIUM CHLORIDE 0.9% 50 ML IV PRN (09:29)
[2023-03-29] MEDS ORDERED: fentaNYL citrate PF 100 MCG/2 ML VIAL IV PRN (09:29)
[2023-03-29] MEDS ORDERED: KETOROLAC 30 MG/ML VIAL IV PRN (09:29)
[2023-03-29] MEDS ORDERED: ePHEDrine sulfate 50 MG/5 ML SYR ONE (10:48)
[2023-03-29] MEDS ORDERED: PHENYLEPHRINE HCL 10 MG/ML VIAL ONE (10:48)
[2023-03-29] MEDS ORDERED: ROCURONIUM BROMIDE 10 MG/ML 5 ML VIAL IV ONE ×2 (10:48→11:55)
--- OUTSIDE RECORDS SUMMARY | 2023-03-29 12:19 | External Medical Summary | Summary of Care ---
Author Name Unknown Organization [facility] Address [address] [place] [address] Phone [phone] Care Team Providers Care Flat Knitter Helper Name Role Phone Franki Douglass PA-C Primary Care Provide r Encounter Details Date Type Department Care Team (Late st Contact Info) Description 03/14/2023 Orders Only Family Practice [facility] [place] [address] [facility] [place] [address] Franki Douglass PA-C [address] [facility] [place] [address] Allergies Active Allergy Reactions Criticality Noted Date Comments Rosuvastatin Calcium Muscle pain Medium 10/31/2016 Atorvastatin Muscle pain Medium 10/31/2016 Lisinopril Other (Please comment) 03/15/2011 DRY MOUTH Oseltamivir Neuro complications (Please comment) 05/03/2019 dizziness documented as of this encounter (statuses as of 03/14/2023) Medications Medication Sig Dispensed Refills Start Date End Date Status ASPIRIN EC 81 MG PO TBECIndications:Appian Bpm Developer jaida ischemic heart disease Take one pill daily 100 Tab 3 09/01/2011 Active Fish Oil 1200 MG Oral Capsule Take by mouth 2,400 mg daily . 0 Active Metoprolol Succinate ER 25 MG Oral Tablet Extended Release 24 Hour (toPROL XL) Take 1 Tablet by mouth in the morning. 0 Active Triamcinolone Acetonide 0.1 % External Ointment (Aristocort)Indicati ons:Seborrheic dermatitis Apply topically to affected area 2 times a day . To affected area. 15 g 5 11/17/2021 Active Meclizine HCl 25 MG Oral Tablet (Antivert) Take by mouth 1 Tablet as needed in the morning AND 1 Tablet as needed at noon AND 1 Tablet as needed in the evening for Dizziness. 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 (at least 30 min prior to breakfast or other meds). 90 Tablet 3 07/06/2022 Active Ketoconazole 2 % External CreamIndications:Mando orrheic dermatitis Apply to scalp, ears, face once or twice daily as needed for flares 60 g 0 07/27/2022 Active Fluticasone Propionate 50 MCG/ACT Nasal Suspension (Flonase)Indications :Chronic seasonal allergic rhinitis due to pollen Administer 2 Sprays into each nostril in the morning. 48 g 1 08/17/2022 Active Loratadine 10 MG Oral Tablet (Claritin)Indication s:Chronic seasonal allergic rhinitis due to pollen Take 1 Tab by mouth daily. For allergies. 90 Tablet 1 08/17/2022 Active Losartan Potassium 50 MG Oral Tablet (Cozaar)Indications: Chronic ischemic heart disease,Essential hypertension with goal blood pressure less than 140/90 Take 1 Tablet by mouth in the morning. 90 Tablet 1 01/20/2023 Active Celecoxib 200 MG Oral Capsule (CeleBREX) Take 1 Capsule by mouth in the morning. 90 Capsule 1 01/20/2023 Active Omeprazole 20 MG Oral Capsule Delayed Release (PriLOSEC) Take 1 Capsule by mouth in the morning. 90 Capsule 1 01/20/2023 Active Allopurinol 300 MG Oral Tablet (Zyloprim) Take 1 Tab by mouth daily. 90 Tablet 1 01/20/2023 Active documented as of this encounter (statuses as of 03/14/2023) Active Problems Problem Noted Date Diagnosed Date Primary osteoarthritis, right shoulder 3 S/p reverse total shoulder arthroplasty 12/13/19 23 Aortic aneurysm 10/14/2022 LBBB (left bundle branch block) 10/14/2022 Vertigo 01/18/2022 Chronic coronary artery disease 01/18/2022 Ventricular premature beats 01/18/2022 LVH (left ventricular hypertrophy) 11/29/2021 Nonischemic cardiomyopathy 11/29/2021 Irritable bowel syndrome with constipation 01/08 Asymptomatic varicose veins of both lower extrem ities 10/29/2018 Pre-diabetes 08/28/2017 Chronic seasonal allergic rhinitis due to pollen 02/17/2017 Generalized osteoarthritis 10/31/2016 Statin intolerance 10/31/2016 Dyslipidemia, goal LDL below 70 07/01/2016 Status post total replacement of right hip 07/01 Overview: 05/03 Status post total bilateral knee replacement Overview: 06/28 Obesity, Class II, BMI 35-39.9, isolated (see ac tual BMI) 02/29/2016 Herniated nucleus pulposus, lumbar 12/30/2015 Spinal stenosis of lumbar region 12/30/2015 Essential hypertension with goal blood pressure less than 140/90 10/16/2015 Obstructive sleep apnea syndrome 10/16/2015 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 Gastroesophageal reflux disease with esophagitis 12/15/2014 Hyperuricemia 04/01/2013 CAD 03/15/2011 Deviated nasal septum 08/10/2009 Sensorineural hearing loss, bilateral documented as of this encounter (statuses as of 03/14/2023) Resolved Problems Problem Noted Date Diagnosed Date Resolved Date Pancreatitis 01/09/2020 05/26/2021 Physical exam, annual 05/03/20192019 Elevated glucose 08/28/2017 05/03/2019 Muscle tear 10/31/2016 02/17/2017 Overview: Around right hip- repaired 10/31 Dyslipidemia 06/22/2016 07/01/2016 Primary osteoarthritis of right hip 03/11/2016 02/17/2017 Seasonal allergic rhinitis due to pollen 02/29/2016 02/17/2017 Subjective tinnitus 10/16/2015 02/18/20 17 Left inguinal hernia 10/16/2015 017 Overview: Repaired 07/09/15 Amanda's thyroiditis 05/28/2015 11/0 06/2016 Allergic rhinitis due to pollen 12/15/2014 02/29/2016 Edema 12/15/2014 02/17/2017 Acute serous otitis media 12/05/2014 Urinary frequency 08/13/2014 12/15/2014 Overactive bladder 08/13/2014 5 Vertical diplopia 07/23/2014 12/15/2014 Overview: With close reading Muscle spasm of right leg 03/20/2014 Overview: At hip Anemia 10/01/2013 12/15/2014 Overview: Post Op Knee Replacements 06/28 Hypertension goal BP (blood pressure) < 140/90 04/01/2013 10/16/2015 Obesity, Class I, BMI 30.0-3 4.9 (see actual BMI) 04/01/2013 02/29/2016 Complicated acute bronchitis 05/03/2012 08/30/2012 Hypoglycemia 02/28/2012 08/30/2012 Overview: Mild Mid-Morning Hypogycemic episodes. Medial epicondylitis 10/27/2011 013 Overview: Left Elbow GERD (gastroesophageal reflux disease) 09/01/2011 12/15/2014 Deltoid bursitis 09/01/2011 10/27/2011 Overview: Left OBESITY (BMI 30-34) 03/15/2011 04/01/20 13 HTN, goal below 130/80 03/15/201104/01 II A HLP (goal LDL below 70) 03/15/2011 06/22/2016 GOUT IN PAST 03/15/2011 12/15/2014 Family history of ischemic heart disease 03/15/2011 02/29/2016 HYPOTHYROIDISM 03/15/2011 05/28/2015 MUSCULAR LOW BACK PAIN 03/15/201112/15 OSTEOARTHRITIS ESPECIALLY OF KNEES 03/15/2011 03/11/2016 CHEWS TOBACCO 03/15/2011 09/09/2014 CHR OTITIS EXTERNA, W/CERUMENOSIS 01/21/2011 08/30/2012 Noise-induced hearing loss 08/10/2009 1 05/15/2010 RECURRENT ACUTE SINUSITIS 04/22/2008 Subjective tinnitus 07/23/2007 10/16/19 16 Pulsatile tinnitus 8 ALLERGIC RHINITIS 12/15/2014 Sleep apnea 10/16/2015 documented as of this encounter (statuses as of 03/14/2023) Immunizations Name Administration Dates Next Due COVID-19 mRNA, LNP-s, No Pre serve, 2-Dose Series (Moderna) 04/14/2021,07/20/2020,06/22/2020 COVID-19, MRNA-LNP, 23-24, P F, 50 MCG/0.5 mL, 12 YRS AND ABOVE, IM (MODERNA-Spikevax) 02/02/2023 Diptheria/Tetanus (Adult) 03/28/2004 Pneumococcal Conjugate Vacci ne, 20-valent ([id number]) 05/25/2022 Pneumococcal Polysaccharide PPV23 (Pneumovax) 10/27/2011 SEASONAL INFLUENZA, PF, 6 M & Above, IM , (FLULAVAL or FLUZONE) 01/22/2021,01/13/2019,01/29/2017 Season Influenza, Quad, PF, Adjuvanted, 65+ Yrs, IM (FLUAD) 01/16/2020 Seasonal Influenza Vac, Quad , Cell Cult, PF, 6 Mos and Up, IM, (Flucelvax Quad) 02/02/2023 Seasonal Influenza, Split, I IV3, With Preserve, Inj 02/03/2016,01/26/2015,01/29/2014,01/29,02/22/2012,01/15/2011 TDAP (age 10 and older)(Boostrix) 02/28/2012 Zoster Vaccine Recombinant (Shingrix) 11/20/2020 ,11/08/2019 documented as of this encounter Social History Tobacco Use Types Packs/Day Years Used Date Smoking Tobacco: Never Cigarettes 20 Smokeless Tobacco: Former Snuff Quit: 02/26/2011 Alcohol Use Standard Drinks/Week Comments Yes 0 (1 standard drink = 0.6 oz pur e alcohol) occasionally PHQ-2 Answer Date Recorded PHQ Adult Total Score 0 11/20/2020 Hunger Vital Sign Answer Date Recorded Worried About Running Out of Food in the Last Ye ar Never true 11/08/2019 Ran Out of Food in the Last Year Never true 11/08/2019 Sex and Gender Information Value Date Recorded Sex Assigned at Not on file Gender Identity Not on file Sexual Orientation Not on file Job Start Date Occupation Industry Not on file Not on file Not on file documented as of this encounter Plan of Treatment Upcoming Encounters Date Type Department Care Team (Late st Contact Info) Description 07/03/2023 11:40 AM EDT Office Visit Family Practice [address], [place] [address] [facility] [place] [address] Marisa Sinclair DO 07/28/2023 8:40 AM EDT Office Visit Dermatology [facility] [place] [address] [facility] [place] [address] Martha Daly PA-C [address] [facility] [place] [address] Health Maintenance Due Date Last Done Comments Cologuard 07/23/2003 Fecal Occult Blood Test 07/23/2003 Sigmoidoscopy 07/23/2003 Depression Screening 11/20/2021 11/20/2020, 10/31/2016, 07/23/2014 DTaP,Tdap,and Td Vaccines (2 - Td or Tdap) 02/27/2022 02/28/2012, 03/28/2004 Colonoscopy 03/07/2022 03/07/2012 Colorectal Cancer Screening 03/07/2022 TSH 06/30/2023 06/29/2022, 04/19, 04/25/2022, Additional history exists GFR 12/08/2023 02/20/2023, 11/16, 06/29/2022, Additional history exists HbA1c 12/08/2023 12/07/2022, 04/19, 02/18/2022, Additional history exists Albumin/Creatinine Ratio 05/17/2025 023, 11/02/2021, 05/14/2021, Additional history exists Zoster Vaccines Completed 11/20/2020, 11/08/2019 Pneumococcal Vaccine: Pediatrics (0 to 5 Years) and At-Risk Patients (6 to 64 Years) Completed 05/25/2022, 10/27/2011 COVID-19 Vaccine Completed 02/02/2023, , 07/20/2020, Additional history exists Influenza Vaccine (FLU shot) Completed , 01/22/2021, 01/16/2020, Additional history exists GARDASIL-HPV IMMUNIZATION SERIES Aged Out No longer eligible based on patient's age to complete this topic Hepatitis B Aged Out No longer eligi ble based on patient's age to complete this topic MENINGOCOCCAL (MENACTRA/MENVEO) Aged Out No longer eligible based on patient's age to complete this topic documented as of this encounter Medical Devices Not on filedocumented as of this encounter Procedures Procedure Name Priority Date/Time Associated Diagnosis Comments CHEMISTRY-OUTSIDE Routine 02/20/2023 documented in this encounter Results * CHEMISTRY-OUTSIDE (02/20/2023) Not all results display below - see scan for full detail OUTSIDE LAB (SEE SCANNED REPORT) Comment:SCAN INCLUDES - CBCD , PT, INR, PTT, UA, BMP, TYPE AND SCREEN CREATININE-OUTSI DE LAB 1.06 0.6 - 1.4 MG/DL OUTSIDE LAB (SEE SCANNED REPORT) EGFR-OUTSIDE LAB 73.8 ML/MIN/1.73M 2 OUTSIDE LAB (SEE SCANNED REPORT) POTASSIUM-OUTSID E LAB 4.0 3.5 - 5.1 MMOL/L OUTSIDE LAB (SEE SCANNED REPORT) GLUCOSE-OUTSIDE LAB 94 70 - 99 MG/DL OUTSIDE LAB (SEE SCANNED REPORT) HOURS FASTING OUTSID E LAB (SEE SCANNED REPORT) TRIGLYCERIDES-OU TSIDE LAB OUTSIDE LAB (SEE SCANNED REPORT) CHOLESTEROL-OUTS IGOR LAB OUTSIDE LAB (SEE SCANNED REPORT) HDL-OUTSIDE LAB OUTS IGOR LAB (SEE SCANNED REPORT) CHOL/HDL RATIO-OUTSIDE LAB OUTSIDE LAB (SEE SCANNED REPORT) LDL (CALCULATED)-OUT SIDE LAB OUTSIDE LAB (SEE SCANNED REPORT) LDL (DIRECT MEASURE)-OUTSIDE LAB OUTSIDE LAB (SEE SCANNED REPORT) HEMOGLOBIN, [id number] LAB OUTSIDE LAB (SEE SCANNED REPORT) PHOSPHORUS-OUTSI DE LAB OUTSIDE LAB (SEE SCANNED REPORT) PTH-OUTSIDE LAB OUTS IGOR LAB (SEE SCANNED REPORT) MICROALBUMIN RATIO-OUTSIDE LAB OUTSIDE LAB (SEE SCANNED REPORT) PROTEIN, UA-OUTSIDE LAB NEGATIVE NEGATIVE OUTSIDE LAB (SEE SCANNED REPORT) HEMOGLOBIN-OUTSI DE LAB 14.5 14.0 - 18.0 G/DL OUTSIDE LAB (SEE SCANNED REPORT) 02/20/2023 Marquise Tobar MD LABORATORY OUTSIDE LAB (SEE SCANNED REPORT) documented in this encounter Care Teams Flat Knitter Helper Relationship Specialty Start Date End Date Franki Douglass PA-C [address] [facility] [place] [address] PCP - General Physician Instructor Programmable Controllers 03/10/23 documented as of this encounter
--- OUTSIDE RECORDS SUMMARY | 2023-03-29 12:19 | External Medical Summary | Summary of Care ---
Author Name Unknown Organization [facility] Address [address] [facility] [place] [address] Phone [phone] Care Team Providers Care Stone Hand Name Role Phone Franki Douglass PA-C Primary Care Provide r Reason for Visit * Reason Comments Physical-Exam Left shoulder replac ement with Dr Tobar on 03/29. 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; Gastroesophageal reflux disease with esophagitis without hemorrhage; Generalized osteoarthritis; Spinal stenosis of lumbar region, unspecified whether neurogenic claudication present; Obesity, Class II, BMI 35-39.9, isolated (see actual BMI) Allergies Active Allergy Reactions Criticality Noted Date Comments Rosuvastatin Calcium Muscle pain Medium 10/31/2016 Atorvastatin Muscle pain Medium 10/31/2016 Lisinopril Other (Please comment) 03/15/2011 DRY MOUTH Oseltamivir Neuro complications (Please comment) 05/03/2019 dizziness documented as of this encounter (statuses as of 03/13/2023) Medications Medication Sig Dispensed Refills Start Date End Date Status ASPIRIN EC 81 MG PO TBECIndications:Mining Consultant jaida ischemic heart disease Take one pill [...] as of this encounter (statuses as of 03/13/2023) Active Problems Problem Noted Date Diagnosed Date [...] as of this encounter (statuses as of 03/13/2023) Resolved Problems Problem Noted Date Diagnosed Date [...] as of this encounter (statuses as of 03/13/2023) Immunizations Name Administration Dates Next Due COVID-19 mRNA, LNP-s, No Pre serve, 2-Dose Series (Moderna) 04/14/2021,07/20/2020,06/22/2020 COVID-19, MRNA-LNP, 23-24, P F, 50 MCG/0.5 mL, 12 YRS AND ABOVE, IM (MODERNA-Spikevax) 02/02/2023 Diptheria/Tetanus (Adult) 03/28/2004 Pneumococcal Conjugate Vacci ne, 20-valent ([id number]) 05/25/2022 Pneumococcal Polysaccharide PPV23 (Pneumovax) 10/27/2011 SEASONAL [...] 20 Smokeless Tobacco: Former Snuff Quit: 02/26/2011 Tobacco Cessation:Counseling Given: Not Answered Alcohol Use Standard Drinks/Week Comments Yes 0 [...] on file documented as of this encounter Last Filed Vital Signs Vital Sign Reading Time Taken Comments Blood Pressure 126/68 03/13/2023 10:14 AM EST Pulse 62 03/13/2023 10:14 AM EST Temperature 37.1 C (98.7 F) 03/13/2023 1 0:14 AM EST Respiratory Rate 18 03/13/2023 10:1 4 AM EST Oxygen Saturation 94% 03/13/2023 10: 14 AM EST Inhaled Oxygen Concentration - - Weight 110.6 kg (243 lb 12.8 oz) 2022 10:14 AM EST Height 177.8 cm (5' 10") 03/13/2023 10: 14 AM EST Body Mass Index 34.98 03/13/2023 10:14 AM EST documented in this encounter Progress Notes * Franki Douglass PA-C - 03/13/2023 9:55 AM EST Images from the original note were not included. History of Present Illness Leonard Jimenez is a 62 year old male that presents for routine visit/pre op. He reports feeling wellat this time. States that he just had lab work completed 1-2 weeks ago through [facility]. Will call for these results. Had RIGHT shoulder surgery by [facility] Dr. Dang in 10/2022. Doing much better now; completed today. Now scheduled to have LEFT shoulder surgery on 03/29/23. Pain remains moderate, keeps him up at night. Taking tylenol with little relief. Follows with cardiology for history of nonischemic cardiomyopathy, last visit 11/2022. Catheterization 2019 did not show any significant coronary artery disease. He also has a history of dilated ascending aorta. He continues to feel well from a cardiac standpoint; denies any chest pain, worsening shortness of breath, lightheadedness, palpitations. Can walk at least 1 mile at a time. History of prediabetes, last A1c was 5.8 in 11/2022. History of Amanda's thyroiditis, last TSH was 2.1 in 06/2022. Appears last colonoscopy was 02/2012. This showed nonbleeding internal hemorrhoids but was otherwise normal. He was repeat this in 10 years. 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 E03.8, E06.3 Essential hypertension with goal blood pressure less than 140/90 I10 Obstructive sleep apnea syndrome G47.33 Obesity, Class II, BMI 35-39.9, isolated (see actual BMI) E66.9 Status post total bilateral knee replacement Z96.653 Dyslipidemia, goal LDL below 70 E78.5 Status post total replacement of right hip Z96.641 Generalized osteoarthritis M15.9 Statin intolerance Z78.9 Chronic seasonal allergic rhinitis due to pollen J30.1 Pre-diabetes R73.03 Asymptomatic varicose veins of both lower extremities I83.93 Irritable bowel syndrome with constipation K58.1 Vertigo R42 Chronic coronary artery disease I25.10 Herniated nucleus pulposus, lumbar M51.26 Spinal stenosis of lumbar region M48.061 LVH (left ventricular hypertrophy) I51.7 Nonischemic cardiomyopathy (HCC) I42.8 Ventricular premature beats I49.3 Aortic aneurysm (HCC) I71.9 LBBB (left bundle branch block) I44.7 Primary osteoarthritis, right shoulder M19.011 S/p reverse total shoulder arthroplasty Z96.619 Review of patient's allergies indicates: Allergen Reactions Crestor [Rosuvastatin Calcium] Muscle pain Lipitor [Atorvastatin] Muscle pain Lisinopril Other (Please comment) DRY MOUTH Tamiflu [Oseltamivir] Neuro complications (Please comment) dizziness Current Outpatient Medications Medication Sig Dispense Refill ASPIRIN EC 81 MG PO TBEC Take one pill daily 100 Tab 3 Fish Oil 1200 MG Oral Capsule Take by mouth 2,400 mg daily . Metoprolol Succinate ER 25 MG Oral Tablet Extended Release 24 Hour (toPROL XL) Take 1 Tablet by mouth in the morning. Levothyroxine Sodium 150 MCG Oral Tablet (Synthroid) Take 1 Tablet by mouth in the morning. (at least 30 min prior to breakfast or other meds). 90 Tablet 3 Ketoconazole 2 % External Cream Apply to scalp, ears, face once or twice daily as needed for [id number] g 0 Fluticasone Propionate 50 MCG/ACT Nasal Suspension (Flonase) Administer 2 Sprays into each nostril in the morning. 48 g 1 Loratadine 10 MG Oral Tablet (Claritin) Take 1 Tab by mouth daily. For allergies. 90 Tablet 1 Losartan Potassium 50 MG Oral Tablet (Cozaar) Take 1 Tablet by mouth in the morning. 90 Tablet 1 Celecoxib 200 MG Oral Capsule (CeleBREX) Take 1 Capsule by mouth in the morning. 90 Capsule 1 Omeprazole 20 MG Oral Capsule Delayed Release (PriLOSEC) Take 1 Capsule by mouth in the morning. 90Capsule 1 Allopurinol 300 MG Oral Tablet (Zyloprim) Take 1 Tab by mouth daily. 90 Tablet 1 Triamcinolone Acetonide 0.1 % External Ointment (Aristocort) Apply topically to affected area 2 times a day . To affected area. 15 g 5 Meclizine HCl 25 MG Oral Tablet (Antivert) Take by mouth 1 Tablet as needed in the morning AND 1 Tablet as needed at noon AND 1 Tablet as needed in the evening for Dizziness. 30 Tablet 1 No current facility-administered medications for this visit. Past Medical History: Diagnosis Date Acute pancreatitis 01/09/2020 Allergic rhinitis Anemia 10/01/2013 Post Op Knee Replacements 06/28 Asymptomatic varicose veins of both lower extremities 10/29/2018 CAD 03/15/2011 CHEWS TOBACCO 03/15/2011 Chronic seasonal allergic rhinitis due to pollen 02/17/2017 Chronic sinusitis Deltoid bursitis 09/01/2011 Left Deviated nasal septum 08/10/2009 Edema 12/15/2014 Essential hypertension with goal blood pressure less than 140/90 10/16/2015 FAMILY HX, ISCHEMIC HEART DISEASE 03/15/2011 Gastroesophageal reflux disease with esophagitis 12/15/2014 GERD (gastroesophageal reflux disease) 09/01/2011 GOUT IN PAST 03/15/2011 Amanda's thyroiditis 05/28/2015 HTN, goal below 130/80 03/15/2011 Hyperuricemia 04/01/2013 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 05/28/2015 II A HLP (goal LDL below 70) 03/15/2011 Left inguinal hernia 10/16/2015 Repaired 07/09/15 Medial epicondylitis 10/27/2011 Left Elbow Muscle spasm of right leg 03/20/2014 At hip Muscle tear 10/31/2016 Around right hip- repaired 10/31 MUSCULAR LOW BACK PAIN 03/15/2011 OBESITY (BMI 30-34) 03/15/2011 Obesity, Class II, BMI 35-39.9, isolated (see actual BMI) 02/29/2016 Obstructive sleep apnea syndrome 10/16/2015 OSTEOARTHRITIS ESPECIALLY OF KNEES 03/15/2011 Primary osteoarthritis of right hip 03/11/2016 Pulsatile tinnitus Seasonal allergic rhinitis due to pollen 02/29/2016 Sensorineural hearing loss, bilateral Sleep apnea cpap Statin intolerance 10/31/2016 Status post total bilateral knee replacement 03/11/201606/28 Status post total replacement of right hip 07/01/201605/03 Subjective tinnitus 07/23/2007 Vertical diplopia 07/23/2014 With close reading Past Surgical History: Procedure Laterality Date ARTHROPLASTY KNEE TOTAL 06/2013 bilateral EGD, W/ENDOSCOPIC US 12/23/2020 GB sludge, fatty liver, fatty pancreas / ESOPHAGOGASTRODUODENOSCOPY (EGD), FLEXIBLE, TRANSORAL, ENDOSCOPIC ULTRASOUND performed by Rich Aparicio MD at ENDOSCOPY [facility] HAND/FINGER SURGERY NEC INFORMATION Right 2019 hip replacement, subsequent revision a few months later KNEE ARTHROSCOPY/SURGERY x 3 LAPAROSCOPY; CHOLECYSTECTOMY N/A 01/22/2021 ROBOTIC LAPAROSCOPIC CHOLECYSTECTOMY performed by Maribel Huston DO at [facility] LAPAROSCOPY;UNLISTED APPENDIX with umbilical hernia repair UMBIL HERNIA REPAIR (REDUCIBLE) AGE 5+YR N/A 01/22/2021 REPAIR UMBILICAL HERNIA AGE 5 AND OVER performed by Maribel Huston DO at [facility] UNLISTED LAPAROSCOPY;HERNIA Right 07/09/2015 Family History Problem Relation Age of Onset Heart Disorder Father CO Stroke Father No Past Hx Sister No Past Hx Brother No Past Hx Brother Diabetes Son 15 type 2 No Past Hx Son No Past Hx Daughter Family Status Relation Status Mo Alive Fa Sis Alive Bro Alive Bro Alive Son Alive Son Alive Vazquez Alive MGMA MGFA PGMA PGFA Sis (Not Specified) Bro (Not Specified) Bro (Not Specified) Son (Not Specified) Son (Not Specified) Vazquez (Not Specified) Social History Socioeconomic History Marital status: Tobacco Use Smoking status: Never Smokeless tobacco: Former Types: Snuff Quit date: 02/26/2011 Substance and Sexual Activity Alcohol use: Yes Comment: occasionally Drug use: No Sexual activity: Not Currently Social Determinants of Health Food Insecurity: No Food Insecurity (11/08/2019) Hunger Vital Sign Worried About Running Out of Food in the Last Year: Never true Ran Out of Food in the Last Year: Never true Review of Systems Constitutional: Negative. Negative for chills and fever. HENT: Negative. Eyes: Negative. Respiratory: Negative. Negative for shortness of breath. Cardiovascular: Negative. Negative for chest pain, palpitations and leg swelling. Gastrointestinal: Negative. Negative for abdominal pain, blood in stool, constipation, diarrhea, nausea and vomiting. Endocrine: Negative. Genitourinary: Negative. Musculoskeletal: Positive for arthralgias and myalgias. Negative for neck pain and neck stiffness. Skin: Negative. Negative for rash. Allergic/Immunologic: Negative. Neurological: Negative. Negative for dizziness, syncope and light-headedness. Hematological: Negative. Psychiatric/Behavioral: Negative. All other systems reviewed and are negative. Physical Exam BP 126/68 | Pulse 62 | Temp 37.1 C (98.7 F) | Resp 18 | Ht 1.778 m (5' 10") | Wt 110.6 kg (243 lb 12.8 oz) | SpO2 94% | BMI 34.98 kg/m | BSA 2.34 m Physical Exam Vitals and nursing note reviewed. Constitutional: Appearance: Normal appearance. He is obese. HENT: Head: Normocephalic and atraumatic. Right Ear: Tympanic membrane, ear canal and external ear normal. Left Ear: Tympanic membrane, ear canal and external ear normal. Nose: Nose normal. Mouth/Throat: Mouth: Mucous membranes are moist. Pharynx: Oropharynx is clear. Eyes: Extraocular Movements: Extraocular movements intact. Conjunctiva/sclera: Conjunctivae normal. Pupils: Pupils are equal, round, and reactive to light. Cardiovascular: Rate and Rhythm: Normal rate and regular rhythm. Pulses: Normal pulses. Heart sounds: Normal heart sounds. No murmur heard. Pulmonary: Effort: Pulmonary effort is normal. Breath sounds: No wheezing, rhonchi or rales. Abdominal: General: Abdomen is flat. Bowel sounds are normal. Palpations: Abdomen is soft. Tenderness: There is no abdominal tenderness. There is no guarding or rebound. Musculoskeletal: General: Normal range of motion. Cervical back: Normal range of motion and neck supple. Right lower leg: No edema. Left lower leg: No edema. Comments: Left shoulder normal to inspection; mild generalized tenderness to palpation; mild limitation in range of motion secondary to pain; Neer sign slightly positive, able to raise past 90 Skin: General: Skin is warm. Neurological: General: No focal deficit present. Mental Status: He is alert and oriented to person, place, and time. Psychiatric: Mood and Affect: Mood normal. Behavior: Behavior normal. Thought Content: Thought content normal. Judgment: Judgment normal. I have reviewed most recent labs BMP results Recent Labs Units 12/07/22 0000 06/29/22 0000 05/17/22 0000 POTASSIUM-OUTSIDE LAB 4.4 4.3 4.7 CREATININE-OUTSIDE LAB 1.10 1.2 1.1 Lipid panel results Recent Labs Units 12/07/22 0000 06/29/22 0000 05/17/22 0000 CHOLESTEROL-OUTSIDE LAB 186 165 180 LDL (CALCULATED)-OUTSIDE LAB 117.20* 102 122 HDL-OUTSIDE LAB 47.0 40 38 TRIGLYCERIDES-OUTSIDE LAB 109 117 100 CBC results Recent Labs Units 12/07/22 0000 05/17/22 0000 01/27/22 0000 HEMOGLOBIN-OUTSIDE LAB GM/DL 14.2 15.1 15.1 HbA1c results Recent Labs Units 12/07/22 0000 05/17/22 0000 02/18/22 0000 HEMOGLOBIN, [id number] LAB 5.8* 5.9* 6.1 TSH results Recent Labs Units 06/29/22 0000 05/17/22 0000 04/25/22 0000 THYROID UIU/ML -- -- 5.39* TSH - OUTSIDE LAB UIU/ML 2.18 3.07 -- Vitamin D results No results for input(s): "25OHVITAMIND" in the last 69221 hours. Hepatic panel results No results for input(s): "PROT", "ALB", "TBIL", "ALKP", "AST", "ALT" in the last 37401 hours. Protein/cr ratio results No results for input(s): "PROCRRATIO" in the last 17469 hours. Assessment and Plan Primary osteoarthritis, left shoulder He just had lab work completed through [facility]. We will request these records. Pre-diabetes Awaiting most recent labs from 2 weeks ago. Unsure if an A1c was ordered. Essential hypertension with goal blood pressure less than 140/90 Currently well-controlled. Obstructive sleep apnea syndrome Hyperlipidemia with target LDL less than 100 Awaiting most recent labs. Nonischemic cardiomyopathy (HCC) Following with cardiology. 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 Gastroesophageal reflux disease with esophagitis without hemorrhage Generalized osteoarthritis Spinal stenosis of lumbar region, unspecified whether neurogenic claudication present States back pain has been stable. Obesity, Class II, BMI 35-39.9, isolated (see actual BMI) Wrap-Up Follow Up: Return in about 6 months (around 09/11/2023), or if symptoms worsen or fail to improve, for as scheduled. | For: as scheduled | Check-out note: Please call [facility] for most recent labs from a few weeks ago. Time: I spent a total of 20-29 minutes (exact time 26 mins) on the date of service in preparation, delivery, and documentation of the care provided to Leonard Jimenez excluding any time spent in the performance of separately billed services. documented in this encounter Nursing Notes * Monika Vaughn LPN - 03/13/2023 10:15 AM EST Chief Complaint Patient presents with Physical-Exam Left shoulder replacement with Dr Tobar on 03/29. documented in this encounter Plan of Treatment Upcoming Encounters Date Type Department Care Team (Late st Contact Info) Description 07/03/2023 11:40 AM EDT Office Visit [facility] [address] [place] [address] [address] Marisa Sinclair DO 07/28/2023 8:40 AM EDT Office Visit [facility] [place] [address] [place] [address] Martha Daly [facility]-C [address] [facility] [place] [phone] Health Maintenance Due Date Last Done Comments Cologuard 07/23/2003 Fecal Occult Blood Test 07/23/2003 Sigmoidoscopy 07/23/2003 Depression Screening 11/20/2021 11/20/2020, 10/31/2016, 07/23/2014 DTaP,Tdap,and Td Vaccines (2 - Td or Tdap) 02/27/2022 02/28/2012, 03/28/2004 Colonoscopy 03/07/2022 03/07/2012 Colorectal Cancer Screening 03/07/2022 TSH 06/30/2023 06/29/2022, 04/19, 04/25/2022, Additional history exists GFR 12/08/2023 12/07/2022, 06/15, 05/17/2022, Additional history exists HbA1c 12/08/2023 12/07/2022, 04/19, [...] Not on filedocumented as of this encounter Visit Diagnoses Diagnosis Primary osteoarthritis, left shoulder- Primary Pre-diabetes Other abnormal glucose Essential hypertension with goal blood pressure less than 140/90 Obstructive sleep apnea syndrome Obstructive sleep apnea (adult) (pediatric) Hyperlipidemia with target LDL less than 100 Other and unspecified hyperlipidemia Nonischemic cardiomyopathy (HCC) Other primary cardiomyopathies LVH (left ventricular hypertrophy) Cardiomegaly 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
--- OUTSIDE RECORDS SUMMARY | 2023-03-29 12:19 | External Medical Summary | Summary of Care ---
Author Name Unknown Organization [facility] Address [address] [facility] [place] [address] Phone [phone] Care Team Providers Care Breeder Hen Service Technician Name Role Phone Franki Douglass PA-C Primary Care Provide r Encounter Details Date Type Department Care Team (Late st Contact Info) Description 03/16/2023 Result Scan Unspecified Department Franki Douglass PA-C [address] [facility] [place] [address] <No scans attached> Allergies Active Allergy Reactions Criticality Noted Date Comments Rosuvastatin Calcium Muscle pain Medium 10/31/2016 Atorvastatin Muscle pain Medium 10/31/2016 Lisinopril Other (Please comment) 03/15/2011 DRY MOUTH Oseltamivir Neuro complications (Please comment) 05/03/2019 dizziness documented as of this encounter (statuses as of 03/22/2023) Medications Medication Sig Dispensed Refills Start Date End Date Status ASPIRIN EC 81 MG PO TBECIndications:Rehanger jaida ischemic heart disease Take one pill [...] as of this encounter (statuses as of 03/22/2023) Active Problems Problem Noted Date Diagnosed Date [...] as of this encounter (statuses as of 03/22/2023) Resolved Problems Problem Noted Date Diagnosed Date Resolved Date Pancreatitis 01/09/2020 05/26/2021 Physical exam, annual 05/03/20192019 Elevated glucose 08/28/2017 05/03/2019 Muscle tear 10/31/2016 02/17/2017 Overview: Around right hip- repaired 10/31 Dyslipidemia 06/22/2016 07/01/2016 Primary osteoarthritis of right hip 03/11/2016 02/17/2017 Seasonal allergic rhinitis due to pollen 02/29/2016 02/17/2017 Subjective tinnitus 10/16/2015 02/18/20 17 Left inguinal hernia 10/16/2015 017 Overview: Repaired 07/09/15 Amanda's thyroiditis 05/28/201506/2016 Allergic rhinitis due to pollen 12/15/2014 02/29/2016 [...] as of this encounter (statuses as of 03/22/2023) Immunizations Name Administration Dates Next Due COVID-19 mRNA, LNP-s, No Pre serve, 2-Dose Series (Moderna) 04/14/2021,07/20/2020,06/22/2020 COVID-19, MRNA-LNP, 23-24, P F, 50 MCG/0.5 mL, 12 YRS AND ABOVE, IM (MODERNA-Spikevax) 02/02/2023 Diptheria/Tetanus (Adult) 03/28/2004 Pneumococcal Conjugate Vacci ne, 20-valent ([id number]) 05/25/2022 Pneumococcal Polysaccharide PPV23 (Pneumovax) 10/27/2011 SEASONAL [...] 11:40 AM EDT Office Visit [facility] [address], [place] [address] [facility] [place] [address] Marisa Sinclair DO 07/28/2023 8:40 AM EDT Office Visit Dermatology [address], [place] [address] [facility] [place] [address] Martha Daly PA-C [address] [facility] [phone] Health Maintenance Due Date Last Done Comments Cologuard 07/23/2003 Fecal Occult Blood Test 07/23/2003 Sigmoidoscopy 07/23/2003 Depression Screening 11/20/2021 11/20/2020, 10/31/2016, 07/23/2014 DTaP,Tdap,and Td Vaccines (2 - Td or Tdap) 02/27/2022 02/28/2012, 03/28/2004 Colonoscopy 03/07/2022 03/07/2012 Colorectal Cancer Screening 03/07/2022 TSH 06/30/2023 06/29/2022, 04/19, 04/25/2022, Additional history exists HbA1c 12/08/2023 12/07/2022, 04/19, 02/18/2022, Additional history exists GFR 02/21/2024 02/20/2023, 11/16, 06/29/2022, Additional history exists Albumin/Creatinine Ratio 05/17/2025 023, [...] Procedure Name Priority Date/Time Associated Diagnosis Comments PATHOLOGY SCANNED RESULT 03/16/2023 documented in this encounter Results * PATHOLOGY SCANNED RESULT (03/16/2023) 03/16/2023 Franki Douglass PA-C PATHOLOGY documented in this encounter Care Teams Breeder Hen Service Technician Relationship Specialty Start Date End Date Franki Douglass PA-C [address] [facility] [place] [address] PCP - General Physician Crystal Lapper 03/10/23 documented as of this encounter
[2023-03-29] MEDS ORDERED: EpINEphrine HCL INJ 1 MG/ML 1ML SYRINGE IR ONE (12:36)
[2023-03-29] MEDS ORDERED: SUGAMMADEX SODIUM 200 MG/2 ML VIAL IV ONE ×2 (13:13)
--- NOTE | 2023-03-29 13:43 | Operative Report ---
Post Operative Report Pre & Post Diagnosis Operation Date: 03/29/23 10:05 Pre-Op Diagnosis: Left Shoulder Glenohumeral joint Osteoarthritis, biceps tenosynovitis, loose bodies Post-Op Diagnosis: Left Shoulder end-stage glenohumeral joint osteoarthritis, biceps tendinopathy with tenosynovitis, loose bodies glenohumeral joint, chronic degenerative glenoid labral tearing I identified the patient and participated in the time-out.: Yes Procedure Operation Date: 03/29/23 10:05 Actual Procedures p Left Total Shoulder Arthroplasty(Left) - Marquise Tobar MD Surgeon Marquise Tobar MD Pastry Artist Ángel BIANCHI Estimated Blood Loss 45 Findings Consistent with Post-Op Diagnosis Specimens none Drains 2 Hemovac Anesthesia Type General Regional Complications none Disposition Accompanied Patient To Recovery: No Disposition: Recovery Room Indications 62-year-old male with chronic left shoulder glenohumeral osteoarthritis with radiographic [id number] glenohumeral joint with MRI demonstrating large glenohumeral joint effusion osteophyte some loose bodies in the joint biceps tenosynovitis with marked tenosynovial fluid collection around the biceps te ndon. Patient has concentric type A wear pattern. Description of Procedure patient was placed placed under regional block and general anesthetic. The Left upper extremity had a towel roll placed on the medial border of the scapula and translated to the side of the bed so it could be manipulated off of the bed as necessary. A foam headrest was placed and protective eyewear was placed. Lower extremities were well-padded. Patient was positioned in a beachchair position approximately 40 degrees. Shoulder exam demonstrated forward elevation 170 degrees and external rotation 80 degrees . The left upper extremity was prepped and draped in sterile fashion. A deltopectoral approach was performed with a longitudinal incision in a deltopectoral interval. The skin was incised sharply and the subcutaneous flaps were elevated. The cephalic vein was dissected out and retracted laterally with the deltoid. The clavipectoral fascia was divided at the lateral margin of the conjoined tendon and extended up to the CA ligament. A self-retaining retractor was placed. Biceps findings demonstrated large chronic fluid collection around the biceps tendon with proximal biceps tendinopathy within the joint. Biceps tendon was tenodesed to the pectoralis with ipsvkx-ta-uorty and whipstitch #2 FiberWire sutures. The chronic tenosynovitis was resected and the proximal biceps resected. The circumflex vessels were tied off with silk ties and divided laterally. The subscapularis muscle fibers were at the level of the circumflex vess els dissection was taken down to the capsule and a Kitner elevator was used to release the inferior fibers of the capsule protecting the axillary nerve inferiorly. A blunt Hohmann retractors were placed between the inferior located axillary nerve and the capsule. This was verified with a tug test. The rotator was opened up and extended down to the glenoid. The subscapularis was taken down with a transtendinous incision leaving a cuff of tissue for repair on the lesser tuberosity. The incision was carried through the subscapularis to the capsule and then subperiosteally along the inferior capsule exposing the inferior humeral osteophytes. These demonstrated Large inferior osteophytes extending from anterior to posterior. The osteophytes were resected with an artist chisel and rongeur. The humeral head findings demonstrated Grade 4 arthritic wear exposed bone the majority of the humeral head After the osteophytes were resected humeral head is retracted posterior to the glenoid with a Fukuda retractor. The glenoid findings demonstrated similar concentric wear grade 4 osteoarthritic changes on the glenoid with degenerative glenoid labral tearing circumferentially with a large posterior superior tear posterior to the biceps attachment. The labrum was resected and the Intra-articular biceps tendon resected. the biceps was widened and thickened consistent with chronic tendinopathy. A 360 degree release of the subscapularis was performed. Anterior and inferior release was performed about the glenoid. posterior capsular attachment was maintained intact. Subperiosteal release with electrocautery on the glenoid anterior and inferior and also utilizing a small Mckeon elevator to perform that release. Upon completion of the releases the humeral head was reexposed with retractors and humeral head was sized for a size 58 x 54 mm Arthrosurface OVO motion humeral head. The central guidepin was placed. The threaded stop for the reamer was drilled into the head. This was placed at the appropriate depth. The head reamer was used. All debris was irrigated out of the joint. The flat ,head resection reamer was used. The remaining section of bone was removed with a saw. The humerus was then retracted posteriorly again with the Fukuda retractor posterior to the glenoid. The guide for the glenoid component was placed and the guide pin was advanced to the appropriate depth. Glenoid reamers were utilized. The depth gauge verified the depth of the reaming. because of the large glenoid and amount of articular cartilage erosion I chose to use the snowman glenoid. Second drill was placed and the upper section was reamed similar to the lower section followed by the cement post drill guide with flexible drill. The 2 holes were drilled and widened with an awl. Trial component was placed at satisfactory position and depth. Trial was removed and the glenoid reamed area was prepared for cementing with several drill holes placed around the reamed area to accept cement. After further irrigation the reamed area was packed with epinephrine soaked tampon sponges. The Pal[place] cement was vacuum mixed. The cement was injected into the glenoid and c ompressed with a finger compression device. More cement was placed on the back of the glenoid component and it was inserted into the reamed area in appropriate position with the suction device that held onto the component. When the component was appropriate seating position the suction was removed as well as a suction device and direct pressure was placed on of the component and excess cement was cleared and the component was held in position until the cement fully cured. Attention was taken back to the humerus. The humeral head guide was placed onto the humeral head in the appropriate position. The guidepin was readvanced in position. The 12 mm tapered post was inserted to appropriate depth with excellent fixation. At this time 3 drill holes were made along the lateral surface of the lesser tuberosity spanning the distance of the subscapularis attachment and 3 transosseous #5 FiberWire sutures were placed for repair of the subscapularis. After irrigation with xperience, the Hernandez taper of the tapered post was dried and then the humeral component size 58 x 54 Arthrosurface OVO motion humeral head was impacted onto the taper post with stable fixation. This was assessed with a Mckeon elevator to be stable. This was then reduced to the glenoid and range of motion and stability was assessed. After copious irrigation with xperience, the subscapularis was repaired with the #5 FiberWire sutures using Wilfred-Juan suture technique and lateral row soft tissue repair with #2 FiberWire taizzx-wk-obyvz sutures and the rotator interval was closed in maximal external rotation with interrupted #2 FiberWire sutures. the pectoralis tendon was repaired with [id number] #2 FiberWire suture passing sutures to the biceps tendon to reinforce the tenodesis. Range of motion was assessed demonstrating 160 degrees forward flexion 90 degrees abduction and 45 degrees external rotation without any tension on the repair. The wound was copiously irrigated with xperience and 2 Hemovac drains were placed brought out laterally. The deltopectoral interval was repaired with cigqww-[id number] #1 Vicryl sutures and the subcutaneous tissues were closed into 2-0 Vicryl sutures and skin closed with saira and sterile dressings were applied and a shoulder immobilizer. The patient tolerated the procedure well .Ángel BIANCHI, my physician operations assistant, assisted in the procedure with arm positioning soft tissue retraction instrument management suture management and performed the subcutaneous and skin closure dressings and shoulder immobilizer application and will participate in the postop care the patient. I attest to the content of the Intraoperative Record and any orders documented therein. Any exceptions are noted below.
[2023-03-29] MEDS ORDERED: ONDANSETRON INJ 2 MG/ML 2 ML VIAL IV PRN (14:42)
[2023-03-29] MEDS ORDERED: bisacodyL 10 MG SUPP PR PRN (14:42)
[2023-03-29] MEDS ORDERED: HYDROmorphone INJ 0.5 MG/0.5 ML SYR IV PRN (14:42)
[2023-03-29] MEDS ORDERED: METOCLOPRAMIDE HCL INJ 5 MG/ML 2 ML VIAL IV PRN (14:42)
[2023-03-29] MEDS ORDERED: MAGNESIUM HYDROXIDE SUSP 30 ML UDC PO PRN (14:42)
[2023-03-29] MEDS ORDERED: oxyCODONE HCL IR 5 MG TAB (IMMEDIATE RELEASE) PO PRN (14:42)
[2023-03-29] MEDS ORDERED: NALOXONE HCL 0.4 MG/1 ML VIAL/CARP IV PRN (14:42)
--- NOTE | 2023-03-29 14:49 | XRay Report ---
XR shoulder LT min 2V routine CLINICAL HISTORY: Post shoulder surgery COMPARISON: Left shoulder radiographs June 19, 2020. FINDINGS: Alignment of the left shoulder arthroplasty is anatomic. No periprosthetic fracture or une xpected radiopaque foreign bodies are present. Surgical drain is in place. There are skin saira. IMPRESSION: Expected findings following left shoulder arthroplasty. ACT 112: Negative or not required by law. Electronically signed by: Nils Shanks M.D. 03/29/2023 2:47 PM
[2023-03-29] MEDS: SODIUM CHLORIDE 0.9% 1,000 ML IV SCH (14:58)
--- NOTE | 2023-03-29 15:52 | Anesthesiology Progress Note ---
Date of Service March 29, 2023 Anesthesia Post Procedure Vital Signs Vital Signs: Temp Pulse Resp BP Pulse Ox O2 Del Method O2 Flow Rate 03/29/23 15:22 60 18 119/81 93 Room Air 03/29/23 14:40 36.5 C 54 L 16 124/74 94 Room Air 03/29/23 14:20 36.5 C 64 12 100/71 94 Room Air 03/29/23 14:05 36.5 C 63 16 111/74 95 Room Air 03/29/23 14:00 63 17 105/76 96 Oxymask 2 03/29/23 13:51 60 17 117/74 92 Oxymask 4 03/29/23 13:41 68 20 105/68 93 Oxymask 4 03/29/23 13:33 36.0 C L 66 21 117/77 95 Oxymask 6 03/29/23 08:45 36.5 C 55 L 20 147/93 H 96 Room Air Transfer of Care Handoff Completed per policy Notes Mental Status: alert / awake / arousable and participated in evaluation Patient Amnestic to Procedure: Yes Nausea / Vomiting: adequately controlled Pain: adequately controlled Airway Patency, RR, SpO2: stable & adequate BP & HR: stable & adequate Hydration State: stable & adequate Anesthetic Complications: no major complications apparent and Pt Satisfied with anesthetic care
[2023-03-29] MEDS: ACETAMINOPHEN 500 MG TAB PO SCH ×2 (15:54→22:39)
--- NOTE | 2023-03-29 17:09 | Hospitalist Consultation ---
Date of Consultation March 29, 2023 Assessment & Plan (1) Primary osteoarthritis, left shoulder: POD# [address] Tobar Activity and wound care orders as per ortho Pain control with bowel regimen PT/OT Monitor H/H for acute blood loss anemia and transfuse blood products PRN EBL 45 cc (2) Nonischemic cardiomyopathy: Echo 10/2022-EF 55% Continue beta-cristo and ARB. Does not utilize routine diuretics. (3) Ascending aorta dilation: 4.3 cm 10/2022 (4) Hypothyroidism: Continue levothyroxine (5) Gout: Chronic, stable Continue allopurinol DVT PROPHYLAXIS SCDs as per Ortho Patient seen in collaboration with Dr. Hwang. Thank you for this consultation. We will follow the patient with you during their hospital stay. You can reach a member of the [facility] Hospitalist Team 07/11 via the [facility] Hospitalist role in [place] Text. Supervising Physician Co-Signing Physician Notes Attending addendum: The patient was seen and examined in medical floor He has been feeling much better following the left shoulder surgery Complains of pain in the left shoulder with numbness involving the left upper extremity Denies any other significant symptoms On examination Lying in bed without any acute distress Hemodynamically stable and is afebrile Chest-clear to auscultate bilaterally Heart-S1-S2, regular Abdomen-benign Extremities-negative for any edema His labs and imaging studies reviewed Status post left shoulder repair secondary to severe osteoarthritis Management will be as per orthopedic surgeon History of ischemic cardiomyopathy remains stable Agree with assessment and plan as outlined above by Alexandria Hwang History of Present Illness Reason for Consultation: Post Op Medical Management Requesting Physician: Dr. Tobar Attending Physician: Marquise Tobar MD History of Present Illness 62-year-old male with PMH hypothyroidism, dyslipidemia, gout, KAMERON, nonischemic cardiomyopathy, HTN, dilated ascending aorta, osteoarthritis, and other problems listed below who is s/p left TSA today by Dr. Tobar. History is obtained from the patient and review of outpatient PCP and cardiology records. Postoperative, the patient is doing well. He reports his pain is well-controlled. Left arm and hand remain numb from nerve block. Denies chest pain and shortness of breath. No lightheadedness or dizziness. Denies abdominal pain and nausea. Patient has voided since surgery. Allergies Allergy/AdvReac Type Severity Reaction Status Date / Time oseltamivir [From Tamiflu] AdvReac Intermediate Dizziness Verified 03/29/23 08:50 atorvastatin AdvReac Mild MUSCLE Verified 03/29/23 08:50 ACHES lisinopril AdvReac Mild dry mouth Verified 03/29/23 08:50 rosuvastatin AdvReac Mild MUSCLE Verified 03/29/23 08:50 ACHES Home Medications Medication Instructions Recorded Confirmed Type allopurinol 300 mg tablet 300 mg PO HS 10/11/22 03/29/23 History aspirin 81 mg tablet,delayed 81 mg PO HS 10/11/22 03/29/23 History release cholecalciferol (vitamin D3) 50 50 mcg PO HS 10/11/22 03/29/23 History mcg (2,000 unit) tablet (Vitamin D3) fluticasone propionate 50 1 spray intranasal HS 10/11/22 03/29/23 History mcg/actuation nasal spray,suspension levothyroxine 150 mcg tablet 150 mcg PO HS 10/11/22 03/29/23 History loratadine 10 mg capsule 10 mg PO HS 10/11/22 03/29/23 History losartan 50 mg tablet 50 mg PO HS 10/11/22 03/29/23 History metoprolol succinate 25 mg 25 mg PO HS 10/11/22 03/29/23 History tablet,extended release 24 hr omega-3 fatty acids 1,000 mg PO HS 10/11/22 03/29/23 History omeprazole 20 mg capsule,delayed 20 mg PO HS 10/11/22 03/29/23 History release oxycodone 5 mg tablet 5 - 10 mg (1 - 2 x 5 mg) PO 11/01/22 03/29/23 Rx .[id number]-[id number] PRN pain #30 tabs acetaminophen 500 mg tablet 1,000 mg PO Q8 PRN Pain 03/29/23 03/29/23 History (Tylenol Extra Strength) celecoxib 200 mg capsule 200 mg PO DAILY 03/29/23 03/29/23 History Patient History Medical History PVCs (premature ventricular contractions) Prediabetes LBBB (left bundle branch block) Ascending aorta dilation [facility] cardio monitoring per records Vertigo resolved per pt, has meclizine prn Nonischemic cardiomyopathy follows with [facility] cardiology DJD (degenerative joint disease) Hx of gout last flare several yrs ago GERD (gastroesophageal reflux disease) controlled, stable per pt Hypothyroidism Hx of pancreatitis last episode 2 yrs ago Hypertension controlled, stable per pt Hyperlipidemia History of COVID-19 2019>denies hospitalization>resolved Sleep apnea cpap>"has not used for several months d/t shoulder pain, moving so much at night" Surgical History History of total shoulder replacement right History of anesthesia reaction post-tap headache after first hip replacement H/O hand surgery right hand tendon repair History of revision of total hip arthroplasty right History of total hip arthroplasty right History of total knee replacement right/left Hx of vasectomy History of ERCP History of colonoscopy H/O umbilical hernia repair x 2 History of appendectomy History of cholecystectomy History of tooth extraction History of cardiac cath x 2 (last one 2019) Social History Smoking Status: Never smoker Second Hand Exposure: No; Do You Dip or Chew Tobacco: No; Tobacco Cessation Education Requested by Patient: No Hx Alcohol Use: Yes Hx Substance Use: No Preferred Language: Moroccan Communication Ability: Effective Electrical High Tension Tester Required: No Beliefs That Will Affect Care: None Current Living Situation: Spouse Other Information That Helps Us Care for You: No Feels Safe at Home: Yes Safety Concerns: Feels Safe At This Time Assistive Devices: CPAP and Glasses Physical Exam Constitutional: WD/WN, vitals as above no acute distress Eyes: PERRL, conjunctivae normal, anicteric sclerae ENMT: external ear and nose normal, oropharynx normal Respiratory: normal respiratory effort, lungs clear to auscultation Cardiovascular: Rate/Rhythm: regular rate and regular rhythm Vessels: normal peripheral pulses Extremities: no edema Gastrointestinal (Abdomen): normal bowel sounds, soft, nontender, no hepatosplenomegaly Musculoskeletal: S/p left shoulder surgery, dressing CDI, drain in place draining bloody drainage, left arm and hand movement limited secondary to nerve block, circulation intact Skin: no rashes, warm and dry Neurologic: PERRL, EOMI, accommodation nl, no face palsy, no dysarthria Psychiatric: A+Ox3, euthymic affect Results & Data Results & Data Vital Signs (Past 12 Hours) Vital Signs Temp Pulse Resp BP Pulse Ox O2 Del Method O2 Flow Rate 12/13/23 16:32 36.3 C L 55 L 14 99/66 L 91 Room Air 03/29/23 15:56 36.5 C 63 16 111/70 92 Room Air 03/29/23 15:22 60 18 119/81 93 Room Air 03/29/23 14:40 36.5 C 54 L 16 124/74 94 Room Air 03/29/23 14:20 36.5 C 64 12 100/71 94 Room Air 03/29/23 14:05 36.5 C 63 16 111/74 95 Room Air 03/29/23 14:00 63 17 105/76 96 Oxymask 2 03/29/23 13:51 60 17 117/74 92 Oxymask 4 03/29/23 13:41 68 20 105/68 93 Oxymask 4 03/29/23 13:33 36.0 C L 66 21 117/77 95 Oxymask 6 03/29/23 08:45 36.5 C 55 L 20 147/93 H 96 Room Air
[2023-03-29] MEDS ORDERED: ASPIRIN 81 MG ECTAB PO SCH (21:00)
[2023-03-29] MEDS ORDERED: PANTOprazole 40 MG TAB PO SCH (21:00)
[2023-03-29] MEDS ORDERED: METOPROLOL SUCC 25MG EXT REL TAB PO SCH (21:00)
[2023-03-29] MEDS ORDERED: CHOLECALCIFEROL 1,000 UNITS 25 MCG TAB PO SCH (21:00)
[2023-03-29] MEDS ORDERED: LORATADINE 10 MG TAB PO SCH (21:00)
[2023-03-29] MEDS ORDERED: allopurinoL 300 MG TAB PO SCH (21:00)
[2023-03-29] MEDS ORDERED: LEVOTHYROXINE SODIUM 150 MCG TABLET PO SCH (21:00)
[2023-03-29] MEDS ORDERED: SENNA 8.6 MG TAB PO SCH (21:00)
[2023-03-29] MEDS ORDERED: FLUTICASONE PROPIONATE NA SPR 16 GM BTL SCH (21:00)
[2023-03-29] MEDS: DOCUSATE SODIUM 100 MG CAP PO SCH (21:14)
[2023-03-30] MEDS: SODIUM CHLORIDE 0.9% 1,000 ML IV SCH (02:25)
[2023-03-30] MEDS: ACETAMINOPHEN 500 MG TAB PO SCH (05:01)
--- NOTE | 2023-03-30 07:11 | Orthopedic Progress Note ---
Date of Service March 30, 2023 Assessment & Plan (1) Primary osteoarthritis, left shoulder: Plan: Postop day #1 left total shoulder arthroplasty -PT/OT: TSA protocol -Pain management as written -A.m. labs are pending -DVT prophylaxis: SCDs, aspirin 81 mg daily -Discharge planning: Plan for discharge home when stable. Planning on discharge home today. He will be attending outpatient physical therapy. Admission and Anticipated Discharge Date Admission Date: March 29, 2023 Subjective Patient is postop day 1 left total shoulder. Overall he is feeling well this morning. Currently not having any pain. No other complaints. Denies chest pain, shortness of breath, nausea/vomiting/diarrhea, headaches or dizziness. Review of Systems Review of Systems: All systems reviewed & are unremarkable except as noted in Subjective Physical Exam Physical Exam: Left shoulder: Sling is in place. Dressing is clean, dry, intact. Patient has decreased sensation to his hand secondary to nerve block. He is unable to extend his wrist. Does have some finger motion with weakened cigarette roller strength. Distal pulses palpable. Constitutional: WD/WN, vitals as above Results & Data Vital Signs (Past 12 Hours) Vital Signs Temp Pulse Resp BP Pulse Ox O2 Del Method 03/30/23 03:39 36.6 C 57 L 18 116/74 94 Room Air 03/29/23 23:57 36.7 C 57 L 18 106/65 94 Room Air 03/29/23 21:10 Room Air 03/29/23 21:09 62 115/70 94 Room Air 03/29/23 19:49 36.5 C 62 18 113/68 93 Room Air
[2023-03-30 08:07] LABS: Basophils # (auto) 0.02 K/uL (0.00-0.20); Basophils % (auto) 0.2 %; Hematocrit (blood only) 39.7 % (42.0-52.0); Hemoglobin 13.6 g/dl (14.0-18.0); Immature Granulocytes # (auto) 0.06 K/uL (0.01-0.20); Immature Granulocytes % (auto) 0.5 %; Lymphocytes # (auto) 1.27 K/uL (1.20-3.40); Lymphocytes % (auto) 10.9 %; Mean Corpuscular Hemoglobin 31.1 pg (25.0-34.0); Mean Corpuscular Hgb Conc 34.3 g/dL (32.0-36.0); Mean Corpuscular Volume 90.6 fL (80.0-100.0); Mean Platelet Volume 9.2 fL (9.4-12.4); Monocytes # (auto) 0.86 K/uL (0.11-0.59); Monocytes % (auto) 7.4 %; Neutrophils # (auto) 9.39 K/uL (1.40-6.50); Platelet Count 209 K/uL (130-400); RDW Coefficient of Variation 12.6 % (11.5-14.5); RDW Standard Deviation 41.1 fL (36.4-46.3); Red Blood Count 4.38 M/uL (4.70-6.10)
[2023-03-30 08:34] LABS: Calcium 9.6 mg/dl (8.6-10.3); Creatinine Clr Calc Pharmacy 92.2 ml/min; Est GFR (African American) 91.8 ml/min; Est GFR (Non-African American) 79.2 ml/min; Potassium 4.6 mmol/L (3.5-5.1)
[2023-03-30] MEDS ORDERED: MULTIVITAMIN TAB PO SCH (09:00)
[2023-03-30] MEDS: DOCUSATE SODIUM 100 MG CAP PO SCH (09:03)
--- NOTE | 2023-03-30 10:34 | Hospitalist Progress Note ---
Date of Service March 30, 2023 Assessment & Plan (1) Primary osteoarthritis, left shoulder: Plan: POD# [address] Tobar Activity and wound care orders as per ortho Pain control with bowel regimen PT/OT H/H stable. Hgb 13.6 today (from 14.5) (2) Nonischemic cardiomyopathy: Plan: Echo 10/2022-EF 55% Continue beta-cristo and ARB. Does not utilize routine diuretics. (3) Ascending aorta dilation: Plan: 4.3 cm 10/2022 (4) Hypothyroidism: Plan: Continue levothyroxine (5) Gout: Plan: Chronic, stable Continue allopurinol DVT PROPHYLAXIS SCDs as per Ortho Patient seen in collaboration with Dr. Mccullough. Thank you for this consultation. We will follow the patient with you during their hospital stay. You can reach a member of the [facility] Hospitalist Team 07/11 via the [facility] Hospitalist role in [place] Text. Admission and Anticipated Discharge Date Admission Date: March 29, 2023 Supervising Physician Co-Signing Physician Notes Patient was seen and examined at bedside postoperative day 1 for left TSA for primary osteoarthritis of left shoulder. Patient reports operative site pain under control. Hemoglobin has been stable. Patient denies any complaints. On examination left upper extremity in sling with clean dressing over left shoulder. Rest of the examination as above. I have seen and examined the patient and have discussed the case with the shiloh melton above. I agree with the assessment and plan as stated. Subjective Patient seen and examined in 383-2, postop day 1 left total shoulder. Overall he is feeling well this morning and ready to go home. Pain is controlled. Denies any numbness or pain in right upper extremity. Denies chest pain, shortness of breath, nausea/vomiting/diarrhea, headaches or dizziness. Had post op bowel movement and is urinating without issue. Review of Systems Review of Systems: At least ten systems reviewed and negative except as noted in the HPI. Physical Exam Physical Exam: Gen: WD/WN, NAD, sittingup in bed, A&Ox3 HEENT: Normocephalic, atraumatic, conjunctivae moist, sclerae anicteric, mucous membranes moist Lung: Clear to Auscultation bilaterally, no wheezes/rales/rhonchi Heart: Regular rate, regular rhythm, no murmurs, rubs, or gallops Abdomen: Soft, NT, ND +BS x 4 Extremities: RUE in sling, Hemovac visualized, distally NVI, no edema Skin: Warm, no rash Results & Data Results & Data Vital Signs (Past 12 Hours) Vital Signs Temp Pulse Resp BP Pulse Ox O2 Del Method 03/30/23 07:20 36.5 C 56 L 18 130/88 94 Room Air 03/30/23 03:39 36.6 C 57 L 18 116/74 94 Room Air 03/29/23 23:57 36.7 C 57 L 18 106/65 94 Room Air Laboratory Results Short CBC 03/30/23 Range/Units 07:39 WBC 11.60 H (4.8-10.8) K/ul Hgb 13.6 L (14.0-18.0) g/dl Hct 39.7 L (42.0-52.0) % Plt Count 209 (130-400) K/uL BMP 03/30/23 07:39 Sodium 138 Potassium 4.6 Chloride 104 Carbon Dioxide 28 BUN 18 Creatinine 1.00 Glucose 110 H Calcium 9.6 Diagnostic Findings Shoulder X-Ray 03/29/23 13:30 XR shoulder LT min 2V routine CLINICAL HISTORY: Post shoulder surgery COMPARISON: Left shoulder radiographs June 19, 2020. FINDINGS: Alignment of the left shoulder arthroplasty is anatomic. No periprosthetic fracture or unexpected radiopaque foreign bodies are present. Surgical drain is in place. There are skin saira. IMPRESSION: Expected findings following left shoulder arthroplasty. ACT 112: Negative or not required by law. Electronically signed by: Nils Shanks M.D. 03/29/2023 2:47 PM
--- NOTE | 2023-03-30 17:46 | Discharge Summary ---
Date of Service March 30, 2023 Admission HPI Per Admitting Provider 62-year-old male with past medical history significant for hypertension, high cholesterol, KAMERON, hypothyroidism, PVCs, previous right shoulder replacement who presents with ongoing left shoulder pain. Pain is interfering with his daily activities. He has failed conservative measures and would like to proceed with surgical management. Patient denies headaches, sweats, fevers, chills, double vision, blurred vision, cough, sore throat, dysphagia, chest pain, sob, wheezing, n/v/d/c, numbness, tingling, fatigue, urinary symptoms, mood disorders. ROS positive for left shoulder pain and stiffness. Admission Exam Per Admitting Provider Constitutional: well developed and well nourished; no acute distress Eyes: PERRL, conjunctivae normal, anicteric sclerae ENMT: external ear and nose normal, oropharynx normal Neck: trachea midline, no thyromegaly Respiratory: normal respiratory effort, lungs clear to auscultation Cardiovascular: RRR, no murmur, no edema Musculoskeletal: Left shoulder: Crepitus with range of motion. Diffuse tenderness. Active painful range of motion. Active forward flexion to 150 degrees, abduction to 40 degrees, external rotation to 30 degrees. Strength is normal. Skin: no rashes, warm and dry Neurologic: patellar DTR's 2+ bilat, sensation intact Psychiatric: A+Ox3, euthymic affect Principal Diagnosis Left shoulder osteoarthritis Discharge Exam Left shoulder: Sling is in place. Dressing is clean, dry, intact. Patient has decreased sensation to his hand secondary to nerve block. He is unable to extend his wrist. Does have some finger motion with weakened water carter strength. Distal pulses palpable. Constitutional WD/WN, vitals as above Discharge Data Allergies Allergy/AdvReac Type Severity Reaction Status Date / Time oseltamivir [From Tamiflu] AdvReac Intermediate Dizziness Verified 03/29/23 08: 50 atorvastatin AdvReac Mild MUSCLE Verified 03/29/23 08:50 ACHES lisinopril AdvReac Mild dry mouth Verified 03/29/23 08:50 rosuvastatin AdvReac Mild MUSCLE Verified 03/29/23 08:50 ACHES Consultations 03/27/23 13:32 Consult Hospitalist Routine Procedures Performed Operation Date: 03/29/23 10:05 Actual Procedures p Left Total Shoulder Arthroplasty(Left) - Marquise Tobar MD Ordered Studies 03/29/23 09:25 US - OR guided needle placemen Routine Hospital Course (1) Primary osteoarthritis, left shoulder: Postop day #1 left total shoulder arthroplasty -PT/OT: TSA protocol -Pain management as written -A.m. labs are pending -DVT prophylaxis: SCDs, aspirin 81 mg daily -Discharge planning: Plan for discharge home when stable. Planning on discharge home today. He will be attending outpatient physical therapy. Lab Results 03/30/23 Range/Units 07:39 WBC 11.60 H (4.8-10.8) K/ul RBC 4.38 L (4.70-6.10) M/uL Hgb 13.6 L (14.0-18.0) g/dl Hct 39.7 L (42.0-52.0) % MCV 90.6 (80.0-100.0) fL MCH 31.1 (25.0-34.0) pg MCHC 34.3 (32.0-36.0) g/dL RDW Std Deviation 41.1 (36.4-46.3) fL RDW Coeff of [place] 12.6 (11.5-14.5) % Plt Count 209 (130-400) K/uL MPV 9.2 L (9.4-12.4) fL Immature Gran % (Auto) 0.5 % Neut % (Auto) 81.0 % Lymph % (Auto) 10.9 % [place] % (Auto) 7.4 % Eos % (Auto) 0.0 % Baso % (Auto) 0.2 % Neut # (Auto) 9.39 H (1.40-6.50) K/uL Lymph # (Auto) 1.27 (1.20-3.40) K/uL [place] # (Auto) 0.86 H (0.11-0.59) K/uL Eos # (Auto) 0.00 (0.00-0.50) K/uL Baso # (Auto) 0.02 (0.00-0.20) K/uL Immature Gran # (Auto) 0.06 (0.01-0.20) K/uL Sodium 138 (136-145) mmol/L Potassium 4.6 (3.5-5.1) mmol/L Chloride 104 (98-107) mmol/L Carbon Dioxide 28 (21-32) mmol/L Anion Gap 6 (3-11) BUN 18 (6-23) mg/dl Creatinine 1.00 (0.6-1.4) mg/dl Est Cr Clr Drug Dosing 92.2 ml/min Est GFR ( Amer) 91.8 ml/min Est GFR (Non-Af Amer) 79.2 ml/min BUN/Creatinine Ratio 18.0 (10-20) Glucose 110 H (70-99(Fasting)) mg/dl Calcium 9.6 (8.6-10.3) mg/dl Total Time Total Time Spent Total Time Spent (In Minutes): 20 Discharge Plan Discharge Items Patient Disposition: Home - Self-Care Reason For Visit: Left Shoulder Osteoarthritis Discharge Diagnosis: Left shoulder osteoarthritis Activity: Per Instructions section Non-emergency contact: Surgeon Call non-emergency contact if: you have any medication questions, your pain is not controlled, your pain is concerning for you, you have a fever, your temperature is above 101, your wound has increased redness and your wound has increased drainage Follow-up/Referrals: Marisa Sinclair, [Primary Care Provider] - Diet: Regular Addtl Attending Provider Instructions: ACTIVITY RECOMMENDATIONS: SELF CARE INSTRUCTIONS AFTER TOTAL SHOULDER ARTHROPLASTY A. You may do daily exercises as taught in physical therapy while in hospital. No lifting with the operative arm. Please schedule your outpatient physical therapy appointment to begin within 2-3 days after leaving the hospital. Specific restrictions will be written on your physical therapy prescription that is provided to you. B. You are to wear your sling/immobilizer at all times EXCEPT when performing your daily exercises, participating in physical therapy and for hygiene purposes. C. You may perform dry, daily dressing changes. Please keep your incision covered. You may shower 48 hours after surgery. Do not apply soap or any ointment/lotions directly over incision. Do not soak incision in bath tub/swimming pool. D. You may use ice as needed to operative shoulder. SPECIAL CARE INSTRUCTIONS: MEDICATION INSTRUCTIONS: *It is recommended you take Aspirin 81mg daily for four weeks post-op. VERY IMPORTANT TO READ AND REVIEW A. There are a few signs you need to watch for after you are home. Call [facility] at [phone] if you experience any of the followin. Increased severe shoulder pain. Some pain is expected especially when you exercise. 2. Increased swelling in you shoulder or arm; pain or swelling in either upper extremity. 3. Any fluid drainage from the incision. 4. Shortness of breath or chest pain. B. Please call [facility] at [phone] if you have any questions or concerns about your operation or recovery. C. Call your physician if: 1. Temperature is greater than 101 degrees (F). 2. Pain is not relieved by prescribed pain medications. 3. Increase drainage or redness from incision. 4. Unanswered questions or concerns. FOLLOW UP VISIT: Please call [facility] at [phone] to schedule a follow up appointment with Dr. Tobar or his PA in 12-14 days from your surgery date. Stand-Alone Forms: My [facility], Pain - Opioid Pain Management, Smoking Cessation Medications and DC Order Prescriptions: New acetaminophen [Tylenol Extra Strength] 500 mg Tablet 1,000 mg PO Q8 Qty: 60 0RF oxycodone 5 mg Tablet 5 - 10 mg PO .Q4h-6h MDD 6 PRN (Reason: pain) Qty: 30 0RF Rx Instructions: Ongoing therapy, Dr. Tobar supervised Continued losartan 50 mg Tablet 50 mg PO HS aspirin 81 mg Tablet,Delayed Release (Dr/Ec) 81 mg PO HS levothyroxine 150 mcg Tablet 150 mcg PO HS omeprazole 20 mg Capsule,Delayed Release(Dr/Ec) 20 mg PO HS allopurinol 300 mg Tablet 300 mg PO HS metoprolol succinate 25 mg Tablet Extended Release 24 Hr 25 mg PO HS fluticasone propionate 50 mcg/actuation [place],Suspension 1 spray INTRANASAL HS Rx Instructions: administer into each nostril omega-3 fatty acids Capsule 1,000 mg PO HS cholecalciferol (vitamin D3) [Vitamin D3] 50 mcg (2,000 unit) Tablet 50 mcg PO HS loratadine 10 mg Capsule 10 mg PO HS Discontinued oxycodone 5 mg Tablet 5 - 10 mg PO .Q4h-6h MDD 6 PRN (Reason: pain) Qty: 30 0RF Patient Comments: no longer taking 03/20/23 Rx Instructions: Ongoing therapy, Dr. Tobar supervising acetaminophen [Tylenol Extra Strength] 500 mg tablet 1,000 mg PO Q8 PRN (Reason: Pain) celecoxib 200 mg capsule 200 mg PO DAILY Discharge Orders: Discharge Order (Routine); Ordered 03/30/23 Ordered By: Ángel Adam/Other Patient Handouts: DVT Post Op Prevention Admission Data Admit Date/Time: 03/29/23 13:30 Attending Provider: Marquise Tobar Admit Provider: Marquise Tobar Primary Care Provider: Marisa Sinclair Other Providers: Lavern Wade; Phil Mccullough; Gisele Hatfield Other Interventions: Discharge Summary Assessment (RN) Last Done: 03/30/23 10:57
[2023-03-30] MEDS ORDERED: LOSARTAN POTASSIUM 50 MG TAB PO SCH (21:00)
== END 2023-03-30 12:38 | disposition home or self-care (01) ==
LOC: ASU 08:29 → 3N 08:29